=== PATIENT | female | born 1950 | race Caucasian/White ===

== ENCOUNTER 2020-06-15 01:44 | Emergency (ER) | payer MEDICARE, SELFPAY ==
--- NOTE | ~2020-06-15 | CT_ITS ---
EXAMINATION: CT brain wo con DATE: 06/15/2020 02:31 INDICATION: Dizziness TECHNIQUE: Computed tomography (CT) of the head was performed without intravenous contrast. The mA wa s adjusted according to patient size. Iterative reconstruction technique was employed. Exam dose: 60 5.33 mGy-cm total exam DLP. COMPARISON: 05/02/2016 CT brain FINDINGS: There is an old infarct in the posterior inferior aspect of the left cerebellar hemisphere. Bilateral chronic lacunar infarcts of the thalami (series 2 image 26). Bilateral carotid siphon and supraclinoid internal carotid artery calcifications and vertebral artery calcification are noted. There is nonspecific diminished attenuation of the cerebral white matter, l ikely due to chronic small vessel ischemic changes. No intracranial mass lesion or hemorrhage or recent cerebrovascular accident is evident. There is opacification of the posterior left ethmoid air cell. The paranasal sinuses are otherwise un remarkable. Diminished left pleural mastoid effusion since 05/02/2016. 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 Reviewed, dictated and finalized at [facility]. 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
[2020-06-15 01:48] VITALS: BP 165/70; PULSE 61; RESP 22; TEMP 36.1; O2SAT 93
--- NOTE | 2020-06-15 02:00 | ECG_ITS ---
Measurements Intervals [place] Rate: 60 P: [place]: 0 QRS: -74 QRSD: 222 T: 104 QT: 514 QTc: 514 Interpretive Statements ELECTRONIC VENTRICULAR PACEMAKER UNDERLYING PROBABLY ATRIAL FIBRILLATION BASELINE ARTIFACT- I, II, III, AVL NO FURTHER INTERPRETATION IS POSSIBLE ABNORMAL ECG Electronically Signed On 06-15-2020 8:06:07 CDT by Max Rodriguez D.O.
--- NOTE | 2020-06-15 02:02 | ED.NAVMDI ---
HPI - Nausea/Vomiting/Diarrhea General Chief complaint: Nausea/Vomiting/Diarrhea Stated complaint: N/V DIZZINESS Time Seen by Provider: 06/15/20 01:49 Source: patient Mode of arrival: EMS Limitations: no limitations History of Present Illness HPI Narrative: This patient is a 70 year old female who presents for evaluation of dizziness, nausea and vomiting. She states she woke up feeling nauseated tonight. She rolled over in bed and she developed vertigo with diaphoresis. She also reports multiple episodes of vomiting so she called EMS. She states she was given medication in route to hospital, no her dizziness and nausea have improved. She is developing a mild posterior headache. She denies chest pain, sob, fever, chills. She reports report sinus drainage. Related Data Home Medications Medication Instructions Recorded Confirmed aspirin 81 mg tablet,delayed 81 mg PO DAILY 07/30/19 06/15/20 release diazepam 2 mg tablet 2 mg PO BID PRN 07/30/19 02/05/20 digoxin 250 mcg (0.25 mg) tablet 250 mcg PO DAILY 07/30/19 06/15/20 insulin aspart U-100 100 unit/mL 20 unit SUB-Q TID 07/30/19 06/15/20 (3 mL) subcutaneous pen cyclobenzaprine 10 mg tablet 10 mg PO TID PRN 09/12/19 06/15/20 Allergies Allergy/AdvReac Type Severity Reaction Status Date / Time Sulfa (Sulfonamide Allergy Unknown Unknown Verified 06/15/20 02:33 Antibiotics) sulfanilamide Allergy Unknown Unknown Verified 06/15/20 02:33 Review of Systems Review of Systems: All systems reviewed & are unremarkable except as noted in HPI and below Constitutional: Constitutional: Denies chills and Denies fever(s) Eyes: Eyes: Denies change in vision ENT: Reports vertigo, Reports dizziness, Denies otalgia and Reports nasal congestion Cardiovascular: Cardiovascular: Denies chest pain Respiratory: Respiratory: Denies cough and Denies dyspnea Gastrointestinal: Gastrointestinal: Denies abdominal pain Neurologic: Denies focal weakness and Denies numbness [facility] Past Medical History Medical History (Updated 06/15/20 @ 05:26 by Jackeline Ngo MD) Chronic anxiety Chronic kidney disease (CKD) stage G3b/A1, moderately decreased glomerular filtration rate (GFR) between 30-44 mL/min/1.73 square meter and albuminuria creatinine ratio less than 30 mg/g Essential (primary) hypertension Family History Family History (Updated 02/26/19 @ 12:59 by DOCTOR UNKNOWN) Mother Family history of endocrine disorder Family history of diabetes mellitus in first degree relative Family history of coronary artery disease Family history of cardiovascular disease, Onset Age: 81 Sibling Hypertension Family history of diabetes mellitus in first degree relative Father Carcinoma of colon, Onset Age: 75 Patient's father is Family history of malignant neoplasm, Onset Age: 75 Social History Social History Smoking status: Heavy tobacco smoker Second hand tobacco smoke exposure: No Alcohol intake: never Gender identity (if verbalized by the patient): Female Exam Const: General: no acute distress and alert Orientation/consciousness: patient oriented x3 HENMT: Head: normocephalic and atraumatic Face and sinus: face symmetric Mouth: Yes Normal oral and palatal mucosa present, Yes lip normal and Yes oropharynx normal Eyes: Pupils: Equal, round and reactive pupils present EOM: EOMs intact bilaterally Chest: Chest palpation & inspection: normal inspection of the chest Resp: Effort & Inspection: normal respiratory effort, no retractions and no use of accessory muscles Auscultation: clear to auscultation bilaterally and no wheezes Cardio: Rate: regular rate Rhythm: regular rhythm Heart sounds: no murmurs GI: GI Palp: Yes Soft to palpation, No Tenderness to palpation present (GI), No Guarding due to palpation present (GI), No Rigid due to palpation, No Hernia present and No Rebound tenderness present Back/Spine/Pel
[2020-06-15] MEDS: ONDANSETRON INJ 4 MG/2 ML VIAL IV PUSH (02:12)
[2020-06-15 02:23] LABS: Glucose Point of Care 155 (65-105)
--- NOTE | 2020-06-15 02:23 | PC.NURSE ---
pt to CT via stretcher
[2020-06-15 02:25] LABS: Basophils Absolute Auto 0.1 K/mm3 (0.0-0.1); Basophils Percent Auto 0.7 % (0.2-1.2); Eosinophils Absolute Auto 0.2 K/mm3 (0-0.3); Eosinophils Percent Auto 2.3 % (0-4.4); Hematocrit 37.1 % (37.0-47.0); Hemoglobin 12.7 g/dL (12.0-15.0); Immature Granulocyte Absolute 0.07 K/mm3 (0.00-0.031); Immature Granulocyte Percent A 0.7 % (0-0.5); Lymphocytes Percent Auto 8.2 % (18.3-44.2); Mean Corpuscular HGB Conc 34.2 g/dl (32-36); Mean Corpuscular Hemoglobin 33.2 pg (26-34); Mean Corpuscular Volume 97.1 fl (80-100); Mean Platelet Volume 10.2 fl (7.4-10.4); Monocytes Absolute Auto 0.5 K/mm3 (0.1-0.6); Monocytes Percent Auto 4.9 % (2.6-8.5); Neutrophils Absolute Auto 8.2 K/mm3 (1.3-6.7); Neutrophils Percent Auto 83.2 % (45.5-73.1); Platelet Count Result 248 k/mm3 (150-375); Red Blood Count 3.82 M/mm3 (4.2-5.4); Red Cell Distribution Width 12.9 % (11.5-14.5); White Blood Count 9.8 K/mm3 (4.5-10.0)
[2020-06-15 02:43] LABS: Alanine Aminotransferase 15 U/L (4-35); Albumin Level 3.9 g/dL (3.5-5.1); Alkaline Phosphatase 58 U/L (38-126); Anion Gap 8 mmol/L (8-16); Aspartate Amino Transferase 26 U/L (14-36); Bilirubin,Total 0.3 mg/dL (0.2-1.3); Blood Urea Nitrogen 35 mg/dL (7-17); Calcium 9.8 mg/dL (8.4-10.2); Carbon Dioxide 22 mmol/L (22-30); Chloride 102 mmol/L (98-107); Estimated Glomerular Filt Rate 30; Glucose 175 mg/dL (65-105); Potassium 3.9 mmol/L (3.4-5.0); Sodium 132 mmol/L (137-145)
[2020-06-15 02:49] VITALS: BP 150/71; BP 156/68; PULSE 60
[2020-06-15 02:50] VITALS: BP 158/76; PULSE 60
[2020-06-15 03:24] LABS: Add Urine Microscopic? YES; Appearance Urine Cloudy (Clear); Bacteria Urine Trace /hpf; Bilirubin Urine Negative (Negative); Blood Urine 1+ (Negative); Color Urine Yellow (Yellow); Glucose Urine UA 1+ mg/dL (Negative); Ketones Urine Negative (Negative); Leukocyte Esterase Ur Trace LEU/UL (Negative); Mucus Urine Rare /lpf; Nitrate Urine Negative (Negative); Protein Urine 3+ mg/dL (Negative); Squamous Epithelial Cell Urine Occasional /hpf (Few); Urobilinogen Urine Negative mg/dL (<2.0)
[2020-06-15 03:48] VITALS: BP 158/62; PULSE 62; RESP 18; O2SAT 99
--- NOTE | 2020-06-15 04:20 | PC.NURSE ---
pt denies any n/v after po challenge.
[2020-06-15 04:40] VITALS: BP 167/68; PULSE 62; RESP 20; O2SAT 95
--- NOTE | 2020-06-15 04:59 | PC.NURSE ---
pt ambulated at this time w/ alessia rn and tushar rn. pt hed onto wall for a short period of time, but pt states thats her norm. she states she sometimes uses a walker or holds on to mena at home w/ no difficulty. pt denied any n/v/dizziness w/ ambulation. notified.
[2020-06-15 05:49] VITALS: BP 135/92; PULSE 60; RESP 12; O2SAT 99
== END 2020-06-15 05:51 | disposition home or self-care (01) ==
PROVIDERS: Emergency Provider General Practice; PCP Family Medicine
DX: R42 Dizziness and giddiness (principal); R11.2 Nausea with vomiting, unspecified; N39.0 Urinary tract infection, site not specified; I12.9 Hypertensive chronic kidney disease with stage 1 through stage 4 chronic kidney disease, or unspecified chronic kidney disease; N18.3 Chronic kidney disease, stage 3 (moderate); Z95.0 Presence of cardiac pacemaker; R94.31 Abnormal electrocardiogram [ECG] [EKG]; I67.2 Cerebral atherosclerosis; Z79.82 Long term (current) use of aspirin; Z79.4 Long term (current) use of insulin; F41.9 Anxiety disorder, unspecified
CPT/HCPCS: 36415; 70450; 80053; 81001; 82948; 85025; 87086; 87088; 93005; 96365; 96375; 99284; J0131; J2405

== ENCOUNTER 2021-06-26 18:37 | Inpatient (IN) | payer MEDICARE, SELFPAY ==
--- NOTE | ~2021-06-26 | XR_ITS ---
EXAMINATION: XR chest 2V DATE: 06/30/2021 09:56 INDICATION: Shortness of breath. TECHNIQUE: Frontal and lateral views of the chest were obtained. COMPARISON: Chest 2 views 06/26/2021 FINDINGS: There is no pneumonia, pleural effusion, or pneumothorax. Cardiomegaly is noted. There is a left chest wall pacer with leads in the right atrium and right ventricle. IMPRESSION: 1. Cardiomegaly. Reviewed, dictated and finalized at [facility]. IMPRESSION: 1. Cardiomegaly.
--- NOTE | ~2021-06-26 | XR_ITS ---
XR chest 2V DATE: 06/26/2021 19:08 INDICATION: Weakness, cough, shortness of breath, nausea for one week. History of hypertension. Smoke r. TECHNIQUE: PA and lateral views COMPARISON: 06/21/2016 PA and lateral chest FINDINGS: Cardiomegaly. Left-sided pacemaker device with leads overlying right atrium and right ventr icle. There is aortic calcification and tortuosity. There is mild pulmonary vascular congestion and redistribution. Rupa B-lines are noted, suggesting pulmonary interstitial edema. No pleural effusion is evident. No pneumothorax. IMPRESSION: Cardiomegaly, mild pulmonary vascular congestion and redistribution and pulmonary interst itial edema is, consistent with mild congestive heart failure Dual-lead left-sided pacemaker device Aortic calcification and tortuosity Reviewed, dictated and finalized at [facility]. IMPRESSION: Cardiomegaly, mild pulmonary vascular congestion and redistribution and pulmonary interstitial edema is, consistent with mild congestive heart pipe lure Dual-lead left-sided pacemaker device Aortic calcification and tortuosity
[2021-06-26 18:45] VITALS: BP 134/62; PULSE 67; RESP 14; TEMP 36.3; O2SAT 98
--- NOTE | 2021-06-26 18:45 | ECG_ITS ---
Measurements Intervals [place] Rate: 59 P: SD: 0 QRS: -6 QRSD: 108 T: 170 QT: 410 QTc: 408 Interpretive Statements ATRIAL FIBRILLATION WITH SLOW VENTRICULAR RESPONSE LEFT VENTRICULAR HYPERTROPHY WITH ST-T CHANGE BASELINE ARTIFACT- II, III, AVF, V3-V6 ABNORMAL ECG Electronically Signed On 06-27-2021 8:30:35 CDT by Max Rodriguez D.O.
[2021-06-26 19:03] LABS: Basophils Percent Auto 0.4 % (0.2-1.2); Eosinophils Absolute Auto 0.2 K/mm3 (0-0.3); Eosinophils Percent Auto 2.8 % (0-4.4); Immature Granulocyte Absolute 0.05 K/mm3 (0.00-0.031); Immature Granulocyte Percent A 0.7 % (0-0.5); Lymphocytes Absolute Auto 0.75 K/mm3 (0.9-3.2); Mean Corpuscular HGB Conc 31.7 g/dl (32-36); Mean Corpuscular Hemoglobin 33.5 pg (26-34); Mean Corpuscular Volume 105.8 fl (80-100); Mean Platelet Volume 9.8 fl (7.4-10.4); Monocytes Absolute Auto 0.4 K/mm3 (0.1-0.6); Monocytes Percent Auto 5.9 % (2.6-8.5); Neutrophils Percent Auto 80.2 % (45.5-73.1); Platelet Count Result 284 k/mm3 (150-375); Red Blood Count 1.73 M/mm3 (4.2-5.4); Red Cell Distribution Width 16.5 % (11.5-14.5); White Blood Count 7.5 K/mm3 (4.5-10.0)
[2021-06-26 19:07] LABS: Hematocrit 18.3 % (37.0-47.0); Hemoglobin 5.8 g/dL (12.0-15.0)
[2021-06-26 19:15] LABS: Alanine Aminotransferase 35 U/L (4-35); Albumin Level 3.6 g/dL (3.5-5.1); Alkaline Phosphatase 49 U/L (38-126); Anion Gap 6 mmol/L (8-16); Aspartate Amino Transferase 53 U/L (14-36); Bilirubin,Total 0.2 mg/dL (0.2-1.3); Blood Urea Nitrogen 45 mg/dL (7-17); Calcium 10.2 mg/dL (8.4-10.2); Carbon Dioxide 25 mmol/L (22-30); Chloride 104 mmol/L (98-107); Estimated CRCL calculation 28 ml/min; Estimated Glomerular Filt Rate 28; Glucose 111 mg/dL (65-110); Sodium 135 mmol/L (137-145)
[2021-06-26 19:30] VITALS: PULSE 65; RESP 20; O2SAT 99
[2021-06-26 19:35] VITALS: O2SAT 98
[2021-06-26 19:48] LABS: Add Urine Microscopic? YES; Appearance Urine Clear (Clear); Bacteria Urine Trace /hpf; Bilirubin Urine Negative (Negative); Blood Urine Negative (Negative); Color Urine Straw (Yellow); Glucose Urine UA Negative (Negative); Ketones Urine Negative (Negative); Leukocyte Esterase Ur 3+ LEU/UL (Negative); Mucus Urine Rare /lpf; Nitrate Urine Negative (Negative); Protein Urine 2+ mg/dL (Negative); Specific Grav Ur 1.009 (1.001-1.035); Squamous Epithelial Cell Urine Occasional /hpf (Few); Transitional Epi Cells Urine Rare /hpf (None Seen); Urobilinogen Urine Negative mg/dL (<2.0); WBC Urine >75 /hpf
[2021-06-26 20:16] LABS: Reticulocyte Hemoglobin Conten 28.9 pg (28.2-35.7); Reticulocyte Percent 6.88 % (0.7-4.3); Reticulocytes Absolute 0.12 B/L (32.2-175.7)
[2021-06-26 20:17] VITALS: BP 148/67; PULSE 79; RESP 17; O2SAT 100
[2021-06-26 20:53] LABS: Iron 26 ug/dL (37-170)
[2021-06-26 21:03] LABS: Percent Iron Saturation 6 % (20-50)
[2021-06-26 22:05] VITALS: PULSE 74; RESP 14; O2SAT 100
--- NOTE | 2021-06-26 22:25 | ED.WEAKNESS ---
HPI - Weakness General Chief complaint: Weakness Stated complaint: WEAKNESS [id number] Time Seen by Provider: 06/26/21 19:13 Source: patient Mode of arrival: ambulatory Limitations: no limitations History of Present Illness HPI Narrative: 71-year-old female History of diabetes and atrial fibrillation Patient here for complaint of feeling very weak for the last 7 to 10 days No particular inciting event and it is not especially worse today than it has been, just had not improved at all She has had a poor appetite but is eating She has not had a fever, and she does not have a cough vomiting or diarrhea or pain or burning when she urinates She has not vomited there has been no hematemesis no hematochezia and no tarry stools No focal weakness Related Data Home Medications Medication Instructions Recorded Confirmed aspirin 81 mg tablet,delayed 81 mg PO DAILY 07/30/19 03/03/21 release Allergies Allergy/AdvReac Type Severity Reaction Status Date / Time Sulfa (Sulfonamide Allergy Unknown Unknown Verified 06/26/21 19:36 Antibiotics) sulfanilamide Allergy Unknown Unknown Verified 06/26/21 19:36 Review of Systems Review of Systems: All systems reviewed & are unremarkable except as noted in HPI and below Constitutional: Constitutional: Reports no additional constitutional complaints, Denies chills, Reports fatigue, Denies fever(s), Denies headache(s) and Reports weakness Eyes: Eyes: Reports no additional eye complaints and Denies change in vision ENT: Denies headache(s) and Denies sore throat Cardiovascular: Cardiovascular: Denies chest pain and Denies dyspnea Respiratory: Respiratory: Denies cough and Denies dyspnea Gastrointestinal: Gastrointestinal: Denies abdominal pain, Denies bloating, Denies diarrhea and Denies vomiting Genitourinary: Genitourinary: Denies urinary frequency and Denies dysuria Musculoskeletal: Musculoskeletal: Reports myalgias, Denies deformity, Denies arthralgias, Denies joint swelling and Denies numbness Integumentary/Breasts: Skin/Breast: Denies rash and Denies wounds Neurologic: Denies headache(s), Denies focal weakness and Denies numbness Psychiatric: Psychiatric: Reports no additional psychiatric complaints Endocrine: Endocrine: Reports no additional endocrine complaints Hematologic/Lymphatic: Hematologic/Lymphatic: Reports no additional hematologic/lymphatic complaints Allergic/Immunologic: Allergic/Immunologic: Reports no additional allergic/immunologic complaints PMFSH Past Medical History Medical History Breast cancer screening by mammogram Cerebrovascular small vessel disease Chronic anxiety Chronic kidney disease (CKD) stage G3b/A1, moderately decreased glomerular filtration rate (GFR) between 30-44 mL/min/1.73 square meter and albuminuria creatinine ratio less than 30 mg/g Chronic kidney disease (CKD) stage G4/A3, severely decreased glomerular filtration rate (GFR) between 15-29 mL/min/1.73 square meter and albuminuria creatinine ratio greater than 300 mg/g CVA, old, 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 Encounter for hepatitis C screening test for low risk patient Essential (primary) hypertension Insomnia Nail fungal infection (03/03/21) all the nails on the feet CINDI on CPAP Family History Family History (Updated 02/26/19 @ 12:59 by DOCTOR UNKNOWN) Mother Family history of endocrine disorder Family history of diabetes mellitus in first degree relative Family history of coronary artery disease Family history of cardiovascular disease, Onset Age: 81 Sibling Hypertension Family history of diabetes mellitus in first degree relative Father Carcinoma of colon, Onset Age: 75 Patient's father is Family history of malignant neoplasm, Onset Age: 75 Social History Social History (Reviewed
--- NOTE | 2021-06-26 23:30 | PM.IMHP ---
H&P: HPI History of Present Illness Date/Time: 06/26/21 23:30 Chief Complaint: Fatigue Narrative: This is a 71-year-old female with past medical history significant for chronic kidney disease, hypertension, COPD/emphysema, obstructive sleep apnea on CPAP at nighttime, atrial fibrillation, pacemaker, type 2 diabetes mellitus, dyslipidemia, tobacco dependence smokes 1 pack per day. Patient presented to the emergency room due to fatigue ,decreased stamina, shortness of breath, palpitations, dizziness, lightheadedness. Preliminary workup was significant for hemoglobin of 5.6 and hematocrit of 18 patient denies any melena, hematemesis, hematochezia, she has been in her usual state of health until roughly 2 weeks Kirsten is symptoms started. She denied any fevers, rigors ,chills, cough ,sputum production, chest pain or leg swelling. A urinalysis was significant for numerous WBCs present a chest x-ray was significant for cardiomegaly and mild pulmonary vascular congestion. Patient has been placed in observation for further management treatment and evaluation. Review of Systems Review of Systems: Fatigue, shortness of breath palpitations Constitutional: Constitutional: Denies chills, Reports fatigue, Denies fever(s), Reports lethargy, Denies night sweats and Reports weakness Eyes: Eyes: Denies change in vision ENT: Denies dysphagia, Denies nasal congestion, Denies nasal discharge and Denies nasal obstruction Cardiovascular: Cardiovascular: Denies chest pain at rest, Denies chest pain with activity, Denies leg edema, Reports lightheadedness, Denies radiating jaw, neck or arm pain, Denies palpitations, Reports dyspnea, Reports dyspnea on exertion and Denies paroxysmal nocturnal dyspnea Respiratory: Respiratory: Denies change in phlegm color, Denies cough, Denies excessive phlegm production and Denies wheezing Gastrointestinal: Gastrointestinal: Denies melena, Denies hematochezia, Denies dyspepsia, Denies heartburn, Denies nausea and Denies vomiting Genitourinary: Genitourinary: Reports no additional female genitourinary complaints Musculoskeletal: Musculoskeletal: Reports no additional musculoskeletal complaints Integumentary/Breasts: Skin/Breast: Reports system reviewed and no additional complaints, except as docu Neurologic: Reports system reviewed and no additional complaints, except as documented Psychiatric: Psychiatric: Reports no additional psychiatric complaints Endocrine: Endocrine: Reports no additional endocrine complaints Hematologic/Lymphatic: Hematologic/Lymphatic: Reports no additional hematologic/lymphatic complaints Allergic/Immunologic: Allergic/Immunologic: Reports no additional allergic/immunologic complaints [facility] Past Medical History Medical History Breast cancer screening by mammogram Cerebrovascular small vessel disease Chronic anxiety Chronic kidney disease (CKD) stage G3b/A1, moderately decreased glomerular filtration rate (GFR) between 30-44 mL/min/1.73 square meter and albuminuria creatinine ratio less than 30 mg/g Chronic kidney disease (CKD) stage G4/A3, severely decreased glomerular filtration rate (GFR) between 15-29 mL/min/1.73 square meter and albuminuria creatinine ratio greater than 300 mg/g CVA, old, 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
[2021-06-27] VITALS (19 sets, daily range): BP systolic 114–177; BP diastolic 41–89; PULSE 54–89; RESP 14–21; TEMP 35.8–36.8; O2SAT 95–100; BMI 32.8
--- NOTE | 2021-06-27 00:36 | ADMGEN ---
This patient, Jaida Chew, was admitted to 2 Medical Room 258-01 @0030. Patient/family oriented to hospital policies and general routines including ID bracelet, bed and alarms, visiting hours, pain management, procedures, bathroom and other care routines, personal items, smoking policy, room service/diet, and visiting hours. Information on how to activate the Rapid Response Team has been discussed. Patient/Family are encouraged to report perceived risks to care and to ask questions if they do not understand what they are told or what they should do.
[2021-06-27] MEDS: SODIUM CHLORIDE 0.9% IV 250 ML 30 ML IV CONT (01:12)
[2021-06-27] MEDS: ACETAMINOPHEN 325 MG TABLET 650 MG PO (04:11)
[2021-06-27] MEDS: CYCLOBENZAPRINE HCL 10 MG TABLET PO (04:11)
[2021-06-27] MEDS: SODIUM CHLORIDE 0.9% IV 1,000 ML 125 ML IV CONT ×3 (04:14→19:49)
--- NOTE | 2021-06-27 08:16 | PM.IMPN ---
Progress Note: A&P Assessment and Plan (1) Urinary tract infection: Code(s): N39.0 - Urinary tract infection, site not specified Status: Acute Assessment and Plan: Patient has been started on ceftriaxone urine culture is pending strict intake/output denies urinary s/s at this time, denies urinary bleeding (2) Severe anemia: Code(s): D64.9 - Anemia, unspecified Status: Acute Assessment and Plan: Unclear etiology but has a significant drop in hemoglobin however patient with chronic kidney disease Peripheral smear pending Consult to nephrology Consult to GI Will consider Hematology-Oncology consult Retic count of 6.8 Transfused 2 units of packed red blood cells Transfuse as needed Her H/H on 2019 (last year) was 12.7/37.1, then yesterday (06/26/2021) her H/H was 5.8/18.3, then after 2 RBCs H/H was 7.9/25.4 this morning. Ordered occult stool testing, daily Niferex low dose, strict I/Os, and orthostatic vital signs. Instructed nursing staff to have H/H drawn every 6 hours until Hgb >8. (3) Chronic kidney disease (CKD) stage G4/A3, severely decreased glomerular filtration rate (GFR) between 15-29 mL/min/1.73 square meter and albuminuria creatinine ratio greater than 300 mg/g: Code(s): N18.4 - Chronic kidney disease, stage 4 (severe) Status: Acute Assessment and Plan: history of CKD per PCP notes BUN and creatinine at patient's baseline Continue to monitor appreciate [employer] Machine Operator consultation (4) Benign paroxysmal positional vertigo due to bilateral vestibular disorder: Code(s): H81.13 - Benign paroxysmal vertigo, bilateral Status: Acute Assessment and Plan: Supportive care no compaints at this time. (5) Chronic atrial fibrillation: Code(s): I48.20 - Chronic atrial fibrillation, unspecified Status: Acute Assessment and Plan: Rate controlled - HR 73 on VS, BPs range 154/82 to 114/60 On no anticoagulation, takes only daily 81 mg ASA (6) Tobacco use disorder, continuous: Code(s): F17.209 - Nicotine dependence, unspecified, with unspecified nicotine-induced disorders Status: Acute Assessment and Plan: does smoke daily Nicotine patches denied (7) Diabetic peripheral neuropathy associated with type 2 diabetes mellitus: Code(s): E11.42 - Type 2 diabetes mellitus with diabetic polyneuropathy Status: Acute Assessment and Plan: Supportive care, no complaints at this time. 142, 164 glucose levels checked will order PT/OT evaluation once Hgb stable and >8 (8) CINDI on CPAP: Code(s): G47.33 - Obstructive sleep apnea (adult) (pediatric); Z99.89 - Dependence on other enabling machines and devices Status: Acute Assessment and Plan: Continue CPAP at home, has been wearing (9) CVA, old, ataxia: Onset Date: 05/02/16 Code(s): I69.993 - Ataxia following unspecified cerebrovascular disease Status: Acute Assessment and Plan: Unchanged noted history above no new s/s or concerns Subjective Date/time seen: 06/27/21 08:16 Jaida denies any dizziness or light-headedness today. States that her nausea is improving today as well. She is currently on liquid diet, but really wants to have regular food. Will have nurse discuss Dietary orders with JOSEF ibanez GI has a procedure planned for today yet. She denies any recent surgeries or procedures, she states that she has been eating at least 3 meals a day, denies any loss of appetite/N/D/V. She states that she does eat red meat at home, she is not on a restricted diet. She denies any history of receiving blood or taking iron or having significant blood loss or history of cancer. She is postmenopausal, smokes daily, does not drink. PER her last PCP Dr. Walker office visit notes in February 2021: She does see an outpatient title officer regularly. Her PCP noted that she had lost 5 lb since her last visit. She uses her CPAP every night.
[2021-06-27 09:13] LABS: Glucose Point of Care 141 mg/dl (65-105)
[2021-06-27] MEDS: amLODIPine BESYLATE 5 MG TABLET 10 MG PO (09:18)
[2021-06-27] MEDS: allopurinoL 100 MG TABLET 200 MG PO (09:18)
[2021-06-27] MEDS: PANTOPRAZOLE SODIUM IV 40 MG VIAL IV PUSH ×2 (09:18→16:46)
[2021-06-27 10:17] LABS: Basophils Absolute Auto 0.1 K/mm3 (0.0-0.1); Basophils Percent Auto 0.9 % (0.2-1.2); Eosinophils Absolute Auto 0.2 K/mm3 (0-0.3); Eosinophils Percent Auto 3.3 % (0-4.4); Hematocrit 25.4 % (37.0-47.0); Hemoglobin 7.9 g/dL (12.0-15.0); Immature Granulocyte Absolute 0.03 K/mm3 (0.00-0.031); Immature Granulocyte Percent A 0.5 % (0-0.5); Lymphocytes Absolute Auto 1.06 K/mm3 (0.9-3.2); Mean Corpuscular HGB Conc 31.1 g/dl (32-36); Mean Corpuscular Hemoglobin 31.2 pg (26-34); Mean Corpuscular Volume 100.4 fl (80-100); Mean Platelet Volume 9.9 fl (7.4-10.4); Monocytes Absolute Auto 0.5 K/mm3 (0.1-0.6); Monocytes Percent Auto 7.1 % (2.6-8.5); Neutrophils Absolute Auto 4.8 K/mm3 (1.3-6.7); Neutrophils Percent Auto 72.2 % (45.5-73.1); Nucleated Red Blood Cells Perc 0.3 % (0.0-0.2); Platelet Count Result 277 k/mm3 (150-375); Red Blood Count 2.53 M/mm3 (4.2-5.4); Red Cell Distribution Width 20.2 % (11.5-14.5); White Blood Count 6.6 K/mm3 (4.5-10.0)
[2021-06-27 10:43] LABS: Prothrombin Time 13.4 Seconds (11.1-14.7)
[2021-06-27 10:44] LABS: Partial Thromboplastin Time 26.5 SECONDS (22.3-36.8)
--- NOTE | 2021-06-27 10:49 | PM.CNNEP ---
Assessment and Plan Assessment and plan (1) Chronic kidney disease, stage IV (severe): Code(s): N18.4 - Chronic kidney disease, stage 4 (severe) Status: Chronic Assessment and Plan: baseline creatinine runs around 1.5 - 1.8mg/dl in the last couple of years felt to be secondary to diabetes, hypertension, vascular disease, smoking, and age complicated by nephrotic range proteinuria (I have discussed renal biopsy in the past but has not done this) follow repeat labs and H/H (2) Severe anemia: Code(s): D64.9 - Anemia, unspecified Status: Acute Assessment and Plan: quite significant on admission s/p PRBC transfusion will empirically dose Epogen given her known CKD GI consultation follow trend of H/H (3) Essential (primary) hypertension: Code(s): I10 - Essential (primary) hypertension Status: Acute Assessment and Plan: reasonable control at this time (but a bit elevated) follow trend on BP medications (4) Diabetes: Code(s): E11.9 - Type 2 diabetes mellitus without complications Status: Chronic Assessment and Plan: follow accuchecks glycemic control Will continue to follow. History of Present Illness Reason for Consult Consult date: 06/27/21 Reason for consult: chronic renal failure Chief Complaint Chief complaint: Severe Anemia History of Present Illness Narrative: The patient is a 71-year-old [facility] female with past medical history as outlined below with complaints of fatigue in association with shortness of breath. The patient has noticed her symptoms of shortness of breath, fatigue as well as decreased stamina, palpitations, dizziness, and lightheadedness over the past 2 weeks. She denies any other subjective symptoms with regard to fevers, chills, nausea, vomiting, hematochezia, melena, hemoptysis or chest pain. Initially, she thought the symptoms would resolve on their own but as the time passed, it seemed that the symptoms were progressively getting worse. For this reason, she came to the emergency room for further evaluation. Workup and evaluation emergency room demonstrated the patient to be hemodynamically stable but routine blood test demonstrated her hemoglobin to be 5.6 with a hematocrit of 18. As already mentioned, she gave no history with regard to GI loss of blood. Her chest x-ray was significant for cardiomegaly and mild pulmonary vascular congestion as well. Her chemistry was consistent with her known history of chronic kidney disease and did not have any critical electrolyte abnormalities either. Given her symptoms as well as her severe anemia, she was admitted for packed red blood cell transfusion and further evaluation of her anemia. Since her admission, she has been transfused with packed red blood cells and has been seen in consultation by Gastroenterology who is tentatively planning for any EGD and colonoscopy on Tuesday to assess for GI loss. Given her chronic kidney disease, there is concern that she may have some anemia related to this as well. Renal consultation was requested due to her chronic kidney disease. The patient is quite familiar to me as I take care of her outpatient management of her chronic kidney disease. Her baseline creatinine has fluctuated to extremes in the last couple of years but when I last saw her in January of 2021, her creatinine was exactly what it was on admission here to the hospital at 1.8 mg/dL. More concerning has been her nephrotic range proteinuria that dates back as far as 2017 if not longer. Each time I have seen her in the office I brought up the issue of doing a renal biopsy for definitive diagnosis of her chronic kidney disease and she always states that she will think about it and never really pursue that much further than that. My suspicion has always been that her nephrotic range proteinuria as well as her chronic kidney disease is due to her diabetes and hypertension and ass
[2021-06-27 11:51] LABS: Glucose Point of Care 97 mg/dl (65-105)
--- NOTE | 2021-06-27 12:01 | WPDGICN ---
Assessment and Plan Assessment and plan (1) Acute blood loss anemia: Code(s): D62 - Acute posthemorrhagic anemia Status: Acute Assessment and Plan: last year hb in record reviewed and was normal. She is here with symptomatic anemia at least for 1 week but denies overt gib, last colonoscopy 5 years ago. She says that also using xarelto for afib anemia could also be related to advanced CKD with proteinuria but will do EGD and colonoscopy Tuesday to check if any GI source to explain anemia she has macrocytosis with normal b12, folate pending. Will get ldh to check for other causes (bili was normal), may need hematology consult (2) Chronic kidney disease, stage IV (severe): Code(s): N18.4 - Chronic kidney disease, stage 4 (severe) Status: Chronic Assessment and Plan: advanced ckd with proteinuria nephrology on board (3) Urinary tract infection: Code(s): N39.0 - Urinary tract infection, site not specified Status: Acute Assessment and Plan: started on abx (4) Diabetes: Code(s): E11.9 - Type 2 diabetes mellitus without complications Status: Chronic Assessment and Plan: medical treatment (5) Chronic atrial fibrillation: Code(s): I48.20 - Chronic atrial fibrillation, unspecified Status: Acute Assessment and Plan: xarelto on hold (6) Osteoarthritis involving multiple joints on both sides of body: Code(s): M15.9 - Polyosteoarthritis, unspecified Status: Acute (7) Proteinuria: Code(s): R80.9 - Proteinuria, unspecified Status: Acute GI Consult Note Consult date/time: 06/27/21 12:01 Reason for consult: severe anemia HPI: Jaida Chew is a 71 year old female with history of chronic kidney disease stage IV and proteinuria in nephrotic range (she is seeing nephrology as outpatient), hypertension, COPD/emphysema, obstructive sleep apnea on CPAP at nighttime, atrial fibrillation on xarelto, pacemaker, type 2 diabetes mellitus, dyslipidemia, tobacco dependence smokes 1 pack per day. She says that around Labor day weekend fell and hurt her back for which she saw chiropractor but last week with generalized fatigue, weakness and shortness of breath on exertion with palpitations. ER evaluation showed severe anemia with hemoglobin of 5.6, mcv 105, creat 1.8. WBC, inr and platelets normal. She denies overt gib with no melena, hematemesis or hematochezia. Denies using nsaid's (only on norco and cyclobenzaprine for her back pain), still on xarelto for afib but taking for quite some time. She had her last colonoscopy about 5 years ago with polyp, does not remember having egd. Seldom uses pepcid. A urinalysis was significant for numerous WBCs and also protein, started on antibiotics and chest x-ray reviewed, significant for cardiomegaly and mild pulmonary vascular congestion. Admitted and received blood transfusion. Denies abdominal pain but nausea with liquid diet. Review of Systems Constitutional: Constitutional: Reports fatigue and Reports weakness Eyes: Eyes: Reports no additional eye complaints ENT: Reports Normal hearing present Cardiovascular: Cardiovascular: Reports lightheadedness and Reports palpitations Respiratory: Respiratory: Reports dyspnea on exertion Gastrointestinal: Gastrointestinal: Denies abdominal pain, Denies melena and Denies hematochezia Genitourinary: Genitourinary: Denies hematuria Musculoskeletal: Musculoskeletal: Reports back pain Integumentary/Breasts: Skin/Breast: Denies dry skin Neurologic: Denies numbness Psychiatric: Psychiatric: Reports no additional psychiatric complaints [facility] Past Medical History Medical History (Updated 06/27/21 @ 12:09 by Ponce Garcia MD) Acute blood loss anemia Breast cancer screening by mammogram Cerebrovascular small vessel disease Chronic anxiety Chronic kidney disease (CKD) stage G3b/A1, moderately decreased glomerular filtration rate (GFR) be
[2021-06-27 16:42] LABS: Glucose Point of Care 93 mg/dl (65-105)
[2021-06-27] MEDS: ONDANSETRON INJ 4 MG/2 ML VIAL IV PUSH (19:53)
[2021-06-27] MEDS: traZODone HCL 50 MG TABLET PO (20:08)
[2021-06-27 20:26] LABS: Glucose Point of Care 189 mg/dl (65-105)
[2021-06-27 22:58] LABS: Hematocrit 25.1 % (37.0-47.0); Hemoglobin 7.9 g/dL (12.0-15.0)
[2021-06-28] VITALS (9 sets, daily range): BP systolic 133–171; BP diastolic 56–79; PULSE 67–99; RESP 16–21; TEMP 36.3–37.2; O2SAT 98–100
[2021-06-28] MEDS: CYCLOBENZAPRINE HCL 10 MG TABLET PO (01:09)
[2021-06-28 05:13] LABS: Basophils Absolute Auto 0.1 K/mm3 (0.0-0.1); Basophils Percent Auto 0.6 % (0.2-1.2); Eosinophils Absolute Auto 0.2 K/mm3 (0-0.3); Eosinophils Percent Auto 2.4 % (0-4.4); Hematocrit 28.2 % (37.0-47.0); Hemoglobin 8.4 g/dL (12.0-15.0); Immature Granulocyte Absolute 0.03 K/mm3 (0.00-0.031); Immature Granulocyte Percent A 0.4 % (0-0.5); Lymphocytes Percent Auto 12.8 % (18.3-44.2); Mean Corpuscular HGB Conc 29.8 g/dl (32-36); Mean Corpuscular Hemoglobin 31.6 pg (26-34); Mean Platelet Volume 10.1 fl (7.4-10.4); Monocytes Absolute Auto 0.6 K/mm3 (0.1-0.6); Monocytes Percent Auto 7.4 % (2.6-8.5); Neutrophils Percent Auto 76.4 % (45.5-73.1); Platelet Count Result 304 k/mm3 (150-375); Red Blood Count 2.66 M/mm3 (4.2-5.4); Red Cell Distribution Width 20.9 % (11.5-14.5); White Blood Count 7.8 K/mm3 (4.5-10.0)
[2021-06-28] MEDS: SODIUM CHLORIDE 0.9% IV 1,000 ML 125 ML IV CONT (05:26)
[2021-06-28 05:41] LABS: Alanine Aminotransferase 38 U/L (4-35); Albumin Level 3.8 g/dL (3.5-5.1); Alkaline Phosphatase 43 U/L (38-126); Anion Gap 11 mmol/L (8-16); Aspartate Amino Transferase 61 U/L (14-36); Bilirubin,Total 0.6 mg/dL (0.2-1.3); Blood Urea Nitrogen 35 mg/dL (7-17); Calcium 9.8 mg/dL (8.4-10.2); Carbon Dioxide 17 mmol/L (22-30); Chloride 110 mmol/L (98-107); Estimated CRCL calculation 33 ml/min; Estimated Glomerular Filt Rate 34; Glucose 98 mg/dL (65-110); Lactate Dehydrogenase 621 U/L (313-618); Potassium 4.3 mmol/L (3.4-5.0); Sodium 138 mmol/L (137-145)
[2021-06-28 08:26] LABS: Glucose Point of Care 121 mg/dl (65-105)
--- NOTE | 2021-06-28 08:35 | PM.IMPN ---
Progress Note: A&P Assessment and Plan (1) Urinary tract infection: Code(s): N39.0 - Urinary tract infection, site not specified Status: Acute Assessment and Plan: Patient Was started on Rocephin admission urine culture showed no growth and Rocephin was discontinued strict intake/output denies urinary s/s at this time, denies urinary bleeding (2) Severe anemia: Code(s): D64.9 - Anemia, unspecified Status: Acute Assessment and Plan: Unclear etiology but has a significant drop in hemoglobin however patient with chronic kidney disease Peripheral smear pending Consult to nephrology Consult to GI - has ordered an EGD and colonoscopy for tomorrow Consult to Hematology-Oncology ordered and will likely happen tomorrow Retic count of 6.8 Transfused 2 units of packed red blood cells Transfuse as needed Her H/H on 2019 (last year) was 12.7/37.1, then yesterday (06/26/2021) her H/H was 5.8/18.3, then after 2 RBCs H/H was 7.9/25.4 yesterday. Ordered occult stool testing, daily Niferex low dose, strict I/Os, and orthostatic vital signs. (3) Chronic kidney disease (CKD) stage G4/A3, severely decreased glomerular filtration rate (GFR) between 15-29 mL/min/1.73 square meter and albuminuria creatinine ratio greater than 300 mg/g: Code(s): N18.4 - Chronic kidney disease, stage 4 (severe) Status: Acute Assessment and Plan: history of CKD per PCP notes BUN and creatinine at patient's baseline Continue to monitor appreciate [employer] consultation (4) Benign paroxysmal positional vertigo due to bilateral vestibular disorder: Code(s): H81.13 - Benign paroxysmal vertigo, bilateral Status: Acute Assessment and Plan: Supportive care no compaints at this time. (5) Chronic atrial fibrillation: Code(s): I48.20 - Chronic atrial fibrillation, unspecified Status: Acute Assessment and Plan: Rate controlled - HR 56- 88 on VS, BPs range 148/56- 154/79 On no anticoagulation, takes only daily 81 mg ASA xarelto on hold (6) Tobacco use disorder, continuous: Code(s): F17.209 - Nicotine dependence, unspecified, with unspecified nicotine-induced disorders Status: Acute Assessment and Plan: does smoke daily Nicotine patches denied (7) Diabetic peripheral neuropathy associated with type 2 diabetes mellitus: Code(s): E11.42 - Type 2 diabetes mellitus with diabetic polyneuropathy Status: Acute Assessment and Plan: Supportive care, no complaints at this time. 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 She is here with symptomatic anemia at least for 1 week but denies overt gib, last colonoscopy 5 years ago. She says that also using xarelto for afib anemia could also be related to advanced CKD with proteinuria but will do EGD and colonoscopy Tuesday to check if any GI source to explain anemia she has macrocytosis with normal b12, folate pending. Will get ldh to check for other causes (bili was normal), may need hematology consult (11) Chronic kidney disease, stage IV (severe): Code(s): N18.4 - Chronic kidney disease, stage 4 (severe) Status: Chronic Assessment and Plan: advanced CKD with proteinuria nephrology consulted (12) Diabetes:
[2021-06-28] MEDS: amLODIPine BESYLATE 5 MG TABLET 10 MG PO (08:51)
[2021-06-28] MEDS: POLYSACCHARIDE IRON COMPLEX 150 MG CAPSULE PO (08:51)
[2021-06-28] MEDS: PANTOPRAZOLE SODIUM IV 40 MG VIAL IV PUSH ×2 (08:51→17:20)
--- NOTE | 2021-06-28 09:03 | PC.NURSE ---
unable to give 0800 allopurinol on time, waiting for pharmacy to send it. pharmacy notified
--- NOTE | 2021-06-28 09:45 | WPDGIPROGNO ---
Progress Note: A&P Assessment and Plan (1) Acute blood loss anemia: Code(s): D62 - Acute posthemorrhagic anemia Status: Acute Assessment and Plan: will assess with egd and colonoscopy tomorrow to check if any gi loss noted macrotysosi, mildly elevated LDH. If scopes unremarkable then may need hematology consult also she has underlying CKD with proteinuria (2) Acute on chronic kidney failure: Code(s): N17.9 - Acute kidney failure, unspecified; N18.9 - Chronic kidney disease, unspecified Status: Acute Assessment and Plan: by primary team h/o proteinuria and DM (3) Diabetes: Code(s): E11.9 - Type 2 diabetes mellitus without complications Status: Chronic (4) Proteinuria: Code(s): R80.9 - Proteinuria, unspecified Status: Acute (5) Urinary tract infection: Code(s): N39.0 - Urinary tract infection, site not specified Status: Acute Assessment and Plan: on abx (6) Chronic atrial fibrillation: Code(s): I48.20 - Chronic atrial fibrillation, unspecified Status: Acute Subjective Date/time seen: 06/28/21 09:45 Interval history: no new events other than restless night Review of Systems Review of Systems: All systems reviewed & are unremarkable except as noted in HPI and below Exam Const: General: comfortable and no acute distress HENMT: General nose exam: Normal nares present Eyes: General: appearance normal, both eyes and all related structures Neck: Neck: no JVD Resp: Auscultation: clear to auscultation bilaterally Cardio: Rate: regular rate Rhythm: regular rhythm GI: Inspection: non-distended GI Palp: Yes Soft to palpation Skin: General skin exam: normal color Neuro: General: gait normal Speech: normal speech Extrem: General: normal to inspection Psych: Mental Status: mental status grossly normal Objective Data Vital Signs Vital Signs: Vital Signs - 24 hr 06/27/21 14:00 06/27/21 16:55 06/27/21 20:00 Temperature 97.7 F Pulse Rate 65 72 69 Respiratory Rate 16 Blood Pressure 164/60 H Pulse Oximetry 100 06/27/21 20:48 06/27/21 22:30 06/28/21 00:00 Temperature 98.2 F Pulse Rate 66 56 L 73 Respiratory Rate 14 21 H Blood Pressure 154/79 H Pulse Oximetry 100 98 06/28/21 04:00 06/28/21 06:00 06/28/21 08:00 Temperature 98.9 F Pulse Rate 88 80 74 Respiratory Rate 16 Blood Pressure 148/56 H Pulse Oximetry 98 Intake/Output Intake/Output: Intake & Output 06/25/21 06/26/21 06/27/21 06/28/21 23:59 23:59 23:59 23:59 Intake Total 50 5480 1700 Output Total 3600 1500 Balance 50 1880 200 Meds/Results Medications: Active Medications Generic Name Dose Route Start Last Admin Trade Name Freq PRN Reason Stop Dose Admin Acetaminophen 650 mg 06/26/21 22:38 06/27/21 04:11 Acetaminophen 325 Mg Tablet PO 650 mg Q4H PRN Administration Mild Pain (1-3) or Fever Allopurinol 200 mg 06/27/21 08:00 06/27/21 09:18 Allopurinol 100 Mg Tablet PO 200 mg DAILY@0800 [facility] Administration Amlodipine Besylate 10 mg 06/27/21 09:00 06/28/21 08:51 Amlodipine Besylate 5 Mg Tablet PO 10 mg DAILY [facility] Administration Bisacodyl 20 mg 06/28/21 17:00 Bisacodyl 5 Mg Tablet Ec PO 06/28/21 17:01 ONCE ONE Cyclobenzaprine HCl 10 mg 06/27/21 03:03 06/28/21 01:09 Cyclobenzaprine Hcl 10 Mg Tablet PO 10 mg TID PRN Administration muscle spasm Diazepam 2 mg 06/27/21 03:03 Diazepam (*Crx) 2 Mg Tablet PO BID PRN Anxiety Ceftriaxone Sodium/Dextrose 1 gm in 50 mls @ 100 mls/hr 06/27/21 20:00 06/27/21 20:38 Rocephin 1 Gm/D5w 50 Ml IVPB Infused DAILY@2000 [facility] Infusion Insulin Aspart 20 units 06/27/21 08:00 06/27/21 08:30 Insulin Aspart (*Bkc) 100 Units/Ml SUB-Q 07/27/21 07:59 Not Given TIDWM [facility] Insulin Detemir 30 units 06/27/21 09:00 06/27/21 08:30 Insulin Detemir 100 Units/Ml SUB-Q 07/27/21
[2021-06-28] MEDS: allopurinoL 100 MG TABLET 200 MG PO (10:08)
[2021-06-28 10:18] LABS: Lactate Dehydrogenase 484 U/L (313-618)
[2021-06-28 10:41] LABS: Iron 31 ug/dL (37-170)
[2021-06-28 10:56] LABS: Percent Iron Saturation 8 % (20-50)
[2021-06-28 11:36] LABS: Glucose Point of Care 138 mg/dl (65-105)
--- NOTE | 2021-06-28 11:54 | PM.PNNEP ---
Progress Note: A&P Assessment and Plan (1) Chronic kidney disease, stage IV (severe): Code(s): N18.4 - Chronic kidney disease, stage 4 (severe) Status: Chronic Assessment and Plan: baseline creatinine runs around 1.5 - 1.8mg/dl in the last couple of years felt to be secondary to diabetes, hypertension, vascular disease, smoking, and age complicated by nephrotic range proteinuria (I have discussed renal biopsy in the past but has not done this) may need to add sodium bicarbonate -- follow CO2 levels follow repeat labs and UOP (2) Severe anemia: Code(s): D64.9 - Anemia, unspecified Status: Acute Assessment and Plan: quite significant on admission s/p PRBC transfusion will empirically dose Epogen given her known CKD on IV iron as well GI following - EGD + colonoscopy tomorrow follow trend of H/H (3) Essential (primary) hypertension: Code(s): I10 - Essential (primary) hypertension Status: Acute Assessment and Plan: reasonable control at this time follow trend on BP medications (4) Diabetes: Code(s): E11.9 - Type 2 diabetes mellitus without complications Status: Chronic Assessment and Plan: follow accuchecks glycemic control Will continue to follow. Subjective Date/time seen: 06/28/21 11:54 Appears to be doing better today; H/H doing better since admission PRBC transfusion; feels like she has more energy in comparison to prior to hospitalization; noted plans for EGD + colonoscopy to assess for possible GI blood loss; no apparent distress at the time of my visit. Exam Narrative: General: WD/WN male/female in NAD Heart: normal S1 and S2; no rub Lungs: clear to auscultation Abdomen: soft, nontender, nondistended, positive bowel sounds Extremities: no cyanosis or clubbing; no edema Skin: warm and dry Objective Data Vital Signs Vital Signs: Vital Signs Temp Pulse Resp BP Pulse Ox 06/28/21 08:00 74 06/28/21 06:00 37.2 C 80 16 148/56 H 98 06/28/21 04:00 88 06/28/21 00:00 73 06/27/21 22:30 56 L 21 H 98 06/27/21 20:48 36.8 C 66 14 154/79 H 100 06/27/21 20:00 69 Intake/Output Intake/Output: Intake & Output 06/25/21 06/26/21 06/27/21 06/28/21 23:59 23:59 23:59 23:59 Intake Total 50 5480 2780 Output Total 3600 1500 Balance 50 1880 1280 Meds/Results Medications: Active Medications Generic Name Dose Route Start Last Admin Trade Name Freq PRN Reason Stop Dose Admin Acetaminophen 650 mg 06/26/21 22:38 06/27/21 04:11 Acetaminophen 325 Mg Tablet PO 650 mg Q4H PRN Administration Mild Pain (1-3) or Fever Hydrocodone Bitart/Acetaminophen 1 tab 06/28/21 13:27 Hydrocodone/Acetaminophen (*Crx) 7.5-325 Mg Tablet PO Q6H PRN Pain Rated 7-10 Hydrocodone Bitart/Acetaminophen 1 tab 06/28/21 13:30 Hydrocodone/Acetaminophen (*Crx) 5-325 Mg Tablet PO Q6H PRN Pain Rated 4-6 Allopurinol 200 mg 06/27/21 08:00 06/28/21 10:08 Allopurinol 100 Mg Tablet PO 200 mg DAILY@0800 [facility] Administration Amlodipine Besylate 10 mg 06/27/21 09:00 06/28/21 08:51 Amlodipine Besylate 5 Mg Tablet PO 10 mg DAILY [facility] Administration Bisacodyl 20 mg 06/28/21 17:00 Bisacodyl 5 Mg Tablet Ec PO 06/28/21 17:01 ONCE ONE Cyclobenzaprine HCl 10 mg 06/27/21 03:03 06/28/21 01:09 Cyclobenzaprine Hcl 10 Mg Tablet PO 10 mg TID PRN Administration muscle spasm Diazepam 2 mg 06/27/21 03:03 Diazepam (*Crx) 2 Mg Tablet PO BID PRN Anxiety Iron Sucrose 200 mg/ Sodium 60 mls @ 120 mls/hr 06/28/21 16:50 Chloride IVPB QAM [facility] Insulin Aspart 20 units 06/27/21 08:00 06/27/21 08:30 Insulin Aspart (*Bkc) 100 Units/Ml SUB-Q 07/27/21 07:59 Not Given TIDWM [facility] Insulin Detemir 30 units 06/27/21 09:00 06/27/21 08:30 Insulin Detemir 100 Units/Ml SUB-Q 07/27/21 08:59 Not Given
[2021-06-28] MEDS: IRON SUCROSE COMPLEX 200 MG in SODIUM CHLORIDE 0.9% IV 50 ML 120 MG IVPB (17:20)
[2021-06-28] MEDS: BISACODYL 5 MG TABLET EC 20 MG PO (17:20)
[2021-06-28 17:21] LABS: Glucose Point of Care 158 mg/dl (65-105)
[2021-06-28] MEDS: EPOETIN ALFA-EPBX 20,000 UNITS/ML VIAL 20000 UNITS SUB-Q (17:54)
[2021-06-28] MEDS: polyethylene glycoL 3350 238 GM BOTTLE PO (17:55)
[2021-06-28] MEDS: traZODone HCL 50 MG TABLET PO (20:04)
[2021-06-28 20:41] LABS: Glucose Point of Care 137 mg/dl (65-105)
[2021-06-29] VITALS (12 sets, daily range): BP systolic 135–181; BP diastolic 46–93; PULSE 61–89; RESP 16–21; TEMP 36.4; O2SAT 95–100
[2021-06-29] MEDS: MAGNESIUM CITRATE 300 ML BTL PO (04:04)
[2021-06-29] MEDS: LIDOCAINE 5% PATCH 3 PATCH TRANSDERM (04:04)
[2021-06-29 06:41] LABS: Basophils Absolute Auto 0.1 K/mm3 (0.0-0.1); Basophils Percent Auto 0.7 % (0.2-1.2); Eosinophils Absolute Auto 0.2 K/mm3 (0-0.3); Hematocrit 28.8 % (37.0-47.0); Hemoglobin 9.2 g/dL (12.0-15.0); Immature Granulocyte Absolute 0.05 K/mm3 (0.00-0.031); Immature Granulocyte Percent A 0.7 % (0-0.5); Lymphocytes Absolute Auto 0.83 K/mm3 (0.9-3.2); Lymphocytes Percent Auto 11.2 % (18.3-44.2); Mean Corpuscular HGB Conc 31.9 g/dl (32-36); Mean Corpuscular Hemoglobin 31.5 pg (26-34); Mean Corpuscular Volume 98.6 fl (80-100); Mean Platelet Volume 10.3 fl (7.4-10.4); Monocytes Absolute Auto 0.6 K/mm3 (0.1-0.6); Monocytes Percent Auto 7.7 % (2.6-8.5); Neutrophils Absolute Auto 5.8 K/mm3 (1.3-6.7); Neutrophils Percent Auto 77.7 % (45.5-73.1); Platelet Count Result 313 k/mm3 (150-375); Red Blood Count 2.92 M/mm3 (4.2-5.4); Red Cell Distribution Width 19.5 % (11.5-14.5); White Blood Count 7.4 K/mm3 (4.5-10.0)
--- NOTE | 2021-06-29 06:41 | PM.PNNEP ---
Progress Note: A&P Assessment and Plan (1) Chronic kidney disease, stage IV (severe): Code(s): N18.4 - Chronic kidney disease, stage 4 (severe) Status: Chronic Assessment and Plan: baseline creatinine runs around 1.5 - 1.8mg/dl in the last couple of years felt to be secondary to diabetes, hypertension, vascular disease, smoking, and age complicated by nephrotic range proteinuria (I have discussed renal biopsy in the past but patient has been reluctant to comply) may need to add sodium bicarbonate -- follow CO2 levels. Labs are pending follow repeat labs and UOP (2) Severe anemia: Code(s): D64.9 - Anemia, unspecified Status: Acute Assessment and Plan: quite significant on admission s/p PRBC transfusion on Epogen and IV iron as well GI following - EGD + colonoscopy tomorrow follow trend of H/H (3) Essential (primary) hypertension: Code(s): I10 - Essential (primary) hypertension Status: Acute Assessment and Plan: reasonable control at this time follow trend on BP medications (4) Diabetes: Code(s): E11.9 - Type 2 diabetes mellitus without complications Status: Chronic Assessment and Plan: on Accu-Cheks and sliding-scale insulin Subjective Date/time seen: 06/29/21 06:41 Interval history: the patient is feeling better today. She is not as shortness breath as she was on admission she is undergoing colonoscopy prep. Exam Narrative: General: WD/WN male/female in NAD Heart: normal S1 and S2; no rub or gallop Lungs: clear to auscultation Abdomen: soft, nontender, nondistended, positive bowel sounds Extremities: no edema Skin: no rash Objective Data Vital Signs Vital Signs: Vital Signs - 24 hr 06/28/21 08:00 06/28/21 12:00 06/28/21 14:00 Temperature 36.4 C L Pulse Rate 74 70 67 Respiratory Rate 18 Blood Pressure 133/79 Pulse Oximetry 100 06/28/21 16:00 06/28/21 20:00 06/28/21 22:00 Temperature 36.3 C L Pulse Rate 71 99 86 Respiratory Rate 21 H Blood Pressure 171/60 H Pulse Oximetry 100 06/29/21 00:00 06/29/21 04:00 Temperature Pulse Rate 82 66 Respiratory Rate Blood Pressure Pulse Oximetry Intake/Output Intake/Output: Intake & Output 06/26/21 06/27/21 06/28/21 06/29/21 23:59 23:59 23:59 23:59 Intake Total 50 5480 4140 Output Total 3600 3100 600 Balance 50 1880 1040 -600 Meds/Results Medications: Active Medications Generic Name Dose Route Start Last Admin Trade Name Freq PRN Reason Stop Dose Admin Acetaminophen 650 mg 06/26/21 22:38 06/27/21 04:11 Acetaminophen 325 Mg Tablet PO 650 mg Q4H PRN Administration Mild Pain (1-3) or Fever Hydrocodone Bitart/Acetaminophen 1 tab 06/28/21 13:27 Hydrocodone/Acetaminophen (*Crx) 7.5-325 Mg Tablet PO Q6H PRN Pain Rated 7-10 Hydrocodone Bitart/Acetaminophen 1 tab 06/28/21 13:30 Hydrocodone/Acetaminophen (*Crx) 5-325 Mg Tablet PO Q6H PRN Pain Rated 4-6 Allopurinol 200 mg 06/27/21 08:00 06/28/21 10:08 Allopurinol 100 Mg Tablet PO 200 mg DAILY@0800 [facility] Administration Amlodipine Besylate 10 mg 06/27/21 09:00 06/28/21 08:51 Amlodipine Besylate 5 Mg Tablet PO 10 mg DAILY [facility] Administration Cyclobenzaprine HCl 10 mg 06/27/21 03:03 06/28/21 01:09 Cyclobenzaprine Hcl 10 Mg Tablet PO 10 mg TID PRN Administration muscle spasm Diazepam 2 mg 06/27/21 03:03 Diazepam (*Crx) 2 Mg Tablet PO BID PRN Anxiety Epoetin Charles-epbx 10,000 units 06/29/21 16:00 Epoetin Charles-Epbx 10,000 Units/Ml Vial SUB-Q [id number] [facility] Iron Sucrose 200 mg/ Sodium 60 mls @ 120 mls/hr 06/28/21 16:50 06/28/21 18:00 Chloride IVPB Infused QAM [facility] Infusion Insulin Aspart 20 units 06/27/21 08:00 06/27/21 08:30 Insulin Aspart (*Bkc) 100 Units/Ml SUB-Q 07/27/21 07:59 Not Given TIDWM [facility] Insulin Detemir 30 unit
[2021-06-29 07:09] LABS: Alanine Aminotransferase 44 U/L (4-35); Albumin Level 4.4 g/dL (3.5-5.1); Alkaline Phosphatase 59 U/L (38-126); Anion Gap 12 mmol/L (8-16); Aspartate Amino Transferase 62 U/L (14-36); Bilirubin,Total 0.5 mg/dL (0.2-1.3); Blood Urea Nitrogen 28 mg/dL (7-17); Calcium 10.4 mg/dL (8.4-10.2); Carbon Dioxide 19 mmol/L (22-30); Chloride 108 mmol/L (98-107); Estimated CRCL calculation 33 ml/min; Estimated Glomerular Filt Rate 34; Glucose 99 mg/dL (65-110); Sodium 139 mmol/L (137-145)
[2021-06-29 09:10] LABS: Glucose Point of Care 96 mg/dl (65-105)
[2021-06-29] MEDS: amLODIPine BESYLATE 5 MG TABLET 10 MG PO (09:24)
[2021-06-29] MEDS: IRON SUCROSE COMPLEX 200 MG in SODIUM CHLORIDE 0.9% IV 50 ML 120 MG IVPB (09:24)
[2021-06-29] MEDS: allopurinoL 100 MG TABLET 200 MG PO (09:24)
[2021-06-29] MEDS: PANTOPRAZOLE SODIUM IV 40 MG VIAL IV PUSH (09:25)
[2021-06-29] MEDS: HYDROcodone/acetaminophen (*CRX) 7.5-325 MG TABLET 1 TAB PO (09:25)
--- NOTE | 2021-06-29 11:28 | P.PNIM_ITS ---
Progress Note: A&P Assessment and Plan (1) Severe anemia: Onset Date: ~06/26/21 Code(s): D64.9 - Anemia, unspecified Status: Acute Assessment and Plan: Hemoglobin 1 year ago was within normal limits. Presented with hemoglobin 5.8. Etiology unclear, may be multifactorial to include iron deficiency and chronic kidney disease. She is on chronic anticoagulation, however no evidence of bleeding prior to or since admission. * Has received 2 units pRBC on 06/27/2021. H&H stabilized following transfusion. * May be related to chronic kidney disease. Appreciate Nephrology recommendations. Continue Epogen * Gastroenterology following; planning for EGD and colonoscopy today. * Continue Protonix. Holding aspirin and xarelto. Avoid NSAIDs. * Continue with IV iron infusions. Iron panel reviewed * Hematology also consulted, input is appreciated * Continue should trend hemoglobin and hematocrit. Improved with hemoglobin 9.2 today * Peripheral smear reviewed; appreciate hematology input . (2) Chronic kidney disease (CKD) stage G4/A3, severely decreased glomerular filtration rate (GFR) between 15-29 mL/min/1.73 square meter and albuminuria creatinine ratio greater than 300 mg/g: Code(s): N18.4 - Chronic kidney disease, stage 4 (severe) Status: Acute Assessment and Plan: Baseline creatinine noted to be 1.5-1.8 * Appreciate nephrology recommendation * Renal function appears to be at her baseline at this time * Proteinuria noted; nephrology aware and monitoring * Monitor intake and output * Renally dose medications and avoid nephrotoxins * Continue to monitor renal function daily (3) Chronic atrial fibrillation: Code(s): I48.20 - Chronic atrial fibrillation, unspecified Status: Acute Assessment and Plan: Rate has been well controlled * Home xarelto on hold * Continue carvedilol (4) Tobacco use disorder, continuous: Code(s): F17.209 - Nicotine dependence, unspecified, with unspecified nicotine-induced disorders Status: Acute Assessment and Plan: History of smoking 1 pack per day for 50 years * She has declined need for nicotine patch during this admission * Continue to reinforce smoking cessation (5) Diabetes: Code(s): E11.9 - Type 2 diabetes mellitus without complications Status: Chronic Assessment and Plan: Last A1c January 2020 was 6.7 * Continue Accu-Cheks, sliding scale insulin, hypoglycemic protocol * Check updated A1c (6) CINDI on CPAP: Code(s): G47.33 - Obstructive sleep apnea (adult) (pediatric); Z99.89 - Dependence on other enabling machines and devices Status: Acute Assessment and Plan: Continue home CPAP (7) Urinary tract infection: Code(s): N39.0 - Urinary tract infection, site not specified Status: Acute Assessment and Plan: Ruled out. * Started on IV Rocephin that has since been discontinued * Denies urinary symptoms * Urine culture negative Subjective Date/time seen: 06/29/21 11:28 Interval history: Date of service: 06/29/2021 Jaida Chew is a 71-year-old female with a history of CKD, CVA, hypertension, CINDI, diabetes mellitus, chronic anemia who is seen in follow-up for anemia of unknown origin. She reports that she is feeling pretty well today. She complains of some pain in her legs in her hips which she attributes to sitting on the commode. She states that she was on the toilet for most of the night due to colonoscopy prep. S
--- NOTE | 2021-06-29 11:28 | PM.IMPN ---
Progress Note: A&P Assessment and Plan (1) Severe anemia: Onset Date: ~06/26/21 Code(s): D64.9 - Anemia, unspecified Status: Acute Assessment and Plan: Hemoglobin 1 year ago was within normal limits. Presented with hemoglobin 5.8. Etiology unclear, may be multifactorial to include iron deficiency and chronic kidney disease. She is on chronic anticoagulation, however no evidence of bleeding prior to or since admission. Has received 2 units pRBC on 06/27/2021. H&H stabilized following transfusion. May be related to chronic kidney disease. Appreciate Nephrology recommendations. Continue Epogen Gastroenterology following; planning for EGD and colonoscopy today. Continue Protonix. Holding aspirin and xarelto. Avoid NSAIDs. Continue with IV iron infusions. Iron panel reviewed Hematology also consulted, input is appreciated Continue should trend hemoglobin and hematocrit. Improved with hemoglobin 9.2 today Peripheral smear reviewed; appreciate hematology input . (2) Chronic kidney disease (CKD) stage G4/A3, severely decreased glomerular filtration rate (GFR) between 15-29 mL/min/1.73 square meter and albuminuria creatinine ratio greater than 300 mg/g: Code(s): N18.4 - Chronic kidney disease, stage 4 (severe) Status: Acute Assessment and Plan: Baseline creatinine noted to be 1.5-1.8 Appreciate nephrology recommendation Renal function appears to be at her baseline at this time Proteinuria noted; nephrology aware and monitoring Monitor intake and output Renally dose medications and avoid nephrotoxins Continue to monitor renal function daily (3) Chronic atrial fibrillation: Code(s): I48.20 - Chronic atrial fibrillation, unspecified Status: Acute Assessment and Plan: Rate has been well controlled Home xarelto on hold Continue carvedilol (4) Tobacco use disorder, continuous: Code(s): F17.209 - Nicotine dependence, unspecified, with unspecified nicotine-induced disorders Status: Acute Assessment and Plan: History of smoking 1 pack per day for 50 years She has declined need for nicotine patch during this admission Continue to reinforce smoking cessation (5) Diabetes: Code(s): E11.9 - Type 2 diabetes mellitus without complications Status: Chronic Assessment and Plan: Last A1c January 2020 was 6.7 Continue Accu-Cheks, sliding scale insulin, hypoglycemic protocol Check updated A1c (6) CINDI on CPAP: Code(s): G47.33 - Obstructive sleep apnea (adult) (pediatric); Z99.89 - Dependence on other enabling machines and devices Status: Acute Assessment and Plan: Continue home CPAP (7) Urinary tract infection: Code(s): N39.0 - Urinary tract infection, site not specified Status: Acute Assessment and Plan: Ruled out. Started on IV Rocephin that has since been discontinued Denies urinary symptoms Urine culture negative Subjective Date/time seen: 06/29/21 11:28 Interval history: Date of service: 06/29/2021 Jaida Chew is a 71-year-old female with a history of CKD, CVA, hypertension, CINDI, diabetes mellitus, chronic anemia who is seen in follow-up for anemia of unknown origin. She reports that she is feeling pretty well today. She complains of some pain in her legs in her hips which she attributes to sitting on the commode. She states that she was on the toilet for most of the night due to colonoscopy prep. She denies any abdominal pain. Denies nausea or vomiting. She has been having frequent stools with her colonoscopy prep. Denies melena or hematochezia. She denies fevers or chills. Denies shortness of breath, cough, chest pain, or palpitations. She does feel some sinus congestion which she relates to the weather. She reported ?tickle in my throat? this morning but this got better. She has not had anything to eat. She denies dysuria, hematuria,
[2021-06-29 11:54] LABS: Glucose Point of Care 97 mg/dl (65-105)
[2021-06-29 14:18] LABS: Glucose Point of Care 94 mg/dl (65-105)
--- NOTE | 2021-06-29 14:24 | WPDANESEPPF ---
Anes - Initial Pre Proc Eval Procedure: Operation Date: 06/29/21 14:30 Proposed Procedures p Esophagogastroduodenoscopy & Colonoscopy - Ponce Garcia MD Date/Time: 06/29/21 14:24 Surgeon: Una Box PA-C Pre Op Diagnosis: Severe Anemia Patient Data Age: 71 Gender: F Height: 1.6 m Weight: 84.1 kg Last Vital Signs Temp 36.4 C 06/29/21 06:00 Pulse 66 06/29/21 12:00 Resp 20 06/29/21 06:00 BP 181/67 H 06/29/21 06:00 Pulse Ox 98 06/29/21 06:00 Allergies Allergy/AdvReac Type Severity Reaction Status Date / Time Sulfa (Sulfonamide Allergy Unknown Unknown Verified 06/29/21 14:19 Antibiotics) sulfanilamide Allergy Unknown Unknown Verified 06/29/21 14:19 Home Medications Medication Instructions Recorded Confirmed Type aspirin 81 mg tablet,delayed 81 mg PO DAILY 07/30/19 06/27/21 History release ondansetron HCl 4 mg PO Q8H PRN #10 tablet 06/15/20 06/27/21 Rx lisinopril 30 mg tablet 30 mg PO DAILY #90 tablet 01/20/21 06/27/21 Rx pravastatin 40 mg tablet 40 mg PO DAILY #90 tablet 02/02/21 06/27/21 Rx fenofibrate 150 mg capsule 150 mg PO DAILY #90 cap 02/17/21 06/27/21 Rx allopurinol 100 mg tablet 200 mg PO DAILY #60 tablet 03/02/21 06/27/21 Rx cyclobenzaprine 10 mg tablet 10 mg PO TID PRN #90 tablet 03/03/21 06/27/21 Rx trazodone 50 mg tablet 50 mg PO QHS #30 tablet 03/03/21 06/27/21 Rx meclizine 12.5 mg tablet 12.5 mg PO TID PRN #90 tablet 03/19/21 06/27/21 Rx hydrochlorothiazide 25 mg tablet 25 mg PO DAILY #30 tablet 03/20/21 06/27/21 Rx carvedilol 25 mg tablet 25 mg PO Q12H #180 tablet 03/27/21 06/27/21 Rx hydrocodone 10 mg-acetaminophen 1 tablet PO Q6H PRN #120 tablet 06/02/21 06/27/21 Rx 325 mg tablet amlodipine 10 mg tablet 10 mg PO DAILY #90 tablet 06/08/21 06/27/21 Rx diazepam 2 mg PO BID PRN 06/27/21 06/27/21 History insulin aspart U-100 [Novolog 20 unit SUBCUT TID 06/27/21 06/27/21 History Flexpen U-100 Insulin] insulin detemir U-100 [Levemir 30 unit SUB-Q DAILY 06/27/21 06/27/21 History FlexTouch U-100 Insuln] rivaroxaban [Xarelto] 20 mg PO DAILY 06/29/21 06/29/21 History Laboratory Tests 06/28/21 06/28/21 06/29/21 17:19 20:02 06:08 WBC 7.4 K/mm3 K/mm3 (4.5-10.0) RBC 2.92 M/mm3 L M/mm3 (4.2-5.4) Hgb 9.2 g/dL L g/dL (12.0-15.0) Hct 28.8 % L % (37.0-47.0) MCV 98.6 fl D fl (80-100) MCH 31.5 pg pg (26-34) MCHC 31.9 g/dl L g/dl (32-36) RDW 19.5 % H % (11.5-14.5) Plt Count 313 k/mm3 k/mm3 (150-375) MPV 10.3 fl fl (7.4-10.4) Immature Gran % (Auto) 0.7 % H % (0-0.5) Neut % (Auto) 77.7 % H % (45.5-73.1) Lymph % (Auto) 11.2 % L % (18.3-44.2) [place] % (Auto) 7.7 % % (2.6-8.5) Eos % (Auto) 2.0 % % (0-4.4) Baso % (Auto) 0.7 % % (0.2-1.2) Lymph # (Auto) 0.83 K/mm3 L K/mm3 (0.9-3.2) [place] # (Auto) 0.6 K/mm3 K/mm3 (0.1-0.6) Eos # (Auto) 0.2 K/mm3 K/mm3 (0-0.3) Baso # (Auto) 0.1 K/mm3 K/mm3 (0.0-0.1) Abs Immat Gran (auto) 0.05 K/mm3 H K/mm3 (0.00-0.031) Absolute Neuts (auto) 5.8 K/mm3 K/mm3 (1.3-6.7) Absolute Nucleated RBC 0.0 K/mm3 K/mm3 (0.0-0.012) Nucleated RBC % 0.0 % % (0.0-0.2) Sodium Potassium Chloride Carbon Dioxide Anion Gap BUN Creatinine Estim Creat Clear Calc Estimated GFR Glucose POC Capillary Glucose 158 mg/dl H mg/dl 137 mg/dl H mg/dl (65-105) (65-105) Calcium Total Bilirubin AST ALT Alkaline Phosphatase Total Protein Albumin 06/29/21 06/29/21 06/29/21 06:08 09:05 11:52 WBC RBC Hgb Hct MCV
[2021-06-29] MEDS: LACTATED RINGERS 1,000 ML 150 ML IV CONT (14:28)
--- NOTE | 2021-06-29 16:13 | SUR.OPER ---
EGD ENDED 1605 AND COLON STARTED 1611
[2021-06-29 17:10] LABS: Glucose Point of Care 92 mg/dl (65-105)
--- NOTE | 2021-06-29 17:27 | SUR.PHASEII ---
Pts eyeglasses and denture plate were returned to her prior to returning her to her room.
[2021-06-29] MEDS: EPOETIN ALFA-EPBX 10,000 UNITS/ML VIAL 10000 UNITS SUB-Q (17:40)
--- NOTE | 2021-06-29 18:04 | PDONCCN ---
HPI - Date of Consult Date/Time: 06/29/21 18:04 Requesting Physician: Una Box PA-C Primary Care Provider: Rolando Walker MD - Consult Narrative Reason for consult: Anemia Narrative: Jaida Chew is a 71 year old female with history of chronic kidney disease, hypertension, COPD, sleep apnea, atrial fibrillation and type 2 diabetes came into the hospital with total exhaustion and fatigue. She denies any chest pain but does have some shortness of breath. She was having some lightheadedness and dizziness and found to have hemoglobin of 5.6 on arrival to the hospital. She denies any melena and hematochezia. She denies any fever chills. She denies any weight loss. She lives by herself and does not eat much. She denies being a vegetarian. Patient had EGD done today that showed single bleeding lesion in the stomach there was cauterized. Patient also received 2 units of packed red blood cell. He is feeling better. Review of Systems - Review of Systems All systems reviewed & are unremarkable except as noted in HPI and bel - Neurologic Reports system reviewed and no additional complaints, except as documented, Reports hearing normal, Reports weakness, Denies headache(s), Denies focal weakness, Denies numbness PMFSH Medical History: Medical History (Last Updated 06/28/21 @ 09:47 by Ponce Garcia MD) Acute blood loss anemia Acute on chronic kidney failure Breast cancer screening by mammogram Cerebrovascular small vessel disease Chronic anxiety Chronic kidney disease (CKD) stage G3b/A1, moderately decreased glomerular filtration rate (GFR) between 30-44 mL/min/1.73 square meter and albuminuria creatinine ratio less than 30 mg/g Chronic kidney disease (CKD) stage G4/A3, severely decreased glomerular filtration rate (GFR) between 15-29 mL/min/1.73 square meter and albuminuria creatinine ratio greater than 300 mg/g CVA, old, ataxia Onset Date: 05/02/16 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 left cerebellar Diabetic peripheral neuropathy associated with type 2 diabetes mellitus Encounter for hepatitis C screening test for low risk patient Essential (primary) hypertension Insomnia Nail fungal infection Onset Date: 03/03/21 all the nails on the feet CINDI on CPAP Proteinuria Family History: Family History (Last Reviewed 06/27/21 @ 00:41 by Leatha Tate RN) Mother Family history of endocrine disorder Family history of diabetes mellitus in first degree relative Family history of coronary artery disease Family history of cardiovascular disease, Onset Age: 81 Sibling Hypertension Family history of diabetes mellitus in first degree relative Father Carcinoma of colon, Onset Age: 75 Patient's father is Family history of malignant neoplasm, Onset Age: 75 - Social History Social History: Social History (Last Reviewed 03/03/21 @ 14:45 by Yadira Del Castillo MA) Gender Identity: Gender identity (if verbalized by the patient): Female Alcohol Use: Alcohol intake: never Substance Use: Substance use: never Substance use type: does not use Others: Spiritual care concerns: No Smoking Status: Smoking status: Current every day smoker Tobacco type: cigarettes Second hand tobacco smoke exposure: No Smoking Pack-years: Smoking packs per day: 1 Smoking cigarettes per day: 20.0 Years smoked: 50 Smoking pack-years: 50.00 Meds Home Medications Medication Instructions Recorded Confirmed Type aspirin 81 mg tablet,delayed 81 mg PO DAILY 07/30/19 06/27/21 History release ondansetron HCl 4 mg PO Q8H PRN #10 tablet 06/15/20 06/27/21 Rx lisinopril 30 mg tablet 30 mg PO DAILY #90 tablet 01/20/21 06/27/21 Rx pravastatin 40 mg tablet 40 mg PO DAILY #90 tablet 02/02/21 06/27/21 Rx fenofibrate 150 mg capsule 150 mg PO DAILY #90 cap 02/17/21 06/27/21 Rx allopurinol 100 mg tablet 200 mg PO DAILY #60 tablet
[2021-06-29] MEDS: PANTOPRAZOLE 40 MG TABLET PO (21:04)
[2021-06-29] MEDS: traZODone HCL 50 MG TABLET PO (21:04)
[2021-06-29 22:39] LABS: Glucose Point of Care 155 mg/dl (65-105)
[2021-06-29] MEDS: CYCLOBENZAPRINE HCL 10 MG TABLET PO (23:49)
[2021-06-30] VITALS (7 sets, daily range): BP systolic 150; BP diastolic 63–64; PULSE 55–73; RESP 14–17; TEMP 36.8; O2SAT 98–100
[2021-06-30 06:23] LABS: Basophils Percent Auto 0.6 % (0.2-1.2); Eosinophils Absolute Auto 0.2 K/mm3 (0-0.3); Eosinophils Percent Auto 2.3 % (0-4.4); Hematocrit 25.7 % (37.0-47.0); Hemoglobin 7.9 g/dL (12.0-15.0); Immature Granulocyte Absolute 0.04 K/mm3 (0.00-0.031); Immature Granulocyte Percent A 0.6 % (0-0.5); Lymphocytes Absolute Auto 0.74 K/mm3 (0.9-3.2); Lymphocytes Percent Auto 10.2 % (18.3-44.2); Mean Corpuscular HGB Conc 30.7 g/dl (32-36); Mean Corpuscular Hemoglobin 31.9 pg (26-34); Mean Corpuscular Volume 103.6 fl (80-100); Monocytes Absolute Auto 0.5 K/mm3 (0.1-0.6); Monocytes Percent Auto 7.5 % (2.6-8.5); Neutrophils Absolute Auto 5.7 K/mm3 (1.3-6.7); Neutrophils Percent Auto 78.8 % (45.5-73.1); Platelet Count Result 246 k/mm3 (150-375); Red Blood Count 2.48 M/mm3 (4.2-5.4); Red Cell Distribution Width 19.1 % (11.5-14.5); White Blood Count 7.2 K/mm3 (4.5-10.0)
[2021-06-30 06:29] LABS: Hemoglobin A1C 4.9 % (<5.7)
[2021-06-30 06:38] LABS: Alanine Aminotransferase 33 U/L (4-35); Albumin Level 3.4 g/dL (3.5-5.1); Alkaline Phosphatase 55 U/L (38-126); Anion Gap 6 mmol/L (8-16); Aspartate Amino Transferase 46 U/L (14-36); Bilirubin,Total 0.3 mg/dL (0.2-1.3); Blood Urea Nitrogen 24 mg/dL (7-17); Calcium 9.8 mg/dL (8.4-10.2); Carbon Dioxide 22 mmol/L (22-30); Chloride 108 mmol/L (98-107); Estimated CRCL calculation 33 ml/min; Estimated Glomerular Filt Rate 34; Glucose 85 mg/dL (65-110); Potassium 3.7 mmol/L (3.4-5.0); Sodium 136 mmol/L (137-145)
[2021-06-30 06:49] LABS: Glucose Point of Care 85 mg/dl (65-105)
[2021-06-30] MEDS: PANTOPRAZOLE 40 MG TABLET PO (08:27)
[2021-06-30] MEDS: amLODIPine BESYLATE 5 MG TABLET 10 MG PO (08:27)
[2021-06-30] MEDS: allopurinoL 100 MG TABLET 200 MG PO (08:27)
[2021-06-30] MEDS: LIDOCAINE 5% PATCH 3 PATCH TRANSDERM (08:28)
[2021-06-30] MEDS: IRON SUCROSE COMPLEX 200 MG in SODIUM CHLORIDE 0.9% IV 50 ML 120 MG IVPB (08:28)
--- NOTE | 2021-06-30 09:03 | PM.PNNEP ---
Progress Note: A&P Assessment and Plan (1) Chronic kidney disease, stage IV (severe): Code(s): N18.4 - Chronic kidney disease, stage 4 (severe) Status: Chronic Assessment and Plan: baseline creatinine runs around 1.5 - 1.8mg/dl in the last couple of years felt to be secondary to diabetes, hypertension, vascular disease, smoking, and age complicated by nephrotic range proteinuria (I have discussed renal biopsy in the past but patient has been reluctant to comply) Creatinine is stable at 1.5. (2) Severe anemia: Onset Date: ~06/26/21 Code(s): D64.9 - Anemia, unspecified Status: Acute Assessment and Plan: quite significant on admission s/p PRBC transfusion on Epogen and IV iron as well Colonoscopy showed internal hemorrhoids and colon polyps. A Dieulafoy's lesion was found with some oozing of blood. follow trend of H/H (3) Essential (primary) hypertension: Code(s): I10 - Essential (primary) hypertension Status: Acute Assessment and Plan: reasonable control at this time follow trend on BP medications (4) Diabetes: Code(s): E11.9 - Type 2 diabetes mellitus without complications Status: Chronic Assessment and Plan: on Accu-Cheks and sliding-scale insulin (5) Shortness of breath: Code(s): R06.02 - Shortness of breath Status: Acute Assessment and Plan: The patient is much less short of breath now. Admission chest x-ray showed mild pulmonary vascular congestion. Will repeat this today. She says she was on Lasix once a day at home. Consider restarting this. Subjective Date/time seen: 06/30/21 09:03 Interval history: the patient is feeling better today. She is not as shortness breath as she was on admission Resting comfortably in bed. Exam Narrative: General: WD/WN male/female in NAD Heart: normal S1 and S2; no rub or gallop Lungs: Rare crackles at the bases that clear with a cough. Abdomen: soft, nontender, nondistended, positive bowel sounds Extremities: no edema Skin: no rash Objective Data Vital Signs Vital Signs: Vital Signs - 24 hr 06/29/21 12:00 06/29/21 14:23 06/29/21 16:37 Temperature 36.4 C L Pulse Rate 66 70 66 Respiratory Rate 18 20 Blood Pressure 162/53 H 135/46 L Pulse Oximetry 96 95 06/29/21 16:47 06/29/21 16:57 06/29/21 17:30 Temperature 36.4 C L Pulse Rate 78 61 89 Respiratory Rate 21 H 17 16 Blood Pressure 149/93 H 143/54 H 172/67 H Pulse Oximetry 95 98 100 06/29/21 20:00 06/29/21 22:00 06/30/21 00:00 Temperature 36.4 C Pulse Rate 71 71 64 Respiratory Rate 16 16 Blood Pressure 149/53 H Pulse Oximetry 98 98 06/30/21 04:00 06/30/21 06:00 Temperature 36.8 C Pulse Rate 67 55 L Respiratory Rate 14 Blood Pressure 150/63 H Pulse Oximetry 98 Intake/Output Intake/Output: Intake & Output 06/27/21 06/28/21 06/29/21 06/30/21 23:59 23:59 23:59 23:59 Intake Total 5480 4140 780 760 Output Total 3600 3100 600 3 Balance 1880 1040 180 757 Meds/Results Medications: Active Medications Generic Name Dose Route Start Last Admin Trade Name Freq PRN Reason Stop Dose Admin Acetaminophen 650 mg 06/26/21 22:38 06/27/21 04:11 Acetaminophen 325 Mg Tablet PO 650 mg Q4H PRN Administration Mild Pain (1-3) or Fever Hydrocodone Bitart/Acetaminophen 1 tab 06/28/21 13:27 06/29/21 09:25 Hydrocodone/Acetaminophen (*Crx) 7.5-325 Mg Tablet PO 1 tab Q6H PRN Administration Pain Rated 7-10 Hydrocodone Bitart/Acetaminophen 1 tab 06/28/21 13:30 Hydrocodone/Acetaminophen (*Crx) 5-325 Mg Tablet PO Q6H PRN Pain Rated 4-6 Allopurinol 200 mg 06/27/21 08:00 06/30/21 08:27 Allopurinol 100 Mg Tablet PO 200 mg DAILY@0800 KARIME Administration Amlodipine Besylate 10 mg 06/27/21 09:00 06/30/21 08:27 Amlodipine Besylate 5 Mg Tablet PO 10 mg DAILY KARIME Administration Cyclobenz
--- NOTE | 2021-06-30 10:23 | WPDANESPN ---
Anes - Prog Note Post-Op Date/Time: 06/30/21 10:23 Cardiovascular status: normal Respiratory status: normal Airway patency: baseline Mental status: baseline Post-Op hydration status: normal Vital Signs: Last Vital Signs Temp 36.8 C 06/30/21 06:00 Pulse 55 L 06/30/21 06:00 Resp 14 06/30/21 06:00 BP 150/63 H 06/30/21 06:00 Pulse Ox 98 06/30/21 06:00 Pain Score (VAS): 2 I/O: Intake & Output 06/29/21 06/30/21 06/30/21 23:59 07:59 15:59 Intake Total 680 400 420 Output Total 3 Balance 680 397 420 Laboratory Tests 06/30/21 05:57 06/30/21 05:57 06/29/21 06/29/21 06/29/21 11:52 14:16 17:08 WBC RBC Hgb Hct MCV MCH MCHC RDW Plt Count MPV Immature Gran % (Auto) Neut % (Auto) Lymph % (Auto) [place] % (Auto) Eos % (Auto) Baso % (Auto) Lymph # (Auto) [place] # (Auto) Eos # (Auto) Baso # (Auto) Abs Immat Gran (auto) Absolute Neuts (auto) Absolute Nucleated RBC Nucleated RBC % Sodium Potassium Chloride Carbon Dioxide Anion Gap BUN Creatinine Estim Creat Clear Calc Estimated GFR Glucose POC Capillary Glucose 97 94 92 Hemoglobin A1c Calcium Total Bilirubin AST ALT Alkaline Phosphatase Total Protein Albumin 06/29/21 06/30/21 06/30/21 20:59 05:57 05:57 WBC 7.2 RBC 2.48 L Hgb 7.9 L Hct 25.7 L MCV 103.6 H D MCH 31.9 MCHC 30.7 L RDW 19.1 H Plt Count 246 MPV 10.0 Immature Gran % (Auto) 0.6 H Neut % (Auto) 78.8 H Lymph % (Auto) 10.2 L [place] % (Auto) 7.5 Eos % (Auto) 2.3 Baso % (Auto) 0.6 Lymph # (Auto) 0.74 L [place] # (Auto) 0.5 Eos # (Auto) 0.2 Baso # (Auto) 0.0 Abs Immat Gran (auto) 0.04 H Absolute Neuts (auto) 5.7 Absolute Nucleated RBC 0.0 Nucleated RBC % 0.0 Sodium 136 L Potassium 3.7 Chloride 108 H Carbon Dioxide 22 Anion Gap 6 L BUN 24 H Creatinine 1.50 H Estim Creat Clear Calc 33 Estimated GFR 34 L Glucose 85 POC Capillary Glucose 155 H Hemoglobin A1c Calcium 9.8 Total Bilirubin 0.3 AST 46 H ALT 33 Alkaline Phosphatase 55 Total Protein 6.0 L Albumin 3.4 L 06/30/21 06/30/21 05:57 06:28 WBC RBC Hgb Hct MCV MCH MCHC RDW Plt Count MPV Immature Gran % (Auto) Neut % (Auto) Lymph % (Auto) [place] % (Auto) Eos % (Auto) Baso % (Auto) Lymph # (Auto) [place] # (Auto) Eos # (Auto) Baso # (Auto) Abs Immat Gran (auto) Absolute Neuts (auto) Absolute Nucleated RBC Nucleated RBC % Sodium Potassium Chloride Carbon Dioxide Anion Gap BUN Creatinine Estim Creat Clear Calc Estimated GFR Glucose POC Capillary Glucose 85 Hemoglobin A1c 4.9 Calcium Total Bilirubin AST ALT Alkaline Phosphatase Total Protein Albumin Post-procedural complaints: none Patient Feedback: Patient satisfied with anesthetic care.
--- NOTE | 2021-06-30 11:54 | PC.NURSE ---
On 06/30/21, the student, Ailyn Mak, provided care and completed [facility] documentation on this patient. I have reviewed the student's documentation and agree with the findings.
[2021-06-30 11:59] LABS: Glucose Point of Care 156 mg/dl (65-105)
[2021-06-30 12:34] LABS: Hematocrit 26.1 % (37.0-47.0); Hemoglobin 8.4 g/dL (12.0-15.0)
--- NOTE | 2021-06-30 13:00 | WPDGIPROGNO ---
Progress Note: A&P Assessment and Plan (1) Dieulafoy lesion of stomach: Code(s): K31.82 - Dieulafoy lesion (hemorrhagic) of stomach and duodenum Status: Acute Assessment and Plan: treated yesterday endoscopically, probably explain the acute drop in hemoglobin no more signs of bleeding continue with ppi daily (2) Acute blood loss anemia: Code(s): D62 - Acute posthemorrhagic anemia Status: Acute Assessment and Plan: hb low but stable since transfusion hematology on board (3) Chronic kidney disease, stage IV (severe): Code(s): N18.4 - Chronic kidney disease, stage 4 (severe) Status: Chronic Assessment and Plan: by nephrology (4) Proteinuria: Code(s): R80.9 - Proteinuria, unspecified Status: Acute (5) Type 2 diabetes mellitus without complication, with long-term current use of insulin: Code(s): E11.9 - Type 2 diabetes mellitus without complications; Z79.4 - terminal manager (current) use of insulin Status: Acute (6) Adenomatous colon polyp: Code(s): D12.6 - Benign neoplasm of colon, unspecified Status: Acute Assessment and Plan: colonoscopy with small polyps removed, no signs of lower gib next screening colonoscopy in 5 years Subjective Date/time seen: 06/30/21 13:00 Interval history: doing well, tolerating diet, no melena. Review of Systems Review of Systems: All systems reviewed & are unremarkable except as noted in HPI and below Exam Const: General: comfortable and no acute distress HENMT: General nose exam: Normal nares present Eyes: General: appearance normal, both eyes and all related structures Neck: Neck: no JVD Resp: Auscultation: clear to auscultation bilaterally Cardio: Rate: regular rate Rhythm: regular rhythm GI: Inspection: non-distended GI Palp: Yes Soft to palpation Skin: General skin exam: normal color Neuro: General: gait normal Speech: normal speech Extrem: General: normal to inspection Psych: Mental Status: mental status grossly normal Objective Data Vital Signs Vital Signs: Vital Signs - 24 hr 06/29/21 14:23 06/29/21 16:37 06/29/21 16:47 Temperature 97.5 F L Pulse Rate 70 66 78 Respiratory Rate 18 20 21 H Blood Pressure 162/53 H 135/46 L 149/93 H Pulse Oximetry 96 95 95 06/29/21 16:57 06/29/21 17:30 06/29/21 20:00 Temperature 97.5 F L Pulse Rate 61 89 71 Respiratory Rate 17 16 16 Blood Pressure 143/54 H 172/67 H Pulse Oximetry 98 100 98 06/29/21 22:00 06/30/21 00:00 06/30/21 04:00 Temperature 97.6 F Pulse Rate 71 64 67 Respiratory Rate 16 Blood Pressure 149/53 H Pulse Oximetry 98 06/30/21 06:00 06/30/21 08:00 Temperature 98.3 F Pulse Rate 55 L 72 Respiratory Rate 14 Blood Pressure 150/63 H Pulse Oximetry 98 Intake/Output Intake/Output: Intake & Output 06/27/21 06/28/21 06/29/21 06/30/21 23:59 23:59 23:59 23:59 Intake Total 5480 4140 780 1180 Output Total 3600 3100 600 3 Balance 1880 7422 004 7409 Meds/Results Medications: Active Medications Generic Name Dose Route Start Last Admin Trade Name Freq PRN Reason Stop Dose Admin Acetaminophen 650 mg 06/26/21 22:38 06/27/21 04:11 Acetaminophen 325 Mg Tablet PO 650 mg Q4H PRN Administration Mild Pain (1-3) or Fever Hydrocodone Bitart/Acetaminophen 1 tab 06/28/21 13:27 06/29/21 09:25 Hydrocodone/Acetaminophen (*Crx) 7.5-325 Mg Tablet PO 1 tab Q6H PRN Administration Pain Rated 7-10 Hydrocodone Bitart/Acetaminophen 1 tab 06/28/21 13:30 Hydrocodone/Acetaminophen (*Crx) 5-325 Mg Tablet PO Q6H PRN Pain Rated 4-6 Allopurinol 200 mg 06/27/21 08:00 06/30/21 08:27 Allopurinol 100 Mg Tablet PO 200 mg DAILY@0800 KARIME Administration Amlodipine Besylate 10 mg 06/27/21 09:00 06/30/21 08:27 Amlodipine Besylate 5 Mg Tablet PO 10 mg DAILY KARIME Administration Cyclobenzaprine HCl 10 mg 06/27/21 03:03 06/29/21 23:
--- NOTE | 2021-06-30 15:16 | P.DS_ITS ---
DS: Admitting Diagnosis Discharge Date 06/30/2021 Admitting Diagnosis Anemia DS: Discharge Diagnosis Discharge Diagnosis (1) Severe anemia: Onset Date: ~06/26/21 Code(s): D64.9 - Anemia, unspecified Status: Acute Assessment and Plan: Presented with ongoing weakness and found to have hemoglobin 5.8. Hemoglobin 1 year ago was within normal limits. * She received 2 units pRBC on 06/27/2021. H&H stabilized following transfusion. * [place] to be multifactorial related to iron deficiency and chronic kidney disease. * She is on chronic anticoagulation but did not have any evidence of bleeding prior to or during admission * She was seen in consultation by Gastroenterology. Underwent EGD which showed Dieulafoy lesion of stomach which was felt to be the source for acute drop in hemoglobin. This was treated endoscopically. Continue Protonix BID * Also seen in consultation by Nephrology. Started on Epogen * Seen in consultation by Hematology. She will continue to follow for regular Epogen injections * Iron panel showed iron deficiency. She received IV iron infusions and will continue with p.o. ferrous sulfate 325 b.i.d. * Home Xarelto and aspirin held during admission. Continue to hold for 1 week per GI recommendations. Resume on 07/07/2021. * Repeat H&H 1 week to ensure remaining stable . (2) Chronic kidney disease (CKD) stage G4/A3, severely decreased glomerular filtration rate (GFR) between 15-29 mL/min/1.73 square meter and albuminuria creatinine ratio greater than 300 mg/g: Code(s): N18.4 - Chronic kidney disease, stage 4 (severe) Status: Acute Assessment and Plan: Baseline creatinine noted to be 1.5-1.8 * Seen in consultation by nephrology * Renal function remained consistent with baseline * Proteinuria noted; nephrology aware and monitoring * Continue with outpatient Nephrology follow-up (3) Chronic atrial fibrillation: Code(s): I48.20 - Chronic atrial fibrillation, unspecified Status: Acute Assessment and Plan: Rate was well controlled * Home xarelto on hold for 1 week as above * Continue carvedilol (4) Tobacco use disorder, continuous: Code(s): F17.209 - Nicotine dependence, unspecified, with unspecified nicotine-induced disorders Status: Acute Assessment and Plan: History of smoking 1 pack per day for 50 years * She declined need for nicotine patch during this admission * She was educated on smoking cessation and verbalized understanding (5) Diabetes: Code(s): E11.9 - Type 2 diabetes mellitus without complications Status: Chronic Assessment and Plan: A1c was 4.9. May be falsely decreased due to blood loss anemia, however previous A1c one year ago was 6.7. Blood sugars were well controlled during her hospital stay. She reports episodes of low blood sugars at home in which she is symptomatic with shakiness. * Monitored with Accu-Cheks, sliding scale insulin, hypoglycemic protocol during hospital admission * Mealtime insulin (NovoLog 20 units t.i.d.) was discontinued * Levemir decreased to 10 units daily. Instructed to take in the a.m. to avoid nighttime hypoglycemia * Encouraged to monitor blood sugars ACHS on home and follow-up with PCP for further monitoring and medication adjustment (6) CINDI on CPAP: Code(s): G47.33 - Obstructive sleep apnea (adult) (pediatric); Z99.89 - Dependence on other enabling machines and devices Status: Acute Assessment and Plan: Continue home CPAP
--- NOTE | 2021-06-30 15:16 | PM.DS ---
DS: Admitting Diagnosis Discharge Date 06/30/2021 Admitting Diagnosis Anemia DS: Discharge Diagnosis Discharge Diagnosis (1) Severe anemia: Onset Date: ~06/26/21 Code(s): D64.9 - Anemia, unspecified Status: Acute Assessment and Plan: Presented with ongoing weakness and found to have hemoglobin 5.8. Hemoglobin 1 year ago was within normal limits. She received 2 units pRBC on 06/27/2021. H&H stabilized following transfusion. [place] to be multifactorial related to iron deficiency and chronic kidney disease. She is on chronic anticoagulation but did not have any evidence of bleeding prior to or during admission She was seen in consultation by Gastroenterology. Underwent EGD which showed Dieulafoy lesion of stomach which was felt to be the source for acute drop in hemoglobin. This was treated endoscopically. Continue Protonix BID Also seen in consultation by Nephrology. Started on Epogen Seen in consultation by Hematology. She will continue to follow for regular Epogen injections Iron panel showed iron deficiency. She received IV iron infusions and will continue with p.o. ferrous sulfate 325 b.i.d. Home Xarelto and aspirin held during admission. Continue to hold for 1 week per GI recommendations. Resume on 07/07/2021. Repeat H&H 1 week to ensure remaining stable . (2) Chronic kidney disease (CKD) stage G4/A3, severely decreased glomerular filtration rate (GFR) between 15-29 mL/min/1.73 square meter and albuminuria creatinine ratio greater than 300 mg/g: Code(s): N18.4 - Chronic kidney disease, stage 4 (severe) Status: Acute Assessment and Plan: Baseline creatinine noted to be 1.5-1.8 Seen in consultation by nephrology Renal function remained consistent with baseline Proteinuria noted; nephrology aware and monitoring Continue with outpatient Nephrology follow-up (3) Chronic atrial fibrillation: Code(s): I48.20 - Chronic atrial fibrillation, unspecified Status: Acute Assessment and Plan: Rate was well controlled Home xarelto on hold for 1 week as above Continue carvedilol (4) Tobacco use disorder, continuous: Code(s): F17.209 - Nicotine dependence, unspecified, with unspecified nicotine-induced disorders Status: Acute Assessment and Plan: History of smoking 1 pack per day for 50 years She declined need for nicotine patch during this admission She was educated on smoking cessation and verbalized understanding (5) Diabetes: Code(s): E11.9 - Type 2 diabetes mellitus without complications Status: Chronic Assessment and Plan: A1c was 4.9. May be falsely decreased due to blood loss anemia, however previous A1c one year ago was 6.7. Blood sugars were well controlled during her hospital stay. She reports episodes of low blood sugars at home in which she is symptomatic with shakiness. Monitored with Accu-Cheks, sliding scale insulin, hypoglycemic protocol during hospital admission Mealtime insulin (NovoLog 20 units t.i.d.) was discontinued Levemir decreased to 10 units daily. Instructed to take in the a.m. to avoid nighttime hypoglycemia Encouraged to monitor blood sugars ACHS on home and follow-up with PCP for further monitoring and medication adjustment (6) CINDI on CPAP: Code(s): G47.33 - Obstructive sleep apnea (adult) (pediatric); Z99.89 - Dependence on other enabling machines and devices Status: Acute Assessment and Plan: Continue home CPAP (7) Urinary tract infection: Code(s): N39.0 - Urinary tract infection, site not specified Status: Acute Assessment and Plan: Ruled out. Started on IV Rocephin that was discontinued Denied urinary symptoms Urine culture negative (8) Dieulafoy lesion of stomach: Code(s): K31.82 - Dieulafoy lesion (hemorrhagic) of stomach and duodenum Status: Acute Assessment and Plan: Evident on
[2021-06-30 16:23] LABS: Glucose Point of Care 108 mg/dl (65-105)
[2021-07-02 15:21] LABS: Red Blood Cell Folate >1000 ng/mL RBC (>280)
== END 2021-06-30 17:30 | disposition home or self-care (01) | DRG 689 ==
LOC: ANHED 23:22 → ANH2MED 06-27 00:44
PROVIDERS: Internal Medicine Gastroenterology; Internal Medicine Hematology & Oncology; Nurse Practitioner; Admitting Provider Internal Medicine; Emergency Provider Emergency Medicine; PCP Family Medicine; Visit Provider Physician Assistant
PROC: 0DJ08ZZ Inspection of Upper Intestinal Tract, Via Natural or Artificial Opening Endoscopic (ICD-10-PCS; CPT 43235; principal; 2021-06-29 14:30)
DX: N39.0 Urinary tract infection, site not specified (principal); K31.82 Dieulafoy lesion (hemorrhagic) of stomach and duodenum; N18.4 Chronic kidney disease, stage 4 (severe); I48.20 Chronic atrial fibrillation, unspecified; I48.91 Unspecified atrial fibrillation; F41.9 Anxiety disorder, unspecified; I69.393 Ataxia following cerebral infarction; E11.42 Type 2 diabetes mellitus with diabetic polyneuropathy; E11.22 Type 2 diabetes mellitus with diabetic chronic kidney disease; I12.9 Hypertensive chronic kidney disease with stage 1 through stage 4 chronic kidney disease, or unspecified chronic kidney disease; G47.00 Insomnia, unspecified; G47.33 Obstructive sleep apnea (adult) (pediatric); F17.210 Nicotine dependence, cigarettes, uncomplicated; Z79.82 Long term (current) use of aspirin; Z79.4 Long term (current) use of insulin; J43.9 Emphysema, unspecified; Z95.0 Presence of cardiac pacemaker; E78.5 Hyperlipidemia, unspecified; H81.13 Benign paroxysmal vertigo, bilateral; M15.9 Polyosteoarthritis, unspecified; R29.6 Repeated falls; G89.29 Other chronic pain; M54.50 Low back pain, unspecified; M25.559 Pain in unspecified hip; D50.9 Iron deficiency anemia, unspecified; D63.1 Anemia in chronic kidney disease; K63.5 Polyp of colon; K64.8 Other hemorrhoids
CPT/HCPCS: 36415; 36430; 71046; 80053; 81001; 82607; 82728; 82747; 82948; 83036; 83540; 83550; 83615; 85014; 85018; 85025; 85046; 85610; 85730; 86850; 86900; 86901; 86920; 87086; 88305; 93005; 96365; 97161; 97165; 99285; A9270; C9113; J0696; J1756; J2405; J7030; J7050; J7120; P9016; Q5105

== ENCOUNTER 2021-08-11 11:27 | Observation (INO) | payer MEDICARE, SELFPAY ==
[2021-08-11] VITALS (8 sets, daily range): BP systolic 108–141; BP diastolic 47–70; PULSE 60–68; RESP 14–20; TEMP 36.1–36.7; O2SAT 93–100; BMI 29.0
--- NOTE | 2021-08-11 15:52 | ED.RECABL ---
HPI - Recheck/Abnormal Lab/Rx General Chief Complaint: Recheck/Abnormal Lab/Rx Stated Complaint: ABN LABS, [facility] Time Seen by Provider: 08/11/21 15:50 Source: patient Mode of arrival: ambulatory Limitations: no limitations History of Present Illness HPI narrative: 71-year-old female Here because of anemia Related Data Home Medications Medication Instructions Recorded Confirmed aspirin 81 mg tablet,delayed 81 mg PO DAILY 07/30/19 08/11/21 release Xarelto 20 mg PO DAILY 06/29/21 08/11/21 Allergies Allergy/AdvReac Type Severity Reaction Status Date / Time Sulfa (Sulfonamide Allergy Unknown Unknown Verified 08/11/21 15:50 Antibiotics) sulfanilamide Allergy Unknown Unknown Verified 08/11/21 15:50 [facility] Past Medical History Medical History (Updated 08/03/21 @ 07:53 by Rolando Walker MD) Acute blood loss anemia Acute on chronic kidney failure Adenomatous colon polyp Colonoscopy on 06/29/2021 with 2 polyps of the transverse colon with no bleeding and recheck in 5 years. 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 Diabetes Diabetic peripheral neuropathy associated with type 2 diabetes mellitus Dieulafoy lesion of stomach (06/29/21) EGD on 06/29/2021 reveals oozing lesion cauterized Encounter for hepatitis C screening test for low risk patient (07/31/21) hepatitis C screening was negative on 07/31/2021 Essential (primary) hypertension Insomnia Nail fungal infection (03/03/21) all the nails on the feet CINDI on CPAP Proteinuria Shortness of breath Urinary tract infection Family History Family History Mother Family history of endocrine disorder Family history of diabetes mellitus in first degree relative Family history of coronary artery disease Family history of cardiovascular disease, Onset Age: 81 Sibling Hypertension Family history of diabetes mellitus in first degree relative Father Carcinoma of colon, Onset Age: 75 Patient's father is Family history of malignant neoplasm, Onset Age: 75 Social History Social History Smoking packs per day: 1 Smoking cigarettes per day: 20.0 Years smoked: 50 Smoking pack-years: 50.00 Smoking status: Current every day smoker Tobacco type: cigarettes Second hand tobacco smoke exposure: No Alcohol intake: never Substance use: never Substance use type: does not use Gender identity (if verbalized by the patient): Female Spiritual care concerns: No Course Vital Signs Vital signs: Vital Signs Temperature 36.1 C L 08/11/21 11:34 Pulse Rate 61 08/11/21 11:34 Respiratory Rate 20 08/11/21 11:34 Blood Pressure 138/54 L 08/11/21 11:34 Pulse Oximetry 100 08/11/21 11:34 Temperature 36.4 C L 08/11/21 13:42 Pulse Rate 68 08/11/21 15:46 Respiratory Rate 14 08/11/21 15:46 Blood Pressure 108/47 L 08/11/21 15:46 Pulse Oximetry 100 08/11/21 15:46 Discharge Plan Discharge Prescriptions: No Action trazodone 50 mg tablet 50 mg PO QHS Qty: 30 RF: 11 Hold Instructions: fatigue cyclobenzaprine 10 mg tablet 10 mg PO TID PRN (Reason: muscle spasm) Qty: 90 RF: 11 Hold Instructions: expensive ondansetron HCl 4 mg tablet 4 mg PO Q8H PRN (Reason: nausea and vomiting) Qty: 10 RF: 0 Xarelto 20 mg tablet 20 mg PO DAILY
--- NOTE | 2021-08-11 16:23 | ED.RECABL ---
HPI - Recheck/Abnormal Lab/Rx General Chief Complaint: Recheck/Abnormal Lab/Rx Stated Complaint: ABN LABS, [facility] Time Seen by Provider: 08/11/21 15:50 Source: patient Mode of arrival: ambulatory Limitations: no limitations History of Present Illness HPI narrative: 71-year-old female Here because of fatigue, and low hemoglobin Patient states she has a history of anemia and that she was a patient here a month or 2 ago with a hemoglobin of 5 at that time She believes that it was due to a problem with a vessel of some sort Indeed on review of her chart it looks like she got scoped and had a dieulafoy lesion in her stomach She has been followed up by hematology in infusion clinic and today was there and had a hemoglobin of 6 She does note that she is very fatigued and tired and has no energy She is taking Xarelto again She has had dark stools intermittently for a couple of months at least Related Data Home Medications Medication Instructions Recorded Confirmed aspirin 81 mg tablet,delayed 81 mg PO DAILY 07/30/19 08/11/21 release Xarelto 20 mg PO DAILY 06/29/21 08/11/21 Allergies Allergy/AdvReac Type Severity Reaction Status Date / Time Sulfa (Sulfonamide Allergy Unknown Unknown Verified 08/11/21 15:50 Antibiotics) sulfanilamide Allergy Unknown Unknown Verified 08/11/21 15:50 Review of Systems Review of Systems: All systems reviewed & are unremarkable except as noted in HPI and below Constitutional: Constitutional: Reports fatigue and Reports weakness Eyes: Eyes: Reports no additional eye complaints and Denies change in vision ENT: Denies headache(s) and Denies sore throat Cardiovascular: Cardiovascular: Denies chest pain and Denies dyspnea Respiratory: Respiratory: Denies cough and Denies dyspnea Gastrointestinal: Gastrointestinal: Denies abdominal pain, Denies diarrhea and Denies vomiting Genitourinary: Genitourinary: Denies urinary frequency and Denies dysuria Musculoskeletal: Musculoskeletal: Denies deformity, Denies arthralgias, Denies joint swelling and Denies numbness Integumentary/Breasts: Skin/Breast: Denies rash and Denies wounds Neurologic: Denies headache(s), Denies focal weakness and Denies numbness Psychiatric: Psychiatric: Reports no additional psychiatric complaints Endocrine: Endocrine: Reports no additional endocrine complaints Hematologic/Lymphatic: Hematologic/Lymphatic: Reports no additional hematologic/lymphatic complaints Allergic/Immunologic: Allergic/Immunologic: Reports no additional allergic/immunologic complaints PMFSH Past Medical History Medical History Acute blood loss anemia Acute on chronic kidney failure Adenomatous colon polyp Colonoscopy on 06/29/2021 with 2 polyps of the transverse colon with no bleeding and recheck in 5 years. 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
[2021-08-11 16:41] LABS: Immature Reticulocyte Fraction 33.7 % (3.0-15.9); Reticulocyte Hemoglobin Conten 27.8 pg (28.2-35.7); Reticulocyte Percent 5.41 % (0.7-4.3)
[2021-08-11 16:54] LABS: Alanine Aminotransferase 20 U/L (4-35); Albumin Level 3.5 g/dL (3.5-5.1); Alkaline Phosphatase 46 U/L (38-126); Anion Gap 7 mmol/L (8-16); Aspartate Amino Transferase 36 U/L (14-36); Bilirubin,Total 0.3 mg/dL (0.2-1.3); Blood Urea Nitrogen 58 mg/dL (7-17); Calcium 9.6 mg/dL (8.4-10.2); Carbon Dioxide 21 mmol/L (22-30); Chloride 104 mmol/L (98-107); Estimated CRCL calculation 24 ml/min; Estimated Glomerular Filt Rate 23; Glucose 135 mg/dL (65-110); Potassium 3.8 mmol/L (3.4-5.0); Sodium 132 mmol/L (137-145)
[2021-08-11 17:00] LABS: Iron 22 ug/dL (37-170)
[2021-08-11 17:10] LABS: Percent Iron Saturation 5 % (20-50)
[2021-08-11 17:46] LABS: Vitamin B12 > 1000.0 pg/mL (239-931)
--- NOTE | 2021-08-11 19:07 | PC.NURSE ---
report to NICOLE mcadams she assumed care of pt. at this time
[2021-08-11] MEDS: LACTATED RINGERS 1,000 ML 80 ML IV CONT (20:24)
--- NOTE | 2021-08-11 20:37 | PM.IMHP ---
H&P: HPI History of Present Illness Date/Time: 08/11/21 20:37 Chief Complaint: Anemia Narrative: 71-year-old female with a past medical history of paroxysmal atrial fibrillation on chronic anticoagulation, CHF, chronic tobacco abuse and recent upper GI bleed who presented to the ER with recurrent anemia. The patient was hospitalized 06/26/2021 through 06/30/2021 due to GI bleed. She had any EGD and colonoscopy which demonstrated Dieulafoy lesion and 2 benign colon polyps. She had Deandre is a hutson of her gastric lesion. One week after discharge she was instructed to restart her Xarelto. Few days after starting her Xarelto she had several days of dark/black stools. However, over the last week she has not had any further black stools. Her hemoglobin 11 10/2020 was 8.9 and dropped today to 6.1. Ever since her last hospitalization she has had dyspnea on exertion that has worsened over the last 2 weeks. She has also had progressive fatigue. she denies any increased lower extremity swelling, orthopnea or paroxysmal nocturnal dyspnea. She has not had any chest pain. She is compliant with her home CPAP. She has not had any cough, congestion, fevers or chills. She has not had any hematuria or changes in urinary frequency. She denies any nausea or vomiting reports a good appetite. Review of Systems Review of Systems: 12 systems were reviewed with pertinent positives and negatives per HPI. Except as documented in the HPI, all other systems were reviewed and are negative. [facility] Past Medical History Medical History (Updated 08/11/21 @ 20:57 by Felicita Sanchez, ) Adenomatous colon polyp Colonoscopy on 06/29/2021 with 2 polyps of the transverse colon with no bleeding and recheck in 5 years. 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 Diabetes Diabetic peripheral neuropathy associated with type 2 diabetes mellitus Diastolic dysfunction Echocardiogram 05/03/2016: EF 65-70%, moderate left atrial enlargement, mild right atrial enlargement, elevated right atrial pressures Dieulafoy lesion of stomach (06/29/21) EGD on 06/29/2021 reveals oozing lesion cauterized Encounter for hepatitis C screening test for low risk patient (07/31/21) hepatitis C screening was negative on 07/31/2021 Essential (primary) hypertension Gout Hyperlipidemia Insomnia Nail fungal infection (03/03/21) all the nails on the feet CINDI on CPAP Polysomnogram 02/2009: Severe obstructive sleep apnea with CPAP 9 Peripheral vascular disease Proteinuria Pulmonary hypertension Mild pulmonary hypertension with RVSP of 43 on echocardiogram 05/03/2016 Shortness of breath Sick sinus syndrome Tobacco use disorder, continuous Urinary tract infection Vitamin B12 deficiency anemia, unspecified Vitamin D deficiency, unspecified Surgical History Surgical History (Updated 08/11/21 @ 23:38 by Felicita Sanchez DO) H/O hysterectomy for benign disease (~1999) History of colonoscopy with polypectomy Two 2017, June 2021 History of esophagogastroduodenoscopy (EGD) (06/29/21) History of lumbar surgery (~1981) History of permanent cardiac pacemaker placement (09/2012) Dr. Prajapati Status post cataract extraction of both eyes with insertion of intraocular lens Status post right foot surgery (~1981) Family History Family History Mother Family history of endocrine disorder Family history of diabetes mellitus in first degree relative Family history of coronary artery disease Family history of cardiovascular disease, Onset Age: 81 Sibling Hypertension Family history of diabetes mellitus in first degree relative Father Carcinoma of colon, Onset Age: 75 Patient's father is Family his
[2021-08-11] MEDS: PANTOPRAZOLE SODIUM IV 40 MG VIAL IV PUSH (22:02)
[2021-08-12] VITALS (14 sets, daily range): BP systolic 123–148; BP diastolic 46–65; PULSE 57–74; RESP 18–22; TEMP 36.2–36.7; O2SAT 92–100
[2021-08-12 01:05] LABS: Glucose Point of Care 153 mg/dl (65-105)
[2021-08-12] MEDS: carvediloL 25 MG TABLET PO ×3 (01:59→21:06)
[2021-08-12] MEDS: traZODone HCL 50 MG TABLET PO ×2 (02:00→21:06)
[2021-08-12] MEDS: SODIUM CHLORIDE 0.9% IV 250 ML 30 ML IV CONT (02:00)
[2021-08-12] MEDS: HYDROcodone/acetaminophen (*CRX) 10-325 MG TABLET 1 TAB PO ×2 (04:21→14:01)
--- NOTE | 2021-08-12 04:40 | ADMGEN ---
This patient, Jaida Chew, was admitted to [facility] Surg Room 323-02. Patient/family oriented to hospital policies and general routines including ID bracelet, bed and alarms, visiting hours, pain management, procedures, bathroom and other care routines, personal items, smoking policy, room service/diet, and visiting hours. Information on how to activate the Rapid Response Team has been discussed. Patient/Family are encouraged to report perceived risks to care and to ask questions if they do not understand what they are told or what they should do.
[2021-08-12 08:09] LABS: Basophils Percent Auto 0.6 % (0.2-1.2); Eosinophils Absolute Auto 0.1 K/mm3 (0-0.3); Eosinophils Percent Auto 2.7 % (0-4.4); Hematocrit 23.3 % (37.0-47.0); Hemoglobin 7.4 g/dL (12.0-15.0); Immature Granulocyte Absolute 0.03 K/mm3 (0.00-0.031); Immature Granulocyte Percent A 0.6 % (0-0.5); Lymphocytes Absolute Auto 0.61 K/mm3 (0.9-3.2); Lymphocytes Percent Auto 11.9 % (18.3-44.2); Mean Corpuscular HGB Conc 31.8 g/dl (32-36); Mean Corpuscular Hemoglobin 30.1 pg (26-34); Mean Corpuscular Volume 94.7 fl (80-100); Mean Platelet Volume 10.4 fl (7.4-10.4); Monocytes Absolute Auto 0.4 K/mm3 (0.1-0.6); Monocytes Percent Auto 8.2 % (2.6-8.5); Neutrophils Absolute Auto 3.9 K/mm3 (1.3-6.7); Platelet Count Result 205 k/mm3 (150-375); Red Blood Count 2.46 M/mm3 (4.2-5.4); Red Cell Distribution Width 19.3 % (11.5-14.5); White Blood Count 5.1 K/mm3 (4.5-10.0)
[2021-08-12 08:14] LABS: Glucose Point of Care 111 mg/dl (65-105)
[2021-08-12 08:21] LABS: Anion Gap 7 mmol/L (8-16); Blood Urea Nitrogen 47 mg/dL (7-17); Calcium 9.6 mg/dL (8.4-10.2); Carbon Dioxide 20 mmol/L (22-30); Chloride 110 mmol/L (98-107); Estimated CRCL calculation 25 ml/min; Estimated Glomerular Filt Rate 26; Glucose 100 mg/dL (65-110); Potassium 3.8 mmol/L (3.4-5.0); Sodium 137 mmol/L (137-145)
[2021-08-12] MEDS: PANTOPRAZOLE SODIUM IV 40 MG VIAL IV PUSH ×2 (08:31→21:07)
[2021-08-12] MEDS: allopurinoL 100 MG TABLET 200 MG PO (08:31)
[2021-08-12] MEDS: PRAVASTATIN SODIUM 20 MG TABLET 40 MG PO (08:32)
[2021-08-12] MEDS: ASPIRIN 81 MG ENTERIC TABLET PO (08:32)
[2021-08-12] MEDS: amLODIPine BESYLATE 5 MG TABLET 10 MG PO (08:33)
[2021-08-12] MEDS: hydroCHLOROthiazide 25 MG TABLET PO (08:34)
[2021-08-12] MEDS: FENOFIBRATE NANOCRYSTALLIZED 145 MG TABLET PO (08:35)
[2021-08-12] MEDS: ACETAMINOPHEN 325 MG TABLET 650 MG PO (08:37)
[2021-08-12 11:20] LABS: Glucose Point of Care 102 mg/dl (65-105)
--- NOTE | 2021-08-12 11:53 | PM.IMPN ---
Progress Note: A&P Assessment and Plan (1) Severe anemia: Code(s): D64.9 - Anemia, unspecified Status: Acute Assessment and Plan: Admission hemoglobin of 6.1 discharge hemoglobin recently was 8.9 Transfuse 2 unit of PRBC hemoglobin up to 7.4 today Recurrent symptomatic anemia likely due to upper GI losses. Recent EGD with Dieulafoy lesions which were cauterized GI has been consulted awaiting GI evaluation. (2) Type 2 diabetes mellitus without complication, with long-term current use of insulin: Code(s): E11.9 - Type 2 diabetes mellitus without complications; Z79.4 - half-way (current) use of insulin Status: Acute Assessment and Plan: Will resume home Levemir after EGD if able to take p.o.. Moderate sliding scale insulin with Accu-Cheks q.6 hours while NPO. Hypoglycemia protocol has been ordered. (3) Tobacco use disorder, continuous: Code(s): F17.209 - Nicotine dependence, unspecified, with unspecified nicotine-induced disorders Status: Acute Assessment and Plan: The patient has cut her tobacco use down to 1/2 pack per day. I encouraged her to continue our efforts to cut down and eventually stopping smoking. (4) Chronic kidney disease (CKD) stage G4/A3, severely decreased glomerular filtration rate (GFR) between 15-29 mL/min/1.73 square meter and albuminuria creatinine ratio greater than 300 mg/g: Code(s): N18.4 - Chronic kidney disease, stage 4 (severe) Status: Acute Assessment and Plan: Creatinine of 2.1 on admission baseline around 1.5 Subjective Date/time seen: 08/12/21 11:53 Interval history: HPI:71-year-old female with a past medical history of paroxysmal atrial fibrillation on chronic anticoagulation, CHF, chronic tobacco abuse and recent upper GI bleed who presented to the ER with recurrent anemia. The patient was hospitalized 06/26/2021 through 06/30/2021 due to GI bleed. She had any EGD and colonoscopy which demonstrated Dieulafoy lesion and 2 benign colon polyps. She had cauterization of her gastric lesion. One week after discharge she was instructed to restart her Xarelto. Few days after starting her Xarelto she had several days of dark/black stools. However, over the last week she has not had any further black stools. Her hemoglobin 11 10/2020 was 8.9 and dropped today to 6.1. Ever since her last hospitalization she has had dyspnea on exertion that has worsened over the last 2 weeks. She has also had progressive fatigue. she denies any increased lower extremity swelling, orthopnea or paroxysmal nocturnal dyspnea. She has not had any chest pain. She is compliant with her home CPAP. She has not had any cough, congestion, fevers or chills. She has not had any hematuria or changes in urinary frequency. She denies any nausea or vomiting reports a good appetite. 08/12/2021 states she feels hungry. Has not had any bowel movement since admission. Denies any abdominal pain or nausea vomiting. Feels weak Review of Systems Review of Systems: All systems reviewed & are unremarkable except as noted in HPI and below (HPI) Exam Narrative: General: No acute distress, well-developed well-nourished HEENT: Marked conjunctival pallor, no scleral icterus, pupils equal and reactive Respiratory: Clear to auscultation bilaterally, no increased work of breathing Cardiovascular: S1-S2, 2+ bilateral radial pedal pulses Gastrointestinal: Soft, nontender, nondistended, positive bowel sounds Skin: Generalized pallor, non jaundice, varicose veins of lower extremities Musculoskeletal: No clubbing, cyanosis or edema Neurological: Alert and oriented, speech is clear, no facial asymmetry, no localizing neurologic deficits noted on limited exam Psychiatric: Appropriate mood and affect, pleasant and cooperative : Deferred Hematologic/lymphatic: No petechiae, no bruising, no anterior cervical or submandibular lymphadenopathy Objective Data Vital Signs
--- NOTE | 2021-08-12 14:33 | PC.NURSE ---
On 08/12/21, the student, Ade Cox, provided care and completed [facility] documentation on this patient. I have reviewed the student's documentation and agree with the findings.
--- NOTE | 2021-08-12 14:44 | WPDGICN ---
Assessment and Plan Assessment and plan (1) Melena: Code(s): K92.1 - Melena Status: Acute Assessment and Plan: few days ago noted dark stools, not longer using ppi most likely recurrent bleeding from Dieulafoy lesion, she also has been using her xarelto egd tomorrow (2) Acute on chronic blood loss anemia: Code(s): D62 - Acute posthemorrhagic anemia Status: Acute Assessment and Plan: received blood transfusion and feeling better now egd in am hold xarelto (3) Dieulafoy lesion of stomach: Onset Date: 06/29/21 Code(s): K31.82 - Dieulafoy lesion (hemorrhagic) of stomach and duodenum Status: Acute Assessment and Plan: will reassess with egd tomorrow (4) Tobacco use disorder, continuous: Code(s): F17.209 - Nicotine dependence, unspecified, with unspecified nicotine-induced disorders Status: Acute (5) CINDI on CPAP: Code(s): G47.33 - Obstructive sleep apnea (adult) (pediatric); Z99.89 - Dependence on other enabling machines and devices Status: Acute Assessment and Plan: stable (6) Proteinuria: Code(s): R80.9 - Proteinuria, unspecified Status: Acute (7) Chronic atrial fibrillation: Code(s): I48.20 - Chronic atrial fibrillation, unspecified Status: Acute (8) Hx of long-term use of blood thinners: Code(s): Z92.29 - Personal history of other drug therapy Status: Acute Assessment and Plan: on hold now (9) Chronic kidney disease (CKD) stage G4/A3, severely decreased glomerular filtration rate (GFR) between 15-29 mL/min/1.73 square meter and albuminuria creatinine ratio greater than 300 mg/g: Code(s): N18.4 - Chronic kidney disease, stage 4 (severe) Status: Acute Assessment and Plan: stable, seeing nephrology GI Consult Note Consult date/time: 08/12/21 14:44 Reason for consult: melena, acute on chronic anemia HPI: Jaida Chew is a 71 year old female who I met during recent hospitalization last month when she was admitted with symptomatic anemia, colonoscopy with TA polyps removed and EGD with active bleeding from Dieulafoy lesion that was treated endoscopically. She has history of chronic kidney disease stage IV and proteinuria in nephrotic range (she is seeing nephrology as outpatient), hypertension, COPD/emphysema, obstructive sleep apnea on CPAP at nighttime, atrial fibrillation still taking xarelto, pacemaker, type 2 diabetes mellitus, dyslipidemia, tobacco dependence smokes 1 pack per day. She came here with progressive dyspnea on exertion that has worsened over the last 2 weeks, also noted dark stools last week and has been feeling more tired. She says that ran out of PPI and she is using xarelto. Her hemoglobin 11 10/2020 was 8.9 and dropped to 6.1, admitted and given 2 units prbc. She is hemodynamically stable. Review of Systems Constitutional: Constitutional: Reports fatigue Eyes: Eyes: Denies blurry vision ENT: Reports Normal hearing present Cardiovascular: Cardiovascular: Denies chest pain Respiratory: Respiratory: Reports dyspnea on exertion Gastrointestinal: Gastrointestinal: Denies abdominal pain and Reports melena Genitourinary: Genitourinary: Denies hematuria Musculoskeletal: Musculoskeletal: Denies neck pain Integumentary/Breasts: Skin/Breast: Denies dry skin Neurologic: Reports system reviewed and no additional complaints, except as documented Psychiatric: Psychiatric: Reports no additional psychiatric complaints [facility] Past Medical History Medical History (Updated 08/12/21 @ 14:51 by Ponce Garcia MD) Acute on chronic blood loss anemia Adenomatous colon polyp Colonoscopy on 06/29/2021 with 2 polyps of the transverse colon with no bleeding and recheck in 5 years. Benign positional vertigo Cerebrovascular small vessel disease Chronic anxiety Chronic atrial fibrillation Chronic bilateral low back pain Chronic kidney disease,
[2021-08-12 22:36] LABS: Glucose Point of Care 146 mg/dl (65-105)
[2021-08-13] VITALS (8 sets, daily range): BP systolic 119–146; BP diastolic 49–89; PULSE 55–82; RESP 18–24; TEMP 36.1–36.8; O2SAT 92–100
[2021-08-13 00:41] LABS: Glucose Point of Care 121 mg/dl (65-105)
[2021-08-13] MEDS: CYCLOBENZAPRINE HCL 10 MG TABLET PO ×2 (04:33→11:30)
[2021-08-13] MEDS: HYDROcodone/acetaminophen (*CRX) 10-325 MG TABLET 1 TAB PO (05:42)
[2021-08-13 06:11] LABS: Glucose Point of Care 117 mg/dl (65-105)
[2021-08-13 06:46] LABS: Basophils Percent Auto 0.5 % (0.2-1.2); Eosinophils Absolute Auto 0.1 K/mm3 (0-0.3); Eosinophils Percent Auto 1.2 % (0-4.4); Hematocrit 25.3 % (37.0-47.0); Hemoglobin 7.9 g/dL (12.0-15.0); Immature Granulocyte Absolute 0.04 K/mm3 (0.00-0.031); Immature Granulocyte Percent A 0.5 % (0-0.5); Lymphocytes Absolute Auto 0.51 K/mm3 (0.9-3.2); Mean Corpuscular HGB Conc 31.2 g/dl (32-36); Mean Platelet Volume 10.5 fl (7.4-10.4); Monocytes Absolute Auto 0.5 K/mm3 (0.1-0.6); Monocytes Percent Auto 5.4 % (2.6-8.5); Neutrophils Absolute Auto 7.4 K/mm3 (1.3-6.7); Neutrophils Percent Auto 86.4 % (45.5-73.1); Platelet Count Result 249 k/mm3 (150-375); Red Blood Count 2.72 M/mm3 (4.2-5.4); Red Cell Distribution Width 19.2 % (11.5-14.5); White Blood Count 8.6 K/mm3 (4.5-10.0)
[2021-08-13 07:08] LABS: Anion Gap 8 mmol/L (8-16); Blood Urea Nitrogen 43 mg/dL (7-17); Calcium 10.3 mg/dL (8.4-10.2); Carbon Dioxide 22 mmol/L (22-30); Chloride 108 mmol/L (98-107); Estimated CRCL calculation 20 ml/min; Estimated Glomerular Filt Rate 21; Glucose 117 mg/dL (65-110); Potassium 4.1 mmol/L (3.4-5.0); Sodium 138 mmol/L (137-145)
[2021-08-13] MEDS: lisinopriL 10 MG TABLET 30 MG PO (09:05)
[2021-08-13] MEDS: carvediloL 25 MG TABLET PO ×2 (09:06→21:38)
[2021-08-13] MEDS: amLODIPine BESYLATE 5 MG TABLET 10 MG PO (09:06)
[2021-08-13] MEDS: PANTOPRAZOLE SODIUM IV 40 MG VIAL IV PUSH (09:06)
--- NOTE | 2021-08-13 11:52 | PC.NURSE ---
patient to GI lab per stretcher
[2021-08-13] MEDS: LACTATED RINGERS 1,000 ML 150 ML IV CONT (12:05)
[2021-08-13 12:15] LABS: Glucose Point of Care 98 mg/dl (65-105)
--- NOTE | 2021-08-13 12:20 | WPDANESEPPF ---
Anes - Initial Pre Proc Eval Procedure: Operation Date: 08/13/21 12:00 Proposed Procedures p Esophagogastroduodenoscopy - Ponce Garcia MD Date/Time: 08/13/21 12:20 Surgeon: Kye Cortes MD Pre Op Diagnosis: Severe Anemia Patient Data Age: 71 Gender: F Height: 1.6 m Weight: 74.3 kg Last Vital Signs Temp 36.8 C 08/13/21 11:56 Pulse 55 L 08/13/21 11:56 Resp 18 08/13/21 11:56 BP 136/73 08/13/21 11:56 Pulse Ox 98 08/13/21 11:56 Allergies Allergy/AdvReac Type Severity Reaction Status Date / Time Sulfa (Sulfonamide Allergy Unknown Unknown Verified 08/11/21 15:50 Antibiotics) sulfanilamide Allergy Unknown Unknown Verified 08/11/21 15:50 Home Medications Medication Instructions Recorded Confirmed Type aspirin 81 mg tablet,delayed 81 mg PO DAILY 07/30/19 08/11/21 History release ondansetron HCl 4 mg PO Q8H PRN #10 tablet 06/15/20 08/11/21 Rx lisinopril 30 mg tablet 30 mg PO DAILY #90 tablet 01/20/21 08/11/21 Rx pravastatin 40 mg tablet 40 mg PO DAILY #90 tablet 02/02/21 08/11/21 Rx fenofibrate 150 mg capsule 150 mg PO DAILY #90 cap 02/17/21 08/11/21 Rx allopurinol 100 mg tablet 200 mg PO DAILY #60 tablet 03/02/21 08/11/21 Rx cyclobenzaprine 10 mg tablet 10 mg PO TID PRN #90 tablet 03/03/21 08/11/21 Rx trazodone 50 mg tablet 50 mg PO QHS #30 tablet 03/03/21 08/11/21 Rx meclizine 12.5 mg tablet 12.5 mg PO TID PRN #90 tablet 03/19/21 08/11/21 Rx hydrochlorothiazide 25 mg tablet 25 mg PO DAILY #30 tablet 03/20/21 08/11/21 Rx carvedilol 25 mg tablet 25 mg PO Q12H #180 tablet 03/27/21 08/11/21 Rx hydrocodone 10 mg-acetaminophen 1 tablet PO Q6H PRN #120 tablet 06/02/21 08/11/21 Rx 325 mg tablet amlodipine 10 mg tablet 10 mg PO DAILY #90 tablet 06/08/21 08/11/21 Rx Xarelto 20 mg PO DAILY 06/29/21 08/11/21 History insulin detemir U-100 [Levemir 35 unit SUB-Q DAILY 08/11/21 08/11/21 History FlexTouch U-100 Insuln] Laboratory Tests 08/12/21 08/13/21 08/13/21 21:05 00:23 05:40 WBC RBC Hgb Hct MCV MCH MCHC RDW Plt Count MPV Immature Gran % (Auto) Neut % (Auto) Lymph % (Auto) [place] % (Auto) Eos % (Auto) Baso % (Auto) Lymph # (Auto) [place] # (Auto) Eos # (Auto) Baso # (Auto) Abs Immat Gran (auto) Absolute Neuts (auto) Absolute Nucleated RBC Nucleated RBC % Sodium Potassium Chloride Carbon Dioxide Anion Gap BUN Creatinine Estim Creat Clear Calc Estimated GFR Glucose POC Capillary Glucose 146 mg/dl H mg/dl 121 mg/dl H mg/dl 117 mg/dl H mg/dl (65-105) (65-105) (65-105) Calcium 08/13/21 08/13/21 08/13/21 06:18 06:18 12:12 WBC 8.6 K/mm3 K/mm3 (4.5-10.0) RBC 2.72 M/mm3 L M/mm3 (4.2-5.4) Hgb 7.9 g/dL L g/dL (12.0-15.0) Hct 25.3 % L % (37.0-47.0) MCV 93.0 fl fl (80-100) MCH 29.0 pg pg (26-34) MCHC 31.2 g/dl L g/dl (32-36) RDW 19.2 % H % (11.5-14.5) Plt Count 249 k/mm3 k/mm3 (150-375) MPV 10.5 fl H fl (7.4-10.4) Immature Gran % (Auto) 0.5 % % (0-0.5) Neut % (Auto) 86.4 % H % (45.5-73.1) Lymph % (Auto) 6.0 % L % (18.3-44.2) [place] % (Auto) 5.4 % % (2.6-8.5) Eos % (Auto) 1.2 % % (0-4.4) Baso % (Auto) 0.5 % % (0.2-1.2) Lymph # (Auto) 0.51 K/mm3 L K/mm3 (0.9-3.2) [place] # (Auto) 0.5 K/mm3 K/mm3 (0.1-0.6) Eos # (Auto) 0.1 K/mm3 K/mm3 (0-0.3) Baso # (Auto) 0.0 K/mm3 K/mm3 (0.0-0.1) Abs Immat Gran (auto) 0.04 K
--- NOTE | 2021-08-13 13:13 | PC.NURSE ---
patient returning to floor from GI lab
[2021-08-13] MEDS: allopurinoL 100 MG TABLET 200 MG PO (13:21)
[2021-08-13] MEDS: PRAVASTATIN SODIUM 20 MG TABLET 40 MG PO (13:22)
[2021-08-13] MEDS: FENOFIBRATE NANOCRYSTALLIZED 145 MG TABLET PO (13:22)
[2021-08-13] MEDS: hydroCHLOROthiazide 25 MG TABLET PO (13:22)
[2021-08-13] MEDS: ASPIRIN 81 MG ENTERIC TABLET PO (13:22)
--- NOTE | 2021-08-13 13:39 | PM.IMPN ---
Progress Note: A&P Assessment and Plan (1) Severe anemia: Code(s): D64.9 - Anemia, unspecified Status: Acute Assessment and Plan: Admission hemoglobin of 6.1 discharge hemoglobin recently was 8.9 Transfused 2 unit of PRBC hemoglobin with rise of hemoglobin to 7.4 Recurrent symptomatic anemia likely due to upper GI losses. Recent EGD with Dieulafoy lesions which were cauterized GI has been consulted awaiting GI evaluation. 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 Moderate sliding scale insulin with Accu-Cheks q.6 hours while NPO. Hypoglycemia protocol has been ordered. (3) Tobacco use disorder, continuous: Code(s): F17.209 - Nicotine dependence, unspecified, with unspecified nicotine-induced disorders Status: Acute Assessment and Plan: The patient has cut her tobacco use down to 1/2 pack per day. I encouraged her to continue our efforts to cut down and eventually stopping smoking. (4) Chronic kidney disease (CKD) stage G4/A3, severely decreased glomerular filtration rate (GFR) between 15-29 mL/min/1.73 square meter and albuminuria creatinine ratio greater than 300 mg/g: Code(s): N18.4 - Chronic kidney disease, stage 4 (severe) Status: Acute Assessment and Plan: Creatinine of 2.1 on admission baseline around 1.5 Subjective Date/time seen: 08/13/21 13:39 Interval history: HPI:71-year-old female with a past medical history of paroxysmal atrial fibrillation on chronic anticoagulation, CHF, chronic tobacco abuse and recent upper GI bleed who presented to the ER with recurrent anemia. The patient was hospitalized 06/26/2021 through 06/30/2021 due to GI bleed. She had any EGD and colonoscopy which demonstrated Dieulafoy lesion and 2 benign colon polyps. She had cauterization of her gastric lesion. One week after discharge she was instructed to restart her Xarelto. Few days after starting her Xarelto she had several days of dark/black stools. However, over the last week she has not had any further black stools. Her hemoglobin 11 10/2020 was 8.9 and dropped today to 6.1. Ever since her last hospitalization she has had dyspnea on exertion that has worsened over the last 2 weeks. She has also had progressive fatigue. she denies any increased lower extremity swelling, orthopnea or paroxysmal nocturnal dyspnea. She has not had any chest pain. She is compliant with her home CPAP. She has not had any cough, congestion, fevers or chills. She has not had any hematuria or changes in urinary frequency. She denies any nausea or vomiting reports a good appetite. 08/12/2021 states she feels hungry. Has not had any bowel movement since admission. Denies any abdominal pain or nausea vomiting. Feels weak 08/13/2021 she is awaiting for EGD this morning. She has not had any bowel yesterday abdominal pain and nausea Review of Systems Review of Systems: All systems reviewed & are unremarkable except as noted in HPI and below (HPI) Exam Narrative: General: No acute distress, well-developed well-nourished HEENT: Marked conjunctival pallor, no scleral icterus, pupils equal and reactive Respiratory: Clear to auscultation bilaterally, no increased work of breathing Cardiovascular: S1-S2, 2+ bilateral radial pedal pulses Gastrointestinal: Soft, nontender, nondistended, positive bowel sounds Skin: Generalized pallor, non jaundice, varicose veins of lower extremities Musculoskeletal: No clubbing, cyanosis or edema
[2021-08-13 15:49] LABS: Glucose Point of Care 98 mg/dl (65-105)
[2021-08-13] MEDS: PANTOPRAZOLE 40 MG TABLET PO (16:03)
[2021-08-13] MEDS: traZODone HCL 50 MG TABLET PO (21:39)
[2021-08-13 22:14] LABS: Glucose Point of Care 139 mg/dl (65-105)
[2021-08-14 06:00] VITALS: BP 148/59; PULSE 61; RESP 18; TEMP 36.5; O2SAT 100
[2021-08-14 06:12] LABS: Basophils Percent Auto 0.6 % (0.2-1.2); Eosinophils Absolute Auto 0.1 K/mm3 (0-0.3); Hematocrit 24.6 % (37.0-47.0); Hemoglobin 7.8 g/dL (12.0-15.0); Immature Granulocyte Absolute 0.03 K/mm3 (0.00-0.031); Immature Granulocyte Percent A 0.6 % (0-0.5); Lymphocytes Absolute Auto 0.61 K/mm3 (0.9-3.2); Lymphocytes Percent Auto 12.5 % (18.3-44.2); Mean Corpuscular HGB Conc 31.7 g/dl (32-36); Mean Corpuscular Hemoglobin 29.7 pg (26-34); Mean Corpuscular Volume 93.5 fl (80-100); Monocytes Absolute Auto 0.4 K/mm3 (0.1-0.6); Monocytes Percent Auto 8.6 % (2.6-8.5); Neutrophils Absolute Auto 3.7 K/mm3 (1.3-6.7); Neutrophils Percent Auto 75.7 % (45.5-73.1); Platelet Count Result 242 k/mm3 (150-375); Red Blood Count 2.63 M/mm3 (4.2-5.4); Red Cell Distribution Width 18.6 % (11.5-14.5); White Blood Count 4.9 K/mm3 (4.5-10.0)
[2021-08-14 06:25] LABS: Anion Gap 5 mmol/L (8-16); Blood Urea Nitrogen 35 mg/dL (7-17); Calcium 10.2 mg/dL (8.4-10.2); Carbon Dioxide 24 mmol/L (22-30); Chloride 107 mmol/L (98-107); Estimated CRCL calculation 23 ml/min; Estimated Glomerular Filt Rate 25; Glucose 109 mg/dL (65-110); Potassium 3.8 mmol/L (3.4-5.0); Sodium 136 mmol/L (137-145)
[2021-08-14 08:14] LABS: Glucose Point of Care 95 mg/dl (65-105)
[2021-08-14] MEDS: FENOFIBRATE NANOCRYSTALLIZED 145 MG TABLET PO (08:54)
[2021-08-14] MEDS: PRAVASTATIN SODIUM 20 MG TABLET 40 MG PO (08:54)
[2021-08-14] MEDS: allopurinoL 100 MG TABLET 200 MG PO (08:54)
[2021-08-14] MEDS: amLODIPine BESYLATE 5 MG TABLET 10 MG PO (08:54)
[2021-08-14 08:55] VITALS: PULSE 61
[2021-08-14] MEDS: ASPIRIN 81 MG ENTERIC TABLET PO (08:55)
[2021-08-14] MEDS: hydroCHLOROthiazide 25 MG TABLET PO (08:55)
[2021-08-14] MEDS: carvediloL 25 MG TABLET PO (08:55)
[2021-08-14] MEDS: lisinopriL 10 MG TABLET 30 MG PO (08:55)
--- NOTE | 2021-08-14 08:59 | WPDANESPN ---
Anes - Prog Note Post-Op Date/Time: 08/14/21 08:59 Cardiovascular status: normal Respiratory status: normal Airway patency: baseline Mental status: baseline Post-Op hydration status: normal Vital Signs: Last Vital Signs Temp 36.5 C 08/14/21 06:00 Pulse 61 08/14/21 08:55 Resp 18 08/14/21 06:00 BP 148/59 H 08/14/21 06:00 Pulse Ox 100 08/14/21 06:00 Pain Score (VAS): 0 I/O: Intake & Output 08/13/21 08/14/21 08/14/21 23:59 07:59 15:59 Intake Total 390 550 Balance 390 550 Laboratory Tests 08/14/21 05:55 08/14/21 05:55 08/13/21 08/13/21 08/13/21 12:12 13:23 21:37 WBC RBC Hgb Hct MCV MCH MCHC RDW Plt Count MPV Immature Gran % (Auto) Neut % (Auto) Lymph % (Auto) [place] % (Auto) Eos % (Auto) Baso % (Auto) Lymph # (Auto) [place] # (Auto) Eos # (Auto) Baso # (Auto) Abs Immat Gran (auto) Absolute Neuts (auto) Absolute Nucleated RBC Nucleated RBC % Sodium Potassium Chloride Carbon Dioxide Anion Gap BUN Creatinine Estim Creat Clear Calc Estimated GFR Glucose POC Capillary Glucose 98 98 139 H Calcium 08/14/21 08/14/21 08/14/21 05:55 05:55 07:34 WBC 4.9 RBC 2.63 L Hgb 7.8 L Hct 24.6 L MCV 93.5 MCH 29.7 MCHC 31.7 L RDW 18.6 H Plt Count 242 MPV 10.0 Immature Gran % (Auto) 0.6 H Neut % (Auto) 75.7 H Lymph % (Auto) 12.5 L [place] % (Auto) 8.6 H Eos % (Auto) 2.0 Baso % (Auto) 0.6 Lymph # (Auto) 0.61 L [place] # (Auto) 0.4 Eos # (Auto) 0.1 Baso # (Auto) 0.0 Abs Immat Gran (auto) 0.03 Absolute Neuts (auto) 3.7 Absolute Nucleated RBC 0.0 Nucleated RBC % 0.0 Sodium 136 L Potassium 3.8 Chloride 107 Carbon Dioxide 24 Anion Gap 5 L BUN 35 H Creatinine 2.00 H Estim Creat Clear Calc 23 Estimated GFR 25 L Glucose 109 POC Capillary Glucose 95 Calcium 10.2 Post-procedural complaints: none Patient Feedback: Patient satisfied with anesthetic care.
[2021-08-14 12:31] LABS: Glucose Point of Care 132 mg/dl (65-105)
--- NOTE | 2021-08-14 13:17 | PM.DS ---
DS: Admitting Diagnosis Discharge Date 08/14/2021 Admitting Diagnosis Anemia DS: Discharge Diagnosis Discharge Diagnosis (1) Severe anemia: Code(s): D64.9 - Anemia, unspecified Status: Acute Assessment and Plan: Admission hemoglobin of 6.1 discharge hemoglobin recently was 8.9 Transfused 2 unit of PRBC hemoglobin with rise of hemoglobin to 7.4 Recurrent symptomatic anemia likely due to upper GI losses. Recent EGD with Dieulafoy lesions which were cauterized GI has been consulted Status post repeat EGD on 08/13/2021 which was normal Xarelto dose 20 mg might be a little bit higher for her renal function which could be the culprit Will resume Xarelto will be using 15 mg daily dosing at discharge. Labs in a week Discussed this with patient (2) Type 2 diabetes mellitus without complication, with long-term current use of insulin: Code(s): E11.9 - Type 2 diabetes mellitus without complications; Z79.4 - prison (current) use of insulin Status: Acute Assessment and Plan: Will resume home Levemir after EGD if able to take p.o.. Moderate sliding scale insulin with Accu-Cheks q.6 hours while NPO. Hypoglycemia protocol has been ordered. (3) Tobacco use disorder, continuous: Code(s): F17.209 - Nicotine dependence, unspecified, with unspecified nicotine-induced disorders Status: Acute Assessment and Plan: The patient has cut her tobacco use down to 1/2 pack per day. I encouraged her to continue our efforts to cut down and eventually stopping smoking. (4) Chronic kidney disease (CKD) stage G4/A3, severely decreased glomerular filtration rate (GFR) between 15-29 mL/min/1.73 square meter and albuminuria creatinine ratio greater than 300 mg/g: Code(s): N18.4 - Chronic kidney disease, stage 4 (severe) Status: Acute Assessment and Plan: Creatinine of 2.1 on admission baseline around 1.5 renal function the worsened has remained stable DS: Summary Hospital Course Hospital Course: See above Time Spent with Patient Time attestation: Total time spent providing and/or coordinating discharge services: 45 minutes Exam Narrative: General: No acute distress, well-developed well-nourished HEENT: Marked conjunctival pallor, no scleral icterus, pupils equal and reactive Respiratory: Clear to auscultation bilaterally, no increased work of breathing Cardiovascular: S1-S2, 2+ bilateral radial pedal pulses Gastrointestinal: Soft, nontender, nondistended, positive bowel sounds Skin: Generalized pallor, non jaundice, varicose veins of lower extremities Musculoskeletal: No clubbing, cyanosis or edema Neurological: Alert and oriented, speech is clear, no facial asymmetry, no localizing neurologic deficits noted on limited exam Psychiatric: Appropriate mood and affect, pleasant and cooperative : Deferred Hematologic/lymphatic: No petechiae, no bruising, no anterior cervical or submandibular lymphadenopathy DS: Data Data Completed and Pending Labs on day of discharge: Labs from last 24 hours 08/14/21 08/14/21 08/14/21 12:20 07:34 05:55 WBC RBC Hgb Hct MCV MCH MCHC RDW Plt Count MPV Immature Gran % (Auto) Neut % (Auto) Lymph % (Auto) [place] % (Auto) Eos % (Auto) Baso % (Auto) Lymph # (Auto) [place] # (Auto) Eos # (Auto) Baso # (Auto) Abs Immat Gran (auto) Absolute Neuts (auto) Absolute Nucleated RBC Nucleated RBC % Sodium 136 L Potassium 3.8 Chloride 107 Carbon Dioxide 24 Anion Gap 5 L BUN 35 H Creatinine 2.00 H Estim Creat Clear Calc 23 Estimated GFR 25 L Glucose 109 POC Capillary Glucose 132 H 95 Calcium 10.2 08/14/21 08/13/21 08/13/21 05:55 21:37 13:23 WBC 4.9 RBC 2.63 L Hgb 7.8 L Hct 24.6 L MCV 93.5 MCH 29.7 MCHC 31.7 L RDW 18.6 H Plt Count 242 MPV 10.0 Immature Gran % (Auto) 0.6 H Ne
[2021-08-14 14:20] VITALS: BP 137/62; PULSE 61; RESP 14; TEMP 36.7; O2SAT 100
--- NOTE | 2021-08-14 16:25 | WPDGIPROGNO ---
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[employer], repeat cbc and decide when she can go back on AC call if questions (2) Chronic atrial fibrillation: Code(s): I48.20 - Chronic atrial fibrillation, unspecified Status: Acute (3) Melena: Code(s): K92.1 - Melena Status: Acute Assessment and Plan: resolved, reported dark stools few days ago (4) Anemia in CKD (chronic kidney disease): Code(s): N18.9 - Chronic kidney disease, unspecified; D63.1 - Anemia in chronic kidney disease Status: Acute (5) Hx of watermaster use of blood 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: Code(s): Z92.29 - Personal history of other drug therapy Status: Acute (6) Diabetic peripheral neuropathy associated with type 2 diabetes mellitus: Code(s): E11.42 - Type 2 diabetes mellitus with diabetic polyneuropathy Status: Acute Subjective Date/time seen: 08/14/21 16:25 Interval history: egd without signs of bleeding, no new events and going home today Review of Systems Review of Systems: All systems reviewed & are unremarkable except as noted in HPI and below Exam Const: General: comfortable and no acute distress HENMT: General nose exam: Normal nares present Eyes: General: appearance normal, both eyes and all related structures Neck: Neck: no JVD Resp: Auscultation: clear to auscultation bilaterally Cardio: Rate: regular rate Rhythm: regular rhythm GI: Inspection: non-distended GI Palp: Yes Soft to palpation, No Tenderness to palpation present (GI) and No Guarding due to palpation present (GI) Auscultation: normal bowel sounds Skin: General skin exam: normal color Neuro: Speech: normal speech Motor exam (neuro): Normal motor muscle tone present throughout Extrem: General: normal to inspection Psych: Mental Status: mental status grossly normal Objective Data Vital Signs Vital Signs: Vital Signs - 24 hr 08/13/21 21:38 08/13/21 21:47 08/14/21 06:00 Temperature 98.3 F 97.7 F Pulse Rate 82 60 61 Respiratory Rate 18 18 Blood Pressure 146/57 H 148/59 H Pulse Oximetry 97 100 08/14/21 08:55 08/14/21 14:20 Temperature 98.1 F Pulse Rate 61 61 Respiratory Rate 14 Blood Pressure 137/62 Pulse Oximetry 100 Intake/Output Intake/Output: Intake & Output 08/11/21 08/12/21 08/13/21 08/14/21 23:59 23:59 23:59 23:59 Intake Total 1329 747 9744 Output Total 2200 Balance -449 977 6833 Meds/Results Medications: Active Medications Generic Name Dose Route Start Last Admin Trade Name Freq PRN Reason Stop Dose Admin Acetaminophen 650 mg 08/11/21 17:31 08/12/21 08:37 Acetaminophen 325 Mg Tablet PO 650 mg Q4H PRN Administration Mild Pain (1-3) or Fever Hydrocodone Bitart/Acetaminophen 1 tab 08/11/21 23:32 08/13/21 05:42 Hydrocodone/Acetaminophen (*Crx) 10-325 Mg Tablet PO 1 tab Q6H PRN Administration pain 7-10 Allopurinol 200 mg 08/12/21 08:00 08/14/21 08:54 Allopurinol 100 Mg Tablet PO 200 mg DAILY@0800 [facility] Administration Amlodipine Besylate 10 mg 08/12/21 09:00 08/14/21 08:54 Amlodipine Besylate 5 Mg Tablet PO 10 mg DAILY KARIME Administration Aspirin 81 mg 08/12/21 09:00 08/14/21 08:55 Aspirin 81 Mg Enteric Tablet PO 81 mg DAILY KARIME Administration Carvedilol 25 mg 08/11/21 23:35 08/14/21 08:55 Carvedilol 25 Mg Tablet PO 25 mg Q12HR KARIME Administration Cyclobenzaprine HCl 10 mg 08/11/21 23:32 08/13/21 11:30 Cyclobenzaprine Hcl 10 Mg Tablet PO 10 mg TID PRN Administration muscle spasm Dextrose 12.5 gm 08/11/21 20:55 Dextrose 50% 25 Gm/50 Ml Syringe IV PUSH PRN
[2021-08-14 16:51] LABS: Glucose Point of Care 123 mg/dl (65-105)
[2021-08-15 15:27] LABS: Red Blood Cell Folate >1000 ng/mL RBC (>280)
== END 2021-08-14 17:18 | disposition home or self-care (01) ==
LOC: ANHED 16:39 → ANH3MEDSUR 19:28
PROVIDERS: Internal Medicine; Internal Medicine Gastroenterology; Admitting Provider Internal Medicine; Emergency Provider Emergency Medicine; PCP Family Medicine; Visit Provider Internal Medicine
PROC: 0DJ08ZZ Inspection of Upper Intestinal Tract, Via Natural or Artificial Opening Endoscopic (ICD-10-PCS; CPT 43235; principal; 2021-08-13 12:00)
DX: D62 Acute posthemorrhagic anemia (principal); D63.1 Anemia in chronic kidney disease; K31.82 Dieulafoy lesion (hemorrhagic) of stomach and duodenum; I13.0 Hypertensive heart and chronic kidney disease with heart failure and stage 1 through stage 4 chronic kidney disease, or unspecified chronic kidney disease; I50.9 Heart failure, unspecified; N18.4 Chronic kidney disease, stage 4 (severe); I48.91 Unspecified atrial fibrillation; F17.210 Nicotine dependence, cigarettes, uncomplicated; E11.42 Type 2 diabetes mellitus with diabetic polyneuropathy; E11.22 Type 2 diabetes mellitus with diabetic chronic kidney disease; R53.83 Other fatigue; K92.1 Melena; R06.09 Other forms of dyspnea; Z79.4 Long term (current) use of insulin; Z79.01 Long term (current) use of anticoagulants
CPT/HCPCS: 43235; 36415; 36430; 80048; 80053; 82607; 82728; 82747; 82948; 83540; 83550; 85025; 85027; 85046; 86850; 86900; 86901; 86920; 96372; 96374; 96376; 97110; 97116; 97161; 97165; 99285; A9270; C9113; G0378; J2001; J2704; J7050; J7120; P9016; Q5106

== ENCOUNTER 2022-05-05 19:49 | Emergency (ER) | payer MEDICARE, SELFPAY ==
[2022-05-05] VITALS (11 sets, daily range): BP systolic 159–206; BP diastolic 69–96; PULSE 58–84; RESP 13–24; TEMP 37; O2SAT 94–98
--- NOTE | ~2022-05-05 | XR_ITS ---
EXAMINATION: XR chest 2V Exam Date/Time: 05/05/2022 20:45 CDT HISTORY: LT SIDED cp TODAY, LT ARM PAIN TODDAY, PREV PACEMAKER Comparison: 06/30/2021. RESULT: Lines, tubes, and devices: Left chest pacer, with intact leads. Lungs and pleura: Bilateral reticular opacities and cuffing. No focal consolidation or pneumothorax. Cardiomediastinal silhouette: Stable. Other: No acute osseous or upper abdominal finding. IMPRESSION: Cardiomegaly with mild interstitial edema. Reviewed, dictated and finalized at location K.
--- NOTE | 2022-05-05 19:55 | ECG_ITS ---
Measurements Intervals [place] Rate: 59 P: CT: 0 QRS: -75 QRSD: 220 T: 101 QT: 535 QTc: 531 Interpretive Statements ELECTRONIC VENTRICULAR PACEMAKER UNDERLYING RHYTHM IS ATRIAL FIBRILLATION COMPARED TO ECG 06/26/2021 19:37:44 NO SIGNIFICANT CHANGES Electronically Signed On 05-06-2022 18:11:56 CDT by Yokasta Campbell M.D.
--- NOTE | 2022-05-05 20:16 | ED.CHESTPAIN ---
HPI - Chest Pain General Chief Complaint: Chest Pain Stated Complaint: CHEST PAIN Time Seen by Provider: 05/05/22 19:51 History of Present Illness HPI narrative: 72-year-old female with history of hypertension diabetes presenting the emergency department for evaluation of intermittent left-sided chest pain. Patient states over the last 2 weeks she has had short lasting left-sided chest pain that does radiate to her left arm. Patient states even at rest or laying down she will have approximately 30 seconds of left-sided chest pain. Patient states she is pain-free at this time. Patient states reason she presented to the emergency department was that the pain seemed to be more frequent today. Patient denies any recent falls or injuries. Patient denies any coughs colds or rash. Patient does have shortness of breath at baseline that is unchanged. Patient states he does have some unstable gait which has been persistent for the last 6 months. Patient does use a walker and states this helps. Patient had history of back surgery in 2016. Patient received 324 of aspirin and nitro by EMS prior to arrival. Patient suspects her last stress test was approximately 5 years ago and patient denies any prior history of GA. Related Data Home Medications Medication Instructions Recorded Confirmed aspirin 81 mg tablet,delayed 81 mg PO DAILY 07/30/19 01/05/22 release (Adult Low Dose Aspirin) Allergies Allergy/AdvReac Type Severity Reaction Status Date / Time Sulfa (Sulfonamide Allergy Unknown Unknown Verified 08/25/21 09:05 Antibiotics) sulfanilamide Allergy Unknown Unknown Verified 08/25/21 09:05 Review of Systems Review of Systems: CONSTITUTIONAL: Denies fever, chills, or sweats. EYES: Denies visual changes, redness, or discharge. ENT: Denies rhinorrhea, congestion, sore throat, or otalgia. CARDIOVASCULAR: See HPI RESPIRATORY: Denies cough or dyspnea. GASTROINTESTINAL: Denies abdominal pain, nausea, vomiting, or diarrhea. GENITOURINARY: Denies dysuria or hematuria. SKIN: Denies rash or itching. MUSCULOSKELETAL: Denies back pain, joint pain, or myalgia. Left-sided chest wall pain. NEUROLOGIC: Denies headache, numbness, or weakness. PSYCHIATRIC: Denies anxiety or depression. [facility] Past Medical History Medical History (Updated 05/06/22 @ 03:32 by Jackson Lopez MD) Acute on chronic blood loss anemia Adenomatous colon polyp Colonoscopy on 06/29/2021 with 2 polyps of the transverse colon with no bleeding and recheck in 5 years. 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 Diabetes Diabetic peripheral neuropathy associated with type 2 diabetes mellitus Diastolic dysfunction Echocardiogram 05/03/2016: EF 65-70%, moderate left atrial enlargement, mild right atrial enlargement, elevated right atrial pressures Dieulafoy lesion of stomach (06/29/21) EGD on 06/29/2021 reveals oozing lesion cauterized Encounter for hepatitis C screening test for low risk patient (07/31/21) hepatitis C screening was negative on 07/31/2021 Essential (primary) hypertension Gout Hx of care home use of blood thinners Hyperlipidemia Insomnia Melena Nail fungal infection (03/03/21) all the nails on the feet Obesity (BMI 30-39.9) CINDI on CPAP Polysomnogram 02/2009: Severe obstructive sleep apnea with CPAP 9 Peripheral vascular disease Proteinuria Pulmonary hypertension Mild pulmonary hypertension with RVSP of 43 on echocardiogram 05/03/2016 Shortness of breath Sick sinus syndrome Tobacco use disorder, continuous Urinary tract infection UTI (urinary tract infection) Vitamin B12 deficiency anemia, unspecified Vitamin D deficiency, unspecified Surgical History Surgical History (Updated 08/11/21 @ 23:38 by Felicita Sanchez, DO)
--- NOTE | 2022-05-05 22:39 | PC.NURSE ---
PT HAS BEEN STUCK MULTIPLE TIMES FOR LAB DRAW, UNABLE TO GET. 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
[2022-05-05 22:52] LABS: Basophils Absolute Auto 0.1 K/mm3 (0.0-0.1); Basophils Percent Auto 0.8 % (0.2-1.2); Eosinophils Absolute Auto 0.3 K/mm3 (0-0.3); Eosinophils Percent Auto 3.4 % (0-4.4); Hemoglobin 10.9 g/dL (12.0-15.0); Immature Granulocyte Absolute 0.07 K/mm3 (0.00-0.031); Immature Granulocyte Percent A 0.9 % (0-0.5); Lymphocytes Absolute Auto 0.81 K/mm3 (0.9-3.2); Lymphocytes Percent Auto 10.3 % (18.3-44.2); Mean Corpuscular HGB Conc 32.1 g/dl (32-36); Mean Corpuscular Hemoglobin 32.5 pg (26-34); Mean Corpuscular Volume 101.5 fl (80-100); Mean Platelet Volume 10.7 fl (7.4-10.4); Monocytes Absolute Auto 0.5 K/mm3 (0.1-0.6); Neutrophils Absolute Auto 6.2 K/mm3 (1.3-6.7); Neutrophils Percent Auto 78.6 % (45.5-73.1); Platelet Count Result 214 k/mm3 (150-375); Red Blood Count 3.35 M/mm3 (4.2-5.4); White Blood Count 7.9 K/mm3 (4.5-10.0)
[2022-05-05 23:03] LABS: Alanine Aminotransferase 12 U/L (6-35); Albumin Level 3.8 g/dL (3.5-5.1); Alkaline Phosphatase 78 U/L (38-126); Anion Gap 9 mmol/L (8-16); Aspartate Amino Transferase 22 U/L (14-36); Bilirubin,Total 0.4 mg/dL (0.2-1.3); Blood Urea Nitrogen 32 mg/dL (7-17); Calcium 9.5 mg/dL (8.4-10.2); Carbon Dioxide 24 mmol/L (22-30); Chloride 99 mmol/L (98-107); Estimated CRCL calculation 30 ml/min; Estimated Glomerular Filt Rate 28; Glucose 148 mg/dL (65-110); Lipase 165 U/L (23-300); Potassium 3.7 mmol/L (3.4-5.0); Sodium 132 mmol/L (137-145)
[2022-05-05 23:05] LABS: INR 2.3; Prothrombin Time 24.4 Seconds (11.1-14.7)
[2022-05-05 23:07] LABS: Partial Thromboplastin Time 45.4 SECONDS (22.3-36.8)
[2022-05-06 00:34] VITALS: BP 201/70; PULSE 62; RESP 13; O2SAT 96
[2022-05-06 01:05] VITALS: BP 195/66; PULSE 61; RESP 17; O2SAT 96
[2022-05-06] MEDS: hydrALAZINE HCL 20 MG/ML VIAL 10 MG IV PUSH (01:05)
[2022-05-06 01:13] LABS: SARS-CoV-2 RNA PCR Negative
[2022-05-06 02:36] VITALS: BP 161/78; PULSE 65; RESP 16; O2SAT 98
[2022-05-06] MEDS: CYCLOBENZAPRINE HCL 10 MG TABLET PO (03:06)
[2022-05-06] MEDS: HYDROcodone/acetaminophen (*CRX) 10-325 MG TABLET 1 TAB PO (03:06)
[2022-05-06 03:09] LABS: Troponin I 0.038 ng/mL (0.000-0.034)
[2022-05-06 04:25] VITALS: BP 174/77; PULSE 71; RESP 18; O2SAT 94
== END 2022-05-06 04:30 | disposition home or self-care (01) ==
PROVIDERS: Emergency Provider Emergency Medicine; PCP Family Medicine
DX: R07.89 Other chest pain (principal); Z20.822 Contact with and (suspected) exposure to COVID-19; F17.210 Nicotine dependence, cigarettes, uncomplicated; I12.9 Hypertensive chronic kidney disease with stage 1 through stage 4 chronic kidney disease, or unspecified chronic kidney disease; E11.22 Type 2 diabetes mellitus with diabetic chronic kidney disease; N18.4 Chronic kidney disease, stage 4 (severe); I48.91 Unspecified atrial fibrillation; Z79.82 Long term (current) use of aspirin; Z86.73 Personal history of transient ischemic attack (TIA), and cerebral infarction without residual deficits; Z87.440 Personal history of urinary (tract) infections
CPT/HCPCS: 36415; 71046; 80053; 83690; 84484; 85025; 85610; 85730; 93005; 96374; 99284; 99285; A9270; C9803; J0360; U0003; U0005

== ENCOUNTER 2022-06-28 06:17 | Emergency (ER) | payer MEDICARE, SELFPAY ==
[2022-06-28] VITALS (19 sets, daily range): BP systolic 146–195; BP diastolic 73–108; PULSE 59–62; RESP 16–18; TEMP 36.4; O2SAT 91–99
--- NOTE | ~2022-06-28 | CT_ITS ---
EXAMINATION: CT abdomen pelvis wo con DATE: 06/28/2022 08:02 INDICATION: Right lower quadrant abdominal pain. TECHNIQUE: Computed tomography (CT) of the abdomen and pelvis was performed without intravenous contr ast. Automated exposure control and iterative reconstruction technique were employed. The dose-length product was 1094.62 mGy-cm. COMPARISON: Lumbar spine MRI 04/14/2009 FINDINGS: The visualized portions of the lung bases demonstrate mild atelectasis. There is smooth sep radha thickening, consistent with mild pulmonary edema. There is a 6 mm nodule in right lower lobe. No pleural effusion. Cardiomegaly is noted. No pericardial effusion. There is a pacer wire in right vent ricle. The liver, gallbladder, spleen, pancreas, and left adrenal gland are normal. There is a 5.5 x 2.9 cm mass in right adrenal gland measuring soft tissue attenuation, stable from 04/14/2009, likely a n adenoma. There are cysts in the kidneys measuring up to 17 mm on the right. Small calcifications at the david of the kidneys are likely vascular. There is no urolithiasis. There are no dilated loops of bowel. The appendix is normal. There are no pathologically enlarged lymph nodes. There is no free in traperitoneal fluid. There is subcutaneous fat stranding in supraumbilical anterior abdominal wall, c onsistent with inflammation. There is severe thoracic and lumbar spondylosis. There are changes of po sterior fusion procedure from L4 S1. IMPRESSION: 1. Mild pulmonary edema. 2. 6 mm pulmonary nodule, probably benign. Consider noncontrast chest CT in 6-12 months. 3. Subcutaneous fat stranding in supraumbilical anterior abdominal wall, consistent with inflammation . Reviewed, dictated and finalized at location B. IMPRESSION: 1. Mild pulmonary edema. 2. 6 mm pulmonary nodule, probably benign. Consider noncontrast chest CT in 6-1 2 months. 3. Subcutaneous fat stranding in supraumbilical anterior abdominal wall, consis tent with inflammation.
--- NOTE | 2022-06-28 07:08 | PC.NURSE ---
Report given to NICOLE Burris.
[2022-06-28] MEDS: SODIUM CHLORIDE 0.9% IV 1,000 ML 999 ML IV CONT (07:28)
[2022-06-28] MEDS: MORPHINE SULFATE (*CRX) 4 MG/ML INJ IV PUSH (07:28)
[2022-06-28 07:30] LABS: Basophils Percent Auto 0.5 % (0.2-1.2); Eosinophils Absolute Auto 0.2 K/mm3 (0-0.3); Eosinophils Percent Auto 2.5 % (0-4.4); Hematocrit 24.7 % (37.0-47.0); Hemoglobin 7.8 g/dL (12.0-15.0); Immature Granulocyte Absolute 0.07 K/mm3 (0.00-0.031); Immature Granulocyte Percent A 0.9 % (0-0.5); Lymphocytes Percent Auto 9.1 % (18.3-44.2); Mean Corpuscular HGB Conc 31.6 g/dl (32-36); Mean Corpuscular Hemoglobin 34.4 pg (26-34); Mean Corpuscular Volume 108.8 fl (80-100); Mean Platelet Volume 10.2 fl (7.4-10.4); Monocytes Absolute Auto 0.6 K/mm3 (0.1-0.6); Monocytes Percent Auto 7.3 % (2.6-8.5); Neutrophils Absolute Auto 6.1 K/mm3 (1.3-6.7); Neutrophils Percent Auto 79.7 % (45.5-73.1); Platelet Count Result 232 k/mm3 (150-375); Red Blood Count 2.27 M/mm3 (4.2-5.4); Red Cell Distribution Width 16.8 % (11.5-14.5); White Blood Count 7.7 K/mm3 (4.5-10.0)
--- NOTE | 2022-06-28 07:30 | ED.GENADULT ---
HPI - General Adult General Chief complaint: Back Pain/Injury Stated complaint: low back pain for 2 days Time Seen by Provider: 06/28/22 07:01 History of Present Illness HPI narrative: Patient is a 72-year-old female who presents ER with back pain. Ongoing for 2 days. Radiates into the abdomen and right lower quadrant. Unable to get comfortable with taking pain medication at home. No fevers chills or sweats. No urinary frequency urgency or dysuria. Denies history of kidney stones. Does not feel like she has urinary tract infection. She has history of chronic back pain but this is different. Denies any trauma but has been to the chiropractor for this. Related Data Home Medications Medication Instructions Recorded Confirmed aspirin 81 mg tablet,delayed 81 mg PO DAILY 07/30/19 06/23/22 release (Adult Low Dose Aspirin) Allergies Allergy/AdvReac Type Severity Reaction Status Date / Time Sulfa (Sulfonamide Allergy Unknown Unknown Verified 06/28/22 06:20 Antibiotics) sulfanilamide Allergy Unknown Unknown Verified 06/28/22 06:20 Review of Systems Review of Systems: All systems reviewed & are unremarkable except as noted in HPI and below Constitutional: Constitutional: Denies chills, Denies fatigue and Denies fever(s) ENT: Denies nasal congestion and Denies sore throat Cardiovascular: Cardiovascular: Denies chest pain, Denies rapid heart rate and Denies radiating jaw, neck or arm pain Respiratory: Respiratory: Denies cough, Denies dyspnea and Denies wheezing Gastrointestinal: Gastrointestinal: Reports abdominal pain, Denies diarrhea, Denies nausea and Denies vomiting Genitourinary: Genitourinary: Denies nocturia, Denies dysuria and Reports flank pain Musculoskeletal: Musculoskeletal: Reports back pain, Denies arthralgias and Denies joint swelling Neurologic: Denies headache(s), Denies focal weakness and Denies numbness [facility] Past Medical History Medical History (Updated 06/28/22 @ 11:12 by Valentino Guerrero MD) Acute on chronic blood loss anemia Adenomatous colon polyp Colonoscopy on 06/29/2021 with 2 polyps of the transverse colon with no bleeding and recheck in 5 years. 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) 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 left cerebellar Diabetes Diabetic peripheral neuropathy associated with type 2 diabetes mellitus Diastolic dysfunction Echocardiogram 05/03/2016: EF 65-70%, moderate left atrial enlargement, mild right atrial enlargement, elevated right atrial pressures Dieulafoy lesion of stomach (06/29/21) EGD on 06/29/2021 reveals oozing lesion cauterized Encounter for hepatitis C screening test for low risk patient (07/31/21) hepatitis C screening was negative on 07/31/2021 Essential (primary) hypertension Gout 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 Hyperlipidemia Insomnia Melena Nail fungal infection (03/03/21) all the nails on the feet Obesity (BMI 30-39.9) CINDI on CPAP Polysomnogram 02/2009: Severe obstructive sleep apnea with CPAP 9 Peripheral vascular disease Proteinuria Pulmonary hypertension Mild pulmonary hypertension with RVSP of 43 on echocardiogram 05/03/2016 Shortness of breath Sick sinus syndrome Tobacco use disorder, continuous Urinary tract infection UTI (urinary tract infection) Vitamin B12 deficiency anemia, unspecified Vitamin D deficiency, unspecified Surgical History Surgical History (Updated 08/11/21 @ 23:38 by Felicita Sanchez DO) H/O hysterectomy for benign disease (~1999) History of colonoscopy with polypectomy Two thousand fifteen, 2017, June 2021 History of esophagogastroduodenoscopy (EGD) (06/29/21) History of lumbar surgery (~1981) History of permanent cardiac pacemaker placement (09/2012) Dr. Prajapati Status post cataract extraction o
[2022-06-28 07:41] LABS: Appearance Urine Clear (Clear); Bilirubin Urine Negative (Negative); Blood Urine Trace-intact (Negative); Color Urine Yellow (Yellow); Glucose Urine UA Negative (Negative); Ketones Urine Negative (Negative); Leukocyte Esterase Ur 1+ LEU/UL (Negative); Nitrate Urine Negative (Negative); Protein Urine 2+ mg/dL (Negative); Specific Grav Ur 1.015 (1.001-1.035); Urobilinogen Urine 0.2 mg/dL (<2.0)
[2022-06-28 07:43] LABS: Alanine Aminotransferase 15 U/L (6-35); Albumin Level 3.8 g/dL (3.5-5.1); Alkaline Phosphatase 49 U/L (38-126); Anion Gap 9 mmol/L (8-16); Aspartate Amino Transferase 32 U/L (14-36); Bilirubin,Total 0.5 mg/dL (0.2-1.3); Blood Urea Nitrogen 45 mg/dL (7-17); Calcium 9.5 mg/dL (8.4-10.2); Carbon Dioxide 22 mmol/L (22-30); Chloride 103 mmol/L (98-107); Estimated CRCL calculation 28 ml/min; Estimated Glomerular Filt Rate 25; Glucose 138 mg/dL (65-110); Lipase 69 U/L (23-300); Potassium 4.6 mmol/L (3.4-5.0); Sodium 134 mmol/L (137-145)
[2022-06-28 07:48] LABS: Add Urine Microscopic? YES; Bacteria Urine 1+ /hpf; Mucus Urine Rare /lpf; RBC Urine 0-2 /hpf (0-2); Squamous Epithelial Cell Urine Rare /hpf (Few); WBC Clumps Urine Present /HPF; WBC Urine 21-30 /hpf
[2022-06-28 08:16] LABS: Platelet Estimate Adequate (Adequate)
[2022-06-28 08:17] LABS: Anisocytosis 1+ (NORMAL); Microcytosis 1+ (NORMAL); Schistocytes None Seen (NORMAL); Stomatocytes 1+ (NORMAL)
[2022-06-28 08:18] LABS: Poikilocytosis 1+ (NORMAL)
[2022-06-28] MEDS: HYDROcodone/acetaminophen (*CRX) 5-325 MG TABLET 1 TAB PO (09:55)
== END 2022-06-28 11:23 | disposition home or self-care (01) ==
PROVIDERS: Emergency Provider Emergency Medicine; PCP Family Medicine
DX: N12 Tubulo-interstitial nephritis, not specified as acute or chronic (principal); I48.20 Chronic atrial fibrillation, unspecified; I69.993 Ataxia following unspecified cerebrovascular disease; E11.22 Type 2 diabetes mellitus with diabetic chronic kidney disease; I12.9 Hypertensive chronic kidney disease with stage 1 through stage 4 chronic kidney disease, or unspecified chronic kidney disease; N18.4 Chronic kidney disease, stage 4 (severe); E11.42 Type 2 diabetes mellitus with diabetic polyneuropathy; E11.51 Type 2 diabetes mellitus with diabetic peripheral angiopathy without gangrene; I73.9 Peripheral vascular disease, unspecified; E78.5 Hyperlipidemia, unspecified; I27.20 Pulmonary hypertension, unspecified; M10.9 Gout, unspecified; G47.33 Obstructive sleep apnea (adult) (pediatric); E53.8 Deficiency of other specified B group vitamins; E55.9 Vitamin D deficiency, unspecified; D50.0 Iron deficiency anemia secondary to blood loss (chronic); Z87.440 Personal history of urinary (tract) infections; Z86.010 Personal history of colon polyps; Z79.01 Long term (current) use of anticoagulants; Z79.4 Long term (current) use of insulin; J81.1 Chronic pulmonary edema; R91.1 Solitary pulmonary nodule
CPT/HCPCS: 36415; 51701; 74176; 80053; 81001; 83690; 85025; 87086; 96361; 96365; 96375; 99284; A9270; J0696; J2270; J7030

== ENCOUNTER 2022-07-13 06:36 | Outpatient (RCR) | payer MEDICARE, SELFPAY ==
[2022-07-13] VITALS (11 sets, daily range): BP systolic 131–156; BP diastolic 61–82; PULSE 55–61; RESP 18–22; TEMP 36.3–36.9; O2SAT 9–96
[2022-07-13] MEDS: ACETAMINOPHEN 325 MG TABLET 650 MG PO (09:01)
[2022-07-13] MEDS: diphenhydrAMINE HCl CAP 25 MG CAPSULE PO (09:02)
[2022-07-13] MEDS: SODIUM CHLORIDE 0.9% IV 250 ML 30 ML IV CONT (09:03)
--- NOTE | 2022-07-13 10:52 | PC.NURSE ---
Pt resting comfortably in bed, VSS, NAD noted, blood infusing without difficulty. Pt finished breakfast, given water to keep on bedside table. Side rails up x 2, call light within reach.
[2022-07-13] MEDS: FUROSEMIDE INJ 40 MG/4 ML VIAL 20 MG IV PUSH (12:26)
--- NOTE | 2022-07-13 12:49 | PC.NURSE ---
Pt resting comfortably on side of bed,finished eating lunch. 2nd unit PRBCs started. Pt tolerating well, VSS, NAD continue to monitor.
--- NOTE | 2022-07-13 15:24 | PC.NURSE ---
2nd entry of VS at 1400 mistakenly entered at 1400 instead of 1500.
== END 2022-10-11 23:59 | disposition home or self-care (01) ==
LOC: ANHCPCTRAN 06:36
PROVIDERS: PCP Family Medicine; Visit Provider Internal Medicine Hematology & Oncology
DX: N18.9 Chronic kidney disease, unspecified (principal); D63.1 Anemia in chronic kidney disease
CPT/HCPCS: 36415; 36430; 86850; 86900; 86901; 86920; 96374; A9270; J1940; J7050; P9016

== ENCOUNTER 2024-05-02 15:26 | Outpatient (CLI) | payer MEDICARE, SELFPAY ==
[2024-05-02 15:53] LABS: Basophils Absolute Auto 0.1 K/mm3 (0.0-0.1); Basophils Percent Auto 0.6 % (0.2-1.2); Eosinophils Absolute Auto 0.2 K/mm3 (0-0.3); Eosinophils Percent Auto 1.8 % (0-4.4); Hematocrit 33.9 % (37.0-47.0); Hemoglobin 10.5 g/dL (12.0-15.0); Immature Granulocyte Absolute 0.06 K/mm3 (0.00-0.031); Immature Granulocyte Percent A 0.7 % (0-0.5); Lymphocytes Absolute Auto 0.49 K/mm3 (0.9-3.2); Lymphocytes Percent Auto 5.4 % (18.3-44.2); Mean Corpuscular Hemoglobin 33.3 pg (26-34); Mean Corpuscular Volume 107.6 fl (80-100); Mean Platelet Volume 11.1 fl (7.4-10.4); Monocytes Absolute Auto 0.4 K/mm3 (0.1-0.6); Monocytes Percent Auto 4.3 % (2.6-8.5); Neutrophils Absolute Auto 7.9 K/mm3 (1.3-6.7); Neutrophils Percent Auto 87.2 % (45.5-73.1); Platelet Count Result 193 k/mm3 (150-375); Red Blood Count 3.15 M/mm3 (4.2-5.4); Red Cell Distribution Width 14.2 % (11.5-14.5)
[2024-05-02 16:42] LABS: Iron 58 ug/dL (37-170)
[2024-05-02 16:45] LABS: Alanine Aminotransferase 14 U/L (6-35); Albumin Level 3.8 g/dL (3.5-5.1); Alkaline Phosphatase 77 U/L (38-126); Anion Gap 12 mmol/L (4-12); Aspartate Amino Transferase 27 U/L (14-36); Bilirubin,Total 0.7 mg/dL (0.2-1.3); Blood Urea Nitrogen 42 mg/dL (7-17); Calcium 9.6 mg/dL (8.4-10.2); Carbon Dioxide 22 mmol/L (22-30); Chloride 101 mmol/L (98-107); Estimated Glomerular Filt Rate 20; Glucose 127 mg/dL (65-110); Lactate Dehydrogenase 195 U/L (120-246); Potassium 4.4 mmol/L (3.4-5.0); Sodium 135 mmol/L (137-145)
[2024-05-02 17:02] LABS: Percent Iron Saturation 15 % (20-50)
[2024-05-02 19:50] LABS: Folic Acid 9.8 ng/mL (2.76->20)
[2024-05-06 03:34] LABS: Methylmalonic Acid 315 nmol/L (69-390)
[2024-05-09 12:34] LABS: Soluble Transferrin Receptor 2.41 mg/L (0.76-1.76)
== END 2024-05-02 15:27 | disposition home or self-care (01) ==
LOC: ANHLAB 15:28
PROVIDERS: Nurse Practitioner Family; PCP Nurse Practitioner Family; Visit Provider Internal Medicine Hematology & Oncology
DX: N18.30 Chronic kidney disease, stage 3 unspecified (principal); D63.1 Anemia in chronic kidney disease
CPT/HCPCS: 36415; 80053; 82607; 82728; 82746; 83540; 83550; 83615; 83921; 84238; 85025

== ENCOUNTER 2024-08-25 10:35 | Inpatient (IN) | payer MEDICARE, SELFPAY ==
[2024-08-25] VITALS (9 sets, daily range): BP systolic 171–188; BP diastolic 60–83; PULSE 70–97; RESP 15–24; TEMP 36.6–37.1; O2SAT 91–94; BMI 41.3
--- NOTE | ~2024-08-25 | XR_ITS ---
EXAMINATION: XR chest 1V portable DATE: 09/01/2024 08:52 INDICATION: Pneumonia. TECHNIQUE: A single frontal view of the chest was obtained. COMPARISON: Chest 2 views 08/25/2024, chest CT 08/26/2024 FINDINGS: There is a diffuse interstitial pattern in the lungs, consistent with mild pulmonary edema. No pleural effusion or pneumothorax. Cardiomegaly is noted. There is a prominent left pericardial fa t pad. There is a left chest wall pacer with leads in the right atrium and right ventricle. IMPRESSION: 1. Mild pulmonary edema. 2. Cardiomegaly. Reviewed, dictated and finalized at location A. NING CLERK
--- NOTE | ~2024-08-25 | CT_ITS ---
EXAMINATION:CT diagnostic chest wo con DATE: 08/26/2024 10:08 INDICATION: Cough and shortness of breath. Lung disease. TECHNIQUE: Computed tomography (CT) of the chest was performed without intravenous contrast. Automate d exposure control and iterative reconstruction technique were employed. The dose-length product (DLP ) was 531.01 mGy-cm. COMPARISON: Chest 2 views 08/25/2024, CT abdomen and pelvis 06/28/2022 FINDINGS: There is septal thickening in the lungs, consistent with pulmonary edema. There is mild ate lectasis bilaterally. There are stable 4 mm and 5 mm nodules in right lower lobe, likely benign. Ther e are small pleural effusions. Cardiomegaly is noted. There are coronary artery calcifications. No pe ricardial effusion. There is mild mediastinal lymphadenopathy, likely reactive. There is a left chest wall pacer with leads in the right atrium and right ventricle. There is a 15 mm hemorrhagic cyst in right kidney. There is a 17 mm cyst in left kidney. Body wall edema is noted. There is severe cervica l and thoracic spondylosis. IMPRESSION: 1. Mild pulmonary edema. 2. Small pleural effusions. Reviewed, dictated and finalized at location A. RITY FLEX UTILITY OFFICER
--- NOTE | ~2024-08-25 | XR_ITS ---
XR chest 2V DATE: 08/25/2024 13:45 INDICATION: Cough, shortness of breath TECHNIQUE: AP and lateral views COMPARISON: 05/05/2022 2 view chest FINDINGS: Cardiomegaly. Pulmonary vascular congestion and redistribution. There is prominence of the minor fissure and greater fissures consistent with subpleural edema. Some [place] B-lines are identifi ed consistent with pulmonary interstitial edema. There are mild central and and to a greater extent l ower lung zone infiltrates, which may be due to pulmonary edema. Pneumonia or aspiration pneumonitis are not excluded. Left sided dual lead pacemaker device. Aortic arch calcification. IMPRESSION: Cardiomegaly, pulmonary vascular congestion, pulmonary interstitial and subpleural edema and bilateral central and lower lung infiltrates, most likely due to congestive heart failure and pul monary edema. Additional pneumonia or aspiration are not excluded Reviewed, dictated and finalized at location A. SPORTATION REFRIGERATION TECHNICIAN IMPRESSION: Cardiomegaly, pulmonary vascular congestion, pulmonary interstitial and subpleural edema and bilateral central and lower lung infiltrates, most li [place] due to congestive heart failure and pulmonary edema. Additional pneumonia or aspiration are not excluded
--- NOTE | ~2024-08-25 | US_ITS ---
BILATERAL LOWER EXTREMITY VENOUS ULTRASOUND Ordering provider: Harshil Cordero MD History: . possible dvt . Comparison: None. FINDINGS: RIGHT LOWER EXTREMITY VEINS: --COMMON FEMORAL: Patent and free of thrombus. Normal compressibility, phasic flow and augmentation. --PROXIMAL SUPERFICIAL FEMORAL: Patent and free of thrombus. Normal compressibility, phasic flow and augmentation. --DISTAL SUPERFICIAL FEMORAL: Patent and free of thrombus. Normal compressibility, phasic flow and au gmentation. --POPLITEAL: Patent and free of thrombus. Normal compressibility, phasic flow and augmentation. --POSTERIOR TIBIAL: Not evaluated. LEFT LOWER EXTREMITY VEINS: --COMMON FEMORAL: Patent and free of thrombus. Normal compressibility, phasic flow and augmentation. --PROXIMAL SUPERFICIAL FEMORAL: Patent and free of thrombus. Normal compressibility, phasic flow and augmentation. --DISTAL SUPERFICIAL FEMORAL: Patent and free of thrombus. Normal compressibility, phasic flow and au gmentation. --POPLITEAL: Patent and free of thrombus. Normal compressibility, phasic flow and augmentation. --POSTERIOR TIBIAL: Not evaluated. IMPRESSION: Negative bilateral lower extremity venous US. No deep vein thrombosis. Reviewed, dictated and finalized at location A. NE ARCHITECT
[2024-08-25 14:12] LABS: Influenza A QL RT-PCR Negative (Negative); Influenza B QL RT-PCR Negative (Negative); SARS-CoV-2 RNA PCR Negative (Negative)
[2024-08-25] MEDS: ACETAMINOPHEN 500 MG TABLET 1000 MG PO (14:19)
[2024-08-25 15:28] LABS: Basophils Percent Auto 0.2 % (0.2-1.2); Eosinophils Percent Auto 0.1 % (0-4.4); Hematocrit 33.5 % (37.0-47.0); Hemoglobin 10.3 g/dL (12.0-15.0); Immature Granulocyte Absolute 0.08 K/mm3 (0.00-0.031); Immature Granulocyte Percent A 0.6 % (0-0.5); Lymphocytes Absolute Auto 0.24 K/mm3 (0.9-3.2); Lymphocytes Percent Auto 1.8 % (18.3-44.2); Mean Corpuscular HGB Conc 30.7 g/dl (32-36); Mean Corpuscular Hemoglobin 33.6 pg (26-34); Mean Corpuscular Volume 109.1 fl (80-100); Mean Platelet Volume 10.7 fl (7.4-10.4); Monocytes Absolute Auto 0.5 K/mm3 (0.1-0.6); Neutrophils Absolute Auto 12.5 K/mm3 (1.3-6.7); Neutrophils Percent Auto 93.3 % (45.5-73.1); Nucleated Red Blood Cells Perc 0.2 % (0.0-0.2); Platelet Count Result 155 k/mm3 (150-375); Red Blood Count 3.07 M/mm3 (4.2-5.4); White Blood Count 13.4 K/mm3 (4.5-10.0)
[2024-08-25 15:37] LABS: Alanine Aminotransferase 14 U/L (6-35); Albumin Level 3.3 g/dL (3.5-5.1); Alkaline Phosphatase 61 U/L (38-126); Anion Gap 7 mmol/L (4-12); Aspartate Amino Transferase 26 U/L (14-36); Bilirubin,Total 1.4 mg/dL (0.2-1.3); Blood Urea Nitrogen 35 mg/dL (7-17); Calcium 9.3 mg/dL (8.4-10.2); Carbon Dioxide 27 mmol/L (22-30); Chloride 105 mmol/L (98-107); Estimated CRCL calculation 24 ml/min; Estimated Glomerular Filt Rate 21; Glucose 167 mg/dL (65-110); Potassium 4.4 mmol/L (3.4-5.0); Sodium 139 mmol/L (137-145)
[2024-08-25 15:44] LABS: Macrocytosis 1+ (NORMAL); Platelet Estimate Adequate (Adequate); Schistocytes None Seen
[2024-08-25 15:48] LABS: NT Pro B Type Natriuretic Pept 29000 pg/mL (19.9-100)
--- NOTE | 2024-08-25 16:02 | ED_ITS ---
HPI - General Adult General Chief complaint: Unspecified Stated complaint: hurt from head to toe Time Seen by Provider: 08/25/24 11:55 Source: patient Mode of arrival: ambulatory Limitations: no limitations History of Present Illness HPI narrative: This is a 74F with history of SSS (status post pacemaker placement), diabetes mellitus, and hypertension who presents to the emergency department stating that she ?hurts from head to toe. ? The patient complains of a headache, cough productive of some sputum and fusion myalgias. She states her bilateral lower extremities have been swollen weeping though she denies associated fevers. She complains of some shortness of breath though denies chest pain. She has no other complaints at this time. Related Data Home Medications Medication Instructions Recorded Confirmed aspirin 81 mg tablet,delayed 81 mg PO DAILY 07/30/19 06/25/24 release (Adult Low Dose Aspirin) Allergies Allergy/AdvReac Type Severity Reaction Status Date / Time Sulfa (Sulfonamide Allergy Unknown Unknown Verified 08/25/24 10:44 Antibiotics) sulfanilamide Allergy Unknown Unknown Verified 08/25/24 10:44 Review of Systems Review of Systems: All systems reviewed & are unremarkable except as noted in HPI and below PMFSH Past Medical History Medical History Acute on chronic blood loss anemia Adenomatous colon polyp Colonoscopy on 06/29/2021 with 2 polyps of the transverse colon with no bleeding and recheck in 5 years. 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 Depression Diabetes Diabetic peripheral neuropathy associated with type 2 diabetes mellitus Diastolic dysfunction Echocardiogram 05/03/2016: EF 65-70%, moderate left atrial enlargement, mild right atrial enlargement, elevated right atrial pressures Dieulafoy lesion of stomach (06/29/21) EGD on 06/29/2021 reveals oozing lesion cauterized Encounter for hepatitis C screening test for low risk patient (07/31/21) hepatitis C screening was negative on 07/31/2021 Essential (primary) hypertension Gout 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 Hyperlipidemia Insomnia Melena Nail fungal infection (03/03/21) all the nails on the feet Obesity (BMI 30-39.9) CINDI on CPAP Polysomnogram 02/2009: Severe obstructive sleep apnea with CPAP 9 Peripheral vascular disease Proteinuria Pulmonary hypertension Mild pulmonary hypertension with RVSP of 43 on echocardiogram 05/03/2016 Shortness of breath Sick sinus syndrome Tobacco use disorder, continuous Urinary tract infection UTI (urinary tract infection) Vitamin B12 deficiency anemia, unspecified Vitamin D deficiency, unspecified Vitamin D insufficiency (07/26/22) level is low at 12 on 07/26/2022. Surgical History Surgical History H/O hysterectomy for benign disease (~1999) History of colonoscopy with polypectomy 2017, June 2021 History of esophagogastroduodenoscopy (EGD) (06/29/21) History of lumbar surgery (~1981) History of permanent cardiac pacemaker placement (09/2012) Dr. Prajapati Status post cataract extraction of both eyes with insertion of intraocular lens Status post right foot surgery (~1981) Family History Family History Mother Family history of endocrine disorder Family history of diabetes mellitus in first degree relative Family history of coronary artery disease Family history of cardiovascular disease, Onset Age: 81 Sibling Hypertension Family history of diabetes mellitus in first degree relative Father Carcinoma of colon, Onset Age: 75 Patient's father is Family history of malignant neoplasm, Onset Age: 75 Social History Social History Social History: She has been since 2007. 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 She has smoked a pack of cigarettes per day since she was quite young. She denies any alcohol use. Primary care physician: Dr. Rolando Walker Code status: Full code Surrogate decision maker: Jose (son) Smoking packs per day: 1 Smoking cigarettes per day: 20.0 Years smoked: 57 Smoking pack-years: 57.00 Smoking status: Current every day smoker ( 3/4 of a pack daily) Tobacco type: cigarettes Second hand tobacco smoke exposure: No Alcohol intake: never Substance use: never Substance use type: does not use Do You Feel Safe in your Home?: Yes Lack of Transportation: No Lack of Food: Never True Current Housing: I Have Housing Concerned About Future Housing: No Difficulty Paying Gas/Electric Bills: No Difficulty Paying for Meds: No Currently Unemployed: No Education: High School Diploma/GED Difficulty w/ Childcare or Family Care: No Gender identity (if verbalized by the patient): Female Spiritual care concerns: No Exam Narrative: GENERAL: Well-developed, well-nourished, and in no acute distress. Appears uncomfortable HEAD: Normocephalic, atraumatic. EYES: PERRLA and EOMI. NECK: Supple. No JVD CHEST: Faint rales noted in the bilateral lower lung dickey with good aeration. No respiratory distress. No wheezes or rhonchi HEART: Regular rate and rhythm. No murmur heard. Normal peripheral pulses. ABDOMEN: Soft, nontender, nondistended, normal active bowel sounds. EXTREMITIES: Normal range of motion. Bilateral 3+ lower extremity edema with weeping of some serosanguineous fluid SKIN: Warm, dry, no rash. NEURO: Alert and oriented x3. No focal deficit. Moving all 4 limbs spontaneously PSYCH: Normal mood and affect. Course Course Emergency Course: 16:02 - Chest x-ray shows changes consistent with pulmonary edema versus infiltrate. Labs delayed due to the patient being a difficult stick. CBC demonstrates white blood cell count elevation of 13.4 in baseline anemia with hemoglobin of 10.3. Platelets within normal limits. Chemistries demonstrate elevated creatinine of 2.3 with a baseline of 1.7 but is otherwise unremarkable aside from a mildly elevated total bilirubin [place] 1[place] [address] with no prior labs. The patient tested negative for COVID influenza. Will treat with IV antibiotics, diuretics and plan for admission. I discussed findings and recommendation with the patient and her son, voiced understanding and is comfortable with the plan. 17:09 - I discussed the patient with hospitalist, PRICILA Danielson who accepts admission. Vital Signs Vital signs: Vital Signs Temperature 97.8 F 08/25/24 10:43 Pulse Rate 76 08/25/24 10:43 Respiratory Rate 20 08/25/24 10:43 Blood Pressure 174/60 H 08/25/24 10:43 Pulse Oximetry 93 08/25/24 10:43 Temperature 97.8 F 08/25/24 10:43 Pulse Rate 97 08/25/24 14:21 Respiratory Rate 19 08/25/24 14:21 Blood Pressure 188/83 H 08/25/24 14:21 Pulse Oximetry 92 08/25/24 14:[address] [facility] Narrative Medical decision making narrative: Plan: Labs, imaging, EKG, reassess Differential Diagnosis Differential Diagnosis: COVID, pneumonia, influenza, CHF exacerbation, renal failure, metabolic abnormality, other Vital Signs Vital Signs: Vital Signs Temperature 97.8 F 08/25/24 10:43 Pulse Rate 76 08/25/24 10:43 Respiratory Rate 20 08/25/24 10:43 Blood Pressure 174/60 H 08/25/24 10:43 Pulse Oximetry 93 08/25/24 10:43 Temperature 97.8 F 08/25/24 10:43 Pulse Rate 97 08/25/24 14:21 Respiratory Rate 19 08/25/24 14:21 Blood Pressure 188/83 H 08/25/24 14:21 Pulse Oximetry 92 08/25/24 14:21 Lab Data 08/25/24 15:20 08/25/24 15:20 Labs: Lab Results 08/25/24 08/25/24 Range/Units 13:32 15:20 WBC 13.4 H (4.5-10.0) K/mm3 RBC 3.07 L (4.2-5.4) M/mm3 Hgb 10.3 L (12.0-15.0) g/dL Hct 33.5 L (37.0-47.0) % MCV 109.1 H (80-100) fl MCH 33.6 (26-34) pg MCHC 30.7 L (32-36) g/dl RDW 17.0 H (11.5-14.5) % Plt Count 155 (150-375) k/mm3 MPV 10.7 H (7.4-10.4) fl Immature Gran % (Auto) 0.6 H (0-0.5) % Neut % (Auto) 93.3 H (45.5-73.1) % Lymph % (Auto) 1.8 L (18.3-44.2) % [place] % (Auto) 4.0 (2.6-8.5) % Eos % (Auto) 0.1 (0-4.4) % Baso % (Auto) 0.2 (0.2-1.2) % Lymph # (Auto) 0.24 L (0.9-3.2) K/mm3 [place] # (Auto) 0.5 (0.1-0.6) K/mm3 Eos # (Auto) 0.0 (0-0.3) K/mm3 Baso # (Auto) 0.0 (0.0-0.1) K/mm3 Abs Immat Gran (auto) 0.08 H (0.00-0.031) K/mm3 Absolute Neuts (auto) 12.5 H (1.3-6.7) K/mm3 Absolute Nucleated RBC 0.030 H (0.0-0.012) K/mm3 Nucleated RBC % 0.2 (0.0-0.2) % Platelet Estimate Adequate (Adequate) Macrocytosis 1+ (NORMAL) Schistocytes None seen Sodium 139 (137-145) mmol/L Potassium 4.4 (3.4-5.0) mmol/L Chloride 105 (98-107) mmol/L Carbon Dioxide 27 (22-30) mmol/L Anion Gap 7 (4-12) mmol/L BUN 35 H (7-17) mg/dL Creatinine 2.30 H (0.7-1.0) mg/dL Estim Creat Clear Calc 24 ml/min Estimated GFR 21 L (59 - ) Glucose 167 H (65-110) mg/dL Calcium 9.3 (8.4-10.2) mg/dL Total Bilirubin 1.4 H (0.2-1.3) mg/dL AST 26 (14-36) U/L ALT 14 (6-35) U/L Alkaline Phosphatase 61 (38-126) U/L NT-Pro-B Natriuret Pep 92230 H (19.9-100) pg/mL Total Protein 7.0 (6.3-8.2) g/dL Albumin 3.3 L (3.5-5.1) g/dL Influenza A (RT-PCR) Negative (Negative) Influenza B (RT-PCR) Negative (Negative) SARS-CoV-2 RNA (RT-PCR) Negative (Negative) Discharge Plan Discharge Clinical Impression: PAWAN (acute kidney injury) Pulmonary edema Qualifiers: Chronicity: acute Qualified Code(s): J81.0 - Acute pulmonary edema Pneumonia Qualifiers: Pneumonia type: due to unspecified organism Laterality: unspecified laterality Lung location: lower lobe of lung Qualified Code(s): J18.9 - Pneumonia, unspecified organism Patient Disposition: Still a Patient Condition: Serious Prescriptions: No Action diazepam 2 mg tablet 2 mg PO BID PRN (Reason: vertigo) Qty: 60 3RF ondansetron 4 mg tablet,disintegrating 4 mg PO Q6H PRN (Reason: nausea and vomiting) Qty: 10 0RF aspirin [Adult Low Dose Aspirin] 81 mg tablet,delayed release (DR/EC) 81 mg PO DAILY Hold Instructions: Hold for 1 week. Resume on 07/07/2021 meclizine 12.5 mg tablet 12.5 mg PO TID PRN (Reason: dizziness) Qty: 90 1RF Hold Instructions: no improvement Xarelto 15 mg tablet 15 mg PO DAILY Qty: 30 6RF Rx Instructions: must administer with evening meal fenofibrate 150 mg capsule 150 mg PO DAILY Qty: 90 3RF pravastatin 40 mg tablet 40 mg PO DAILY Qty: 90 3RF lisinopril 30 mg tablet 30 mg PO DAILY Qty: 90 3RF cyclobenzaprine 10 mg tablet 10 mg PO TID PRN (Reason: muscle spasm) Qty: 90 11RF Hold Instructions: expensive allopurinol 100 mg tablet 200 mg PO DAILY Qty: 60 11RF carvedilol 25 mg tablet 25 mg PO Q12H Qty: 180 3RF trazodone 50 mg tablet 50 mg PO QHS Qty: 30 11RF Hold Instructions: fatigue amlodipine 10 mg tablet 10 mg PO DAILY Qty: 90 3RF cholecalciferol (vitamin D3) 1,250 mcg (50,000 unit) capsule 50,000 unit PO WEEKLY Qty: 4 2RF pantoprazole [Protonix] 40 mg tablet,delayed release (DR/EC) 40 mg PO QAM Qty: 30 11RF ferrous sulfate [FeroSul] 325 mg (65 mg iron) tablet 325 mg PO BID Qty: 60 11RF hydrochlorothiazide 25 mg tablet 25 mg PO DAILY Qty: 30 11RF hydrocodone-acetaminophen 10-325 mg tablet 1 tablet PO Q6H PRN (Reason: pain) Qty: 120 0RF Follow-up/Referrals: Mable,Joni Sneed MD [Primary Care Provider] - Time of Disposition: 16:02
[2024-08-25] MEDS: DOXYCYCLINE HYCLATE 100 MG TABLET PO (16:04)
[2024-08-25] MEDS: CEFEPIME 1 GM/NS 50 ML 1 GM/50 ML BAG IVPB (16:05)
--- NOTE | 2024-08-25 18:05 | PM.IMHP ---
H&P: HPI History of Present Illness Date/Time: 08/25/24 17:30 Chief Complaint: Pain all over and leg swelling. Narrative: This is a 74-year-old female with history of stroke, atrial fibrillation on chronic anticoagulation, hypertension, dyslipidemia, chronic kidney disease, chronic anemia, obstructive sleep apnea, peripheral vascular disease, sick sinus syndrome status post permanent pacemaker implantation, and other comorbidities who presented to the emergency department via private vehicle with complaints of ?pain all over? and leg swelling. The patient provides the following history. She has not been feeling well for several days with generalized headache, cough productive of occasional clear sputum, myalgias, shortness of breath, orthopnea, and increasing lower extremity edema to the point where her legs are now weeping. She denies fever, chills, sweats, sinus congestion, sore throat, cough, chest pain, pleuritic pain, palpitations, nausea, vomiting, diarrhea, dysphagia, concerns for aspiration, dysuria, and calf pain. In the ED: She was afebrile on arrival. Blood pressures have been running in the 170s to 180s systolic. She is in atrial fibrillation is rate controlled in the 80s. Labs are significant for WBC count 13.4, hemoglobin 10.3, MCV 109.1, BUN 35, creatinine 2.30, proBNP 55763. Chest x-ray showed cardiomegaly with pulmonary vascular congestion, pulmonary interstitial in sub pleural edema, and bilateral central and lower lung infiltrates most likely due to congestive heart failure and pulmonary edema. Review of Systems Review of Systems: 12 systems were reviewed and are negative except for as per HPI. COUNT INCLUDES [facility] Past Medical History Medical History (Updated 08/25/24 @ 22:27 by Dulce Danielson PA-C) Adenomatous colon polyp Colonoscopy on 06/29/2021 with 2 polyps of the transverse colon with no bleeding and recheck in 5 years. Benign positional vertigo Cerebrovascular accident (05/02/16) 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 left cerebellum Cerebrovascular small vessel disease Chronic anticoagulation Chronic anxiety Chronic atrial fibrillation Chronic bilateral low back pain Chronic kidney disease, stage IV (severe) Depression Diabetic peripheral neuropathy associated with type 2 diabetes mellitus Diastolic dysfunction Echocardiogram 05/03/2016: EF 65-70%, moderate left atrial enlargement, mild right atrial enlargement, elevated right atrial pressures Dieulafoy lesion of stomach (06/29/21) EGD on 06/29/2021 reveals oozing lesion cauterized Encounter for hepatitis C screening test for low risk patient (07/31/21) hepatitis C screening was negative on 07/31/2021 Essential (primary) hypertension Gout Hyperlipidemia Insomnia CINDI on CPAP Polysomnogram 02/2009: Severe obstructive sleep apnea with CPAP 9 Peripheral vascular disease Pulmonary hypertension Mild pulmonary hypertension with RVSP of 43 on echocardiogram 05/03/2016 Sick sinus syndrome status post permanent pacemaker implantation Tobacco use disorder, continuous Vitamin B12 deficiency anemia, unspecified Vitamin D insufficiency (07/26/22) level is low at 12 on 07/26/2022. Surgical History Surgical History (Updated 08/25/24 @ 22:27 by Dulce Danielson PA-C) History of cataract extraction with lens replacement History of colonoscopy with polypectomy Two 2017, June 2021 History of esophagogastroduodenoscopy (EGD) (06/29/21) History of hysterectomy for benign disease (~1999) History of lumbar surgery (~1981) History of permanent cardiac pacemaker placement (09/2012) Dr. Prajapati Status post right foot surgery (~1981) Family History Family History Mother Family history of endocrine disorder Family history of cardiovascular disease, Onset Age: 81 Family history of diabetes mellitus in first degree relative Family history of coronary artery disease Previous back surgery Sibling Family history of diabetes mellitus in first degree relative Hypertension Breast cancer Previous back surgery Father Family history of malignant neoplasm, Onset Age: 75 Patient's father is Carcinoma of colon, Onset Age: 75 Other Lymphoma Social History Social History (Updated 08/25/24 @ 22:28 by Dulce Danielson PA-C) Social History: Surrogate medical decision maker: Jose Chew, son. Code status: Full code. Smoking packs per day: 1 Smoking cigarettes per day: 20.0 Years smoked: 57 Smoking pack-years: 57.00 Smoking status: Current every day smoker Tobacco type: cigarettes Second hand tobacco smoke exposure: No Alcohol intake: never Substance use: never Substance use type: does not use Do You Feel Safe in your Home?: Yes Lack of Transportation: No Lack of Food: Never True Current Housing: I Have Housing Concerned About Future Housing: No Difficulty Paying Gas/Electric Bills: No Difficulty Paying for Meds: No Currently Unemployed: No Education: High School Diploma/GED Difficulty w/ Childcare or Family Care: No Additional living arrangements comments: since 2007. 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 Spiritual care concerns: No Meds Home Medications and Allergies Home Medications Medication Instructions Recorded Confirmed Type aspirin 81 mg tablet,delayed 81 mg PO DAILY 07/30/19 08/25/24 History release (Adult Low Dose Aspirin) fenofibrate 150 mg capsule 150 mg PO DAILY #90 caps 11/16/21 08/25/24 Rx lisinopril 30 mg tablet 30 mg PO DAILY #90 tabs 01/31/22 08/25/24 Rx pravastatin 40 mg tablet 40 mg PO DAILY #90 tabs 01/31/22 08/25/24 Rx cyclobenzaprine 10 mg tablet 10 mg PO TID PRN muscle spasm #90 03/04/22 08/25/24 Rx tabs allopurinol 100 mg tablet 200 mg PO DAILY #60 tabs 03/17/22 08/25/24 Rx carvedilol 25 mg tablet 25 mg PO Q12H #180 tabs 03/30/22 08/25/24 Rx trazodone 50 mg tablet 50 mg PO QHS #30 tabs 05/03/22 08/25/24 Rx amlodipine 10 mg tablet 10 mg PO DAILY #90 tabs 06/09/22 08/25/24 Rx ondansetron 4 mg disintegrating 4 mg PO Q6H PRN nausea and 06/28/22 08/25/24 Rx tablet vomiting #10 tabs cholecalciferol (vitamin D3) 1,250 50,000 unit PO WEEKLY #4 caps 08/22/22 08/25/24 Rx mcg (50,000 unit) capsule hydrochlorothiazide 25 mg tablet 25 mg PO DAILY #30 tabs 10/04/22 08/25/24 Rx ferrous sulfate 325 mg (65 mg 325 mg PO DAILY 08/25/24 08/25/24 History iron) tablet (FeroSul) rivaroxaban 20 mg tablet (Xarelto) 20 mg PO DAILY 08/25/24 08/25/24 History Allergies Allergy/AdvReac Type Severity Reaction Status Date / Time Sulfa (Sulfonamide Allergy Unknown Unknown Verified 08/25/24 19:58 Antibiotics) sulfanilamide Allergy Unknown Unknown Verified 08/25/24 19:58 acetaminophen [From [place]] AdvReac Dizziness Verified 08/25/24 20:20 hydrocodone [From [place]] AdvReac Dizziness Verified 08/25/24 20:20 Vital Signs Vital Signs - 24 hr 08/25/24 10:43 08/25/24 12:03 08/25/24 12:40 Temperature 97.8 F Pulse Rate 76 82 70 Respiratory Rate 20 15 17 Blood Pressure 174/60 H 173/63 H 183/72 H Pulse Oximetry 93 91 94 08/25/24 14:21 08/25/24 17:39 Temperature Pulse Rate 97 89 Respiratory Rate 19 18 Blood Pressure 188/83 H 176/79 H Pulse Oximetry 92 93 Exam Narrative: General: Chronically ill-appearing female sitting up in bed in no distress. Weight: 109.1 kg. BMI: 41.3. HEENT: PERRL, EOMI. Sclera anicteric. Slightly pale conjunctiva. Oral mucosa moist. Crowded oropharynx. Neck: Supple. Exam limited due to neck circumference. No obvious jugular venous distention. Respiratory: Mildly tachypneic though she appears in no respiratory distress and is speaking in full sentences. Lung sounds are diminished at the bases with scattered crackles. Cardiovascular: Irregularly irregular rate and rhythm. Soft systolic murmur at the left sternal border. Gastrointestinal: Abdomen is soft, obese, nontender, and nondistended with positive bowel sounds. Skin: Warm. Skin is dry and scaly. Chronic skin changes of the bilateral lower legs due to stasis dermatitis without evidence of infection. Scattered, scaly lesions. Extremities: No cyanosis or clubbing. Bilateral lower extremity edema with some weeping. Neurological: Alert. Cranial nerves 2-12 are grossly intact. No gross focal deficits to casual conversation. Psychiatric: Pleasant and cooperative with normal mood and affect. Judgment and insight intact. H&P: Results Labs Labs: Short CBC 08/25/24 Range/Units 15:20 WBC 13.4 H (4.5-10.0) K/mm3 Hgb 10.3 L (12.0-15.0) g/dL Hct 33.5 L (37.0-47.0) % Plt Count 155 (150-375) k/mm3 BMP 08/25/24 15:20 Sodium 139 Potassium 4.4 Chloride 105 Carbon Dioxide 27 BUN 35 H Creatinine 2.30 H Glucose 167 H Calcium 9.3 Liver Function 08/25/24 Range/Units 15:20 Total Bilirubin 1.4 H (0.2-1.3) mg/dL AST 26 (14-36) U/L ALT 14 (6-35) U/L Alkaline Phosphatase 61 (38-126) U/L Albumin 3.3 L (3.5-5.1) g/dL Impressions Chest X-Ray 08/25/24 13:54 IMPRESSION: 1. Cardiomegaly, pulmonary vascular congestion, pulmonary interstitial and subpleural edema and bilateral central and lower lung infiltrates, most likely due to congestive heart failure and pulmonary edema. 2. Additional pneumonia or aspiration are not excluded. Assessment and Plan Assessment and plan (1) Suspected congestive heart failure: Code(s): R09.89 - Other specified symptoms and signs involving the circulatory and respiratory systems Status: Acute (2) Pneumonia: Qualifiers: Laterality: unspecified laterality Lung location: lower lobe of lung Pneumonia type: due to unspecified organism Qualified Code(s): J18.9 - Pneumonia, unspecified organism Code(s): J18.9 - Pneumonia, unspecified organism Status: Acute (3) Chronic kidney disease, stage IV (severe): Code(s): N18.4 - Chronic kidney disease, stage 4 (severe) Status: Acute (4) Chronic atrial fibrillation: Code(s): I48.20 - Chronic atrial fibrillation, unspecified Status: Acute (5) Chronic anticoagulation: Code(s): Z79.01 - adjunct faculty for medical terminology (current) use of anticoagulants Status: Acute (6) Essential (primary) hypertension: Code(s): I10 - Essential (primary) hypertension Status: Acute (7) CINDI on CPAP: Code(s): G47.33 - Obstructive sleep apnea (adult) (pediatric); Z99.89 - Dependence on other enabling machines and devices Status: Acute (8) Type 2 diabetes mellitus without complication, with long-term current use of insulin: Code(s): E11.9 - Type 2 diabetes mellitus without complications; Z79.4 - senior care (current) use of insulin Status: Acute Plan The patient presented to the emergency department for evaluation of ?hurting from head to toe? and increasing lower extremity edema with weeping of the legs as detailed in HPI. Labs, imaging, EKG, and all reports were personally reviewed. Clinically she has CHF exacerbation will be diuresed with close monitoring of volume status, renal function, and electrolytes. Echocardiogram ordered. She is in chronic atrial fibrillation and is rate controlled with carvedilol. Monitor on telemetry overnight. Continue rivaroxaban for stroke prophylaxis. Continue antibiotics for possible underlying pneumonia as well. Anemia stable on review of previous labs. CPAP will be provided for the patient to use while hospitalized. Blood pressures were reviewed and they are stable. Continue basal insulin. Initiate sliding scale insulin, Accu-Cheks, and hypoglycemic protocol. Her home medications will be reviewed and resumed as appropriate. Findings and treatment plan were discussed with the patient. Questions were solicited and answered to satisfaction. The patient's medical management will be taken over by the hospitalist team in a.m. Quality VTE Prophylaxis VTE prophylaxis: pharmacologic ordered (on rivaroxaban) The patient has been admitted under observation status. Hospitalist MIPS Advance Care Plan I have confirmed that the patient's Advanced Care Plan is present, code status is documented, or surrogate decision maker is listed in patient medical record.: Yes Medication Reconciliation I have utilized all available resources to obtain, update and review the patients current medications (includes all prescriptions, OTC, herbals, cannabis, and nutritional supplements).: Yes
[2024-08-25] MEDS: FUROSEMIDE INJ 40 MG/4 ML VIAL 60 MG IV PUSH (19:36)
[2024-08-25 19:52] LABS: Glucose Point of Care 112 mg/dl (65-105)
[2024-08-25] MEDS: INSULIN GLARGINE (*BKC) 100 UNITS/ML 16 UNITS SUB-Q (19:52)
[2024-08-25 23:16] LABS: Anion Gap 5 mmol/L (4-12); Blood Urea Nitrogen 36 mg/dL (7-17); Calcium 9.2 mg/dL (8.4-10.2); Carbon Dioxide 28 mmol/L (22-30); Chloride 105 mmol/L (98-107); Estimated CRCL calculation 24 ml/min; Estimated Glomerular Filt Rate 21; Glucose 154 mg/dL (65-110); Potassium 3.9 mmol/L (3.4-5.0); Sodium 138 mmol/L (137-145)
[2024-08-25 23:30] LABS: CRP 15.2 mg/dL (<1.0); Troponin I 0.047 ng/mL (0.000-0.034)
[2024-08-25 23:38] LABS: Iron 23 ug/dL (37-170)
[2024-08-25 23:48] LABS: Percent Iron Saturation 7 % (20-50)
[2024-08-25] MEDS: carvediloL 25 MG TABLET PO (23:54)
[2024-08-25 23:57] LABS: Procalcitonin 0.3 ng/mL
[2024-08-26] VITALS (13 sets, daily range): BP systolic 148–181; BP diastolic 57–81; PULSE 62–88; RESP 19–22; TEMP 36.1–36.8; O2SAT 96–100
[2024-08-26 00:08] LABS: Add Urine Microscopic? YES; Appearance Urine Cloudy (Clear); Bacteria Urine 4+ /hpf; Bilirubin Urine Negative (Negative); Blood Urine Trace (Negative); Color Urine Yellow (Yellow); Glucose Urine UA Trace mg/dL (Negative); Ketones Urine Negative (Negative); Leukocyte Esterase Ur Negative LEU/UL (Negative); Nitrate Urine Positive (Negative); Protein Urine 3+ mg/dL (Negative); RBC Urine 0-2 /hpf (0-2); Specific Grav Ur 1.011 (1.001-1.035); Squamous Epithelial Cell Urine None Seen /hpf (Few); WBC Urine 0-5 /hpf (0-3)
[2024-08-26 00:10] LABS: Thyroid Stimulating Hormone Reflex 0.365 uIU/mL (0.465-4.68)
[2024-08-26 00:20] LABS: Folic Acid 9.5 ng/mL (2.76->20)
[2024-08-26 00:35] LABS: Influenza A QL RT-PCR Negative (Negative); Influenza B QL RT-PCR Negative (Negative); SARS-CoV-2 RNA PCR Negative (Negative)
[2024-08-26] MEDS: CYCLOBENZAPRINE HCL 10 MG TABLET PO ×2 (00:46→21:09)
[2024-08-26 00:53] LABS: Free T4 Free Thyroxine Reflex 2.02 ng/dL (0.78-2.19)
[2024-08-26 01:12] LABS: MRSA (PCR) NOT DETECTED (NOT DETECTE)
[2024-08-26 01:39] LABS: Total Triiodothyronine (T3) 0.69 NG/ML (0.97-1.69)
[2024-08-26 05:09] LABS: Basophils Percent Auto 0.2 % (0.2-1.2); Eosinophils Percent Auto 0.2 % (0-4.4); Hematocrit 30.2 % (37.0-47.0); Hemoglobin 9.5 g/dL (12.0-15.0); Immature Granulocyte Absolute 0.05 K/mm3 (0.00-0.031); Immature Granulocyte Percent A 0.4 % (0-0.5); Lymphocytes Absolute Auto 0.27 K/mm3 (0.9-3.2); Lymphocytes Percent Auto 2.4 % (18.3-44.2); Mean Corpuscular HGB Conc 31.5 g/dl (32-36); Mean Corpuscular Hemoglobin 34.5 pg (26-34); Mean Corpuscular Volume 109.8 fl (80-100); Mean Platelet Volume 11.1 fl (7.4-10.4); Monocytes Absolute Auto 0.4 K/mm3 (0.1-0.6); Monocytes Percent Auto 3.9 % (2.6-8.5); Neutrophils Absolute Auto 10.6 K/mm3 (1.3-6.7); Neutrophils Percent Auto 92.9 % (45.5-73.1); Platelet Count Result 141 k/mm3 (150-375); Red Blood Count 2.75 M/mm3 (4.2-5.4); Red Cell Distribution Width 16.9 % (11.5-14.5); White Blood Count 11.4 K/mm3 (4.5-10.0)
[2024-08-26 05:32] LABS: Anion Gap 5 mmol/L (4-12); Blood Urea Nitrogen 36 mg/dL (7-17); Calcium 9.2 mg/dL (8.4-10.2); Carbon Dioxide 29 mmol/L (22-30); Chloride 105 mmol/L (98-107); Estimated CRCL calculation 24 ml/min; Estimated Glomerular Filt Rate 21; Glucose 143 mg/dL (65-110); Potassium 3.8 mmol/L (3.4-5.0); Sodium 139 mmol/L (137-145)
--- NOTE | 2024-08-26 05:35 | ADMGEN ---
This patient, Jaida Chew, was admitted to Medical Room 247-. Patient/family oriented to hospital policies and general routines including ID bracelet, bed and alarms, visiting hours, pain management, procedures, bathroom and other care routines, personal items, smoking policy, room service/diet, and visiting hours. Information on how to activate the Rapid Response Team has been discussed. Patient/Family are encouraged to report perceived risks to care and to ask questions if they do not understand what they are told or what they should do.
--- NOTE | 2024-08-26 05:36 | PC.NURSE ---
Pt requested DNR on admission. Pt verbalized understanding of DNR status. Order received to change code status to DNR per Dr. Sanchez
[2024-08-26 05:40] LABS: Troponin I 0.042 ng/mL (0.000-0.034)
[2024-08-26] MEDS: DOXYCYCLINE HYCLATE 100 MG TABLET PO ×2 (06:01→17:01)
[2024-08-26] MEDS: ACETAMINOPHEN 325 MG TABLET 650 MG PO ×4 (06:01→22:27)
--- NOTE | 2024-08-26 08:00 | ECG_ITS ---
Test Date: 2024-08-26 08:03:39 Measurements Intervals [place] Rate: 63 P: 0 KS: 0 QRS: -25 QRSD: 109 T: -60 QT: 354 QTc: 364 Interpretive Statements ATRIAL FIBRILLATION intermittent paced ventricular beats BORDERLINE LEFT AXIS DEVIATION [QRS AXIS < -20] NONSPECIFIC ST & T-WAVE ABNORMALITY ABNORMAL RHYTHM ECG No previous ECG available for comparison Electronically Signed On 08-26-2024 12:14:31 FIELD TRAFFIC INVESTIGATOR by Meir España M.D.
[2024-08-26 08:03] LABS: Glucose Point of Care 98 mg/dl (65-105)
[2024-08-26] MEDS: FUROSEMIDE INJ 40 MG/4 ML VIAL 20 MG IV PUSH ×2 (08:29→16:17)
[2024-08-26] MEDS: PRAVASTATIN SODIUM 20 MG TABLET 40 MG PO (08:30)
[2024-08-26] MEDS: carvediloL 25 MG TABLET PO ×2 (08:31→20:23)
[2024-08-26] MEDS: ASPIRIN 81 MG ENTERIC TABLET PO (08:31)
[2024-08-26] MEDS: amLODIPine BESYLATE 10 MG TABLET PO (08:31)
[2024-08-26] MEDS: guaiFENesin 12 HR 600 MG TABCR 1200 MG PO ×2 (08:32→20:23)
[2024-08-26] MEDS: allopurinoL 100 MG TABLET 200 MG PO (08:32)
[2024-08-26] MEDS: FERROUS SULFATE 325 MG TABLET DR BY MOUTH (08:32)
[2024-08-26] MEDS: lisinopriL 10 MG TABLET 30 MG PO (08:32)
[2024-08-26 11:49] LABS: Glucose Point of Care 165 mg/dl (65-105)
--- NOTE | 2024-08-26 12:14 | P.PNIM_ITS ---
Progress Note: A&P Assessment and Plan (1) Suspected congestive heart failure: Code(s): R09.89 - Other specified symptoms and signs involving the circulatory and respiratory systems Status: Acute (2) Pneumonia: Qualifiers: Laterality: unspecified laterality Lung location: lower lobe of lung Pneumonia type: due to unspecified organism Qualified Code(s): J18.9 - Pneumonia, unspecified organism Code(s): J18.9 - Pneumonia, unspecified organism Status: Acute (3) Chronic kidney disease, stage IV (severe): Code(s): N18.4 - Chronic kidney disease, stage 4 (severe) Status: Acute (4) Chronic atrial fibrillation: Code(s): I48.20 - Chronic atrial fibrillation, unspecified Status: Acute (5) Chronic anticoagulation: Code(s): Z79.01 - bed bug exterminator (current) use of anticoagulants Status: Acute (6) Essential (primary) hypertension: Code(s): I10 - Essential (primary) hypertension Status: Acute (7) CINDI on CPAP: Code(s): G47.33 - Obstructive sleep apnea (adult) (pediatric); Z99.89 - Dependence on other enabling machines and devices Status: Acute (8) Type 2 diabetes mellitus without complication, with long-term current use of insulin: Code(s): E11.9 - Type 2 diabetes mellitus without complications; Z79.4 - bed bug exterminator (current) use of insulin Status: Acute Plan CHF exacerbation Leg edema and on [address] chest showed pulm edema continue lasix monitor Pneumonia ruled out CT chest negative for pneumonia however will continue Abx for suspected antibiotics Bilateral leg stasis dermatitis vs cellulitis felt warm to palpation continue antibiotics Chronic atrial fibrillation continue anticoagulation and rate control CINDI continue CPAP HTN titrate home meds with clinical course DM2 SSi with accucheks, adjust with clinical course Continue lantus monitor DVT prophylaxis on Xarelto Subjective Date/time seen: 08/26/24 12:14 Interval history: patient comfortable at bedside patient noted she she presented due to generalized body pain and leg swelling CT Chest negative for Pneumonia LEg exam showed bilateral erythema which patient stated is chronic Review of Systems Review of Systems: 12 systems were reviewed and are negativ e except for as per HPI. Exam Narrative: General: Chronically ill-appearing female sitting up in bed in no distress. Weight: 109.1 kg. BMI: 41.3. HEENT: PERRL, EOMI. Sclera anicteric. Slightly pale conjunctiva. Oral mucosa moist. Crowded oropharynx. Neck: Supple. Exam limited due to neck circumference. No obvious jugular venous distention. Respiratory: Mildly tachypneic though she appears in no respiratory distress and is speaking in full sentences. Lung sounds are diminished at the bases with scattered crackles. Cardiovascular: Irregularly irregular rate and rhythm. Soft systolic murmur at the left sternal border. Gastrointestinal: Abdomen is soft, obese, nontender, and nondistended with positive bowel sounds. Skin: Warm. Skin is dry and scaly. Chronic skin changes of the bilateral lower legs due to stasis dermatitis without evidence of infection. Scattered, scaly lesions. Extremities: No cyanosis or clubbing. Bilateral lower extremity edema with some weeping. Neurological: Alert. Cranial nerves 2-12 are grossly intact. No gross focal deficits to casual conversation. Psychiatric: Pleasant and cooperative with normal mood and affect. Judgment and insight intact. Objective Data Vital Signs Vital Signs: Vital Signs - 24 hr 08/25/24 12:40 08/25/24 14:21 08/25/24 17:39 Temperature Pulse Rate 70 97 89 Respiratory Rate 17 19 18 Blood Pressure 183/72 H 188/83 H 176/79 H Pulse Oximetry 94 92 93 Oxygen Delivery Oxygen Flow Rate Fraction of Inspired Oxygen 08/25/24 19:47 08/25/24 23:54 08/25/24 23:58 Temperature 98.8 F Pulse Rate 84 78 Respiratory Rate 24 H Blood Pressure 171/72 H 178/78 H Pulse Oximetry 92 Oxygen Delivery Oxygen Flow Rate Fraction of Inspired Oxygen 08/25/24 20:00 08/26/24 04:00 08/25/24 20:00 Temperature 98.2 F Pulse Rate 66 89 Respiratory Rate 20 Blood Pressure 181/64 H Pulse Oximetry 98 Oxygen Delivery Room Air Oxygen Flow Rate Fraction of Inspired Oxygen 08/26/24 00:00 08/26/24 04:00 08/26/24 08:27 Temperature 97.2 F L Pulse Rate 70 74 73 Respiratory Rate 20 Blood Pressure 179/81 H Pulse Oximetry 96 Oxygen Delivery Oxygen Flow Rate Fraction of Inspired Oxygen 08/26/24 08:31 08/26/24 09:13 08/26/24 08:29 Temperature Pulse Rate 83 Respiratory Rate Blood Pressure Pulse Oximetry 98 100 Oxygen Delivery Room Air Nasal Cannula Oxygen Flow Rate 2 Fraction of Inspired Oxygen 21 08/26/24 08:29 08/26/24 10:52 Temperature Pulse Rate 83 67 Respiratory Rate 22 H Blood Pressure 154/57 H Pulse Oximetry 97 Oxygen Delivery Oxygen Flow Rate Fraction of Inspired Oxygen Intake/Output Intake/Output: Intake & Output 08/23/24 08/24/24 08/25/24 08/26/24 23:59 23:59 23:59 23:59 Intake Total 50 420 Output Total 500 400 Balance -450 20 Meds/Results Medications: Active Medications Generic Name Dose Route Start Last Admin Trade Name Freq PRN Reason Stop Dose Admin Acetaminophen 650 mg 08/26/24 05:33 08/26/24 06:01 Acetaminophen 325 Mg Tablet PO 650 mg Q4H PRN Administration Mild Pain (1-3) or Fever Allopurinol 200 mg 08/26/24 09:00 08/26/24 08:32 Allopurinol 100 Mg Tablet PO 200 mg DAILY KARIME Administration Amlodipine Besylate 10 mg 08/26/24 09:00 08/26/24 08:31 Amlodipine Besylate 10 Mg Tablet PO 10 mg DAILY KARIME Administration Aspirin 81 mg 08/26/24 09:00 08/26/24 08:31 Aspirin 81 Mg Enteric Tablet PO 81 mg DAILY KARIME Administration Carvedilol 25 mg 08/25/24 22:40 08/26/24 08:31 Carvedilol 25 Mg Tablet PO 25 mg Q12HR KARIME Administration Cyclobenzaprine HCl 10 mg 08/25/24 22:36 08/26/24 00:46 Cyclobenzaprine Hcl 10 Mg Tablet PO 10 mg TID PRN Administration muscle spasm Dextrose 12.5 gm 08/25/24 22:39 Dextrose 50% 25 Gm/50 Ml Syringe IV PUSH PRN PRN Hypoglycemia Protocol Doxycycline Hyclate 100 mg 08/26/24 06:00 08/26/24 06:01 Doxycycline Hyclate 100 Mg Tablet PO 100 mg Q12H KARIME Administration Ferrous Sulfate 325 mg 08/26/24 09:00 08/26/24 08:32 Ferrous Sulfate [address] BY MOUTH 325 mg DAILY KARIME Administration Furosemide 20 mg 08/26/24 09:00 08/26/24 08:29 Furosemide Inj 40 Mg/4 Ml Vial IV PUSH 20 mg BID KARIME Administration Glucagon 1 mg 08/25/24 22:39 Glucagon For Inj 1 Mg Vial IM PRN PRN Hypoglycemia Protocol Glucose 15 gm 08/25/24 22:39 Glucose Oral Gel 15 Gm Of Glucse In 37.5 Gm Tube PO PRN PRN Hypoglycemia Protocol Guaifenesin 1,200 mg 08/26/24 09:00 08/26/24 08:32 Guaifenesin 12 Hr 600 Mg Tabcr PO 1,200 mg Q12HR KARIME Administration Dextrose 1,000 mls @ 100 mls/hr 08/25/24 22:39 Dextrose 5% 1,000 Ml IVPB PRN PRN Hypoglycemia Protocol Ceftriaxone Sodium 1 gm in 50 mls @ 100 mls/hr 08/25/24 23:00 08/26/24 00:24 Rocephin 1 Gm/Ns 50 Ml IVPB Infused Q24H KARIME Infusion Insulin Aspart 5 units 08/26/24 08:00 08/26/24 08:33 Insulin Aspart (*Bkc) 100 Units/Ml 0.05 units/kg (5 units) Not Given SUB-Q TIDWM [facility] Insulin Glargine 16 units 08/25/24 21:00 08/25/24 19:52 Insulin Glargine (*Bkc) 100 Units/Ml 0.15 units/kg (16 units) 16 units SUB-Q Administration [facility] Lisinopril 30 mg 08/26/24 09:00 08/26/24 08:32 Lisinopril 10 Mg Tablet PO 30 mg DAILY KARIME Administration Perflutren Lipid Microsphere 0 ml 08/25/24 23:33 Perflutren Lipid Microspheres 1.5 Ml Vial Diluted To 10 Ml Total Volume IV PUSH 08/28/24 23:33 ONCE PRN adequate visualization Protocol Pravastatin Sodium 40 mg 08/26/24 09:00 08/26/24 08:30 Pravastatin Sodium 20 Mg Tablet PO 40 mg DAILY [facility] Administration Rivaroxaban 20 mg 08/26/24 17:00 Rivaroxaban 20 Mg Tablet PO DAILY@1700 [facility] Trazodone HCl 50 mg 08/26/24 21:00 Trazodone Hcl 50 Mg Tablet PO QHS [facility] Radiology Results: ITS Impressions Chest X-Ray 08/25/24 13:54 IMPRESSION: Cardiomegaly, pulmonary vascular congestion, pulmonary interstitial and subpleural edema and bilateral central and lower lung infiltrates, most likely due to congestive heart failure and pulmonary edema. Additional pneumonia or aspiration are not excluded Chest CT 08/26/24 10:10 IMPRESSION: 1. Mild pulmonary edema. 2. Small pleural effusions. Labs Labs: Laboratory Results - last 24 hr 08/25/24 08/25/24 08/25/24 13:32 15:20 19:45 WBC 13.4 H RBC 3.07 L Hgb 10.3 L Hct 33.5 L MCV 109.1 H MCH 33.6 MCHC 30.7 L RDW 17.0 H Plt Count 155 MPV 10.7 H Immature Gran % (Auto) 0.6 H Neut % (Auto) 93.3 H Lymph % (Auto) 1.8 L [place] % (Auto) 4.0 Eos % (Auto) 0.1 Baso % (Auto) 0.2 Lymph # (Auto) 0.24 L [place] # (Auto) 0.5 Eos # (Auto) 0.0 Baso # (Auto) 0.0 Abs Immat Gran (auto) 0.08 H Absolute Neuts (auto) 12.5 H Absolute Nucleated RBC 0.030 H Nucleated RBC % 0.2 Platelet Estimate Adequate Macrocytosis 1+ Schistocytes None seen Sodium 139 Potassium 4.4 Chloride 105 Carbon Dioxide 27 Anion Gap 7 BUN 35 H Creatinine 2.30 H Estim Creat Clear Calc 24 Estimated GFR 21 L Glucose 167 H POC Capillary Glucose 112 H Calcium 9.3 Iron TIBC % Saturation Ferritin Total Bilirubin 1.4 H AST 26 ALT 14 Alkaline Phosphatase 61 Troponin I C-Reactive Protein NT-Pro-B Natriuret Pep 44395 H Total Protein 7.0 Albumin 3.3 L Vitamin B12 Folate Procalcitonin TSH (Reflex) Free T4 Total T3 Urine Color Urine Appearance Urine pH Ur Specific [place] Urine Protein Urine Glucose (UA) Urine Ketones Ur Blood (Man) Urine Nitrate Urine Bilirubin Urine Urobilinogen Leukocyte Esterase Rfl Urine RBC Urine WBC Ur Squamous Epith Cells Urine Bacteria Urine Casts Nasal MRSA (PCR) Influenza A (RT-PCR) Negative Influenza B (RT-PCR) Negative SARS-CoV-2 RNA (RT-PCR) Negative 08/25/24 08/25/24 08/25/24 22:50 23:49 23:50 WBC RBC Hgb Hct MCV MCH MCHC RDW Plt Count MPV Immature Gran % (Auto) Neut % (Auto) Lymph % (Auto) [place] % (Auto) Eos % (Auto) Baso % (Auto) Lymph # (Auto) [place] # (Auto) Eos # (Auto) Baso # (Auto) Abs Immat Gran (auto) Absolute Neuts (auto) Absolute Nucleated RBC Nucleated RBC % Platelet Estimate Macrocytosis Schistocytes Sodium 138 Potassium 3.9 Chloride 105 Carbon Dioxide 28 Anion Gap 5 BUN 36 H Creatinine 2.30 H Estim Creat Clear Calc 24 Estimated GFR 21 L Glucose 154 H POC Capillary Glucose Calcium 9.2 Iron 23 L TIBC 337 % Saturation 7 L Ferritin 142.00 Total Bilirubin AST ALT Alkaline Phosphatase Troponin I 0.047 H* C-Reactive Protein 15.2 H NT-Pro-B Natriuret Pep Total Protein Albumin Vitamin B12 888.0 Folate 9.5 Procalcitonin 0.3 TSH (Reflex) 0.365 L Free T4 2.02 Total T3 0.69 L Urine Color Yellow Urine Appearance Cloudy H Urine pH 5.0 Ur Specific [place] 1.011 Urine Protein 3+ H Urine Glucose (UA) Trace H Urine Ketones Negative Ur Blood (Man) Trace Urine Nitrate Positive H Urine Bilirubin Negative Urine Urobilinogen 1.0 Leukocyte Esterase Rfl Negative Urine RBC 0-2 Urine WBC 0-5 Ur Squamous Epith Cells None seen Urine Bacteria 4+ H Urine Casts 3-5 Nasal MRSA (PCR) Not detected Influenza A (RT-PCR) Influenza B (RT-PCR) SARS-CoV-2 RNA (RT-PCR) 08/25/24 08/26/24 08/26/24 23:52 01:52 04:18 WBC 11.4 H RBC 2.75 L Hgb 9.5 L Hct 30.2 L MCV 109.8 H MCH 34.5 H MCHC 31.5 L RDW 16.9 H Plt Count 141 L MPV 11.1 H Immature Gran % (Auto) 0.4 Neut % (Auto) 92.9 H Lymph % (Auto) 2.4 L [place] % (Auto) 3.9 Eos % (Auto) 0.2 Baso % (Auto) 0.2 Lymph # (Auto) 0.27 L [place] # (Auto) 0.4 Eos # (Auto) 0.0 Baso # (Auto) 0.0 Abs Immat Gran (auto) 0.05 H Absolute Neuts (auto) 10.6 H Absolute Nucleated RBC 0.000 Nucleated RBC % 0.0 Platelet Estimate Macrocytosis Schistocytes Sodium 139 Potassium 3.8 Chloride 105 Carbon Dioxide 29 Anion Gap 5 BUN 36 H Creatinine 2.30 H Estim Creat Clear Calc 24 Estimated GFR 21 L Glucose 143 H POC Capillary Glucose Calcium 9.2 Iron TIBC % Saturation Ferritin Total Bilirubin AST ALT Alkaline Phosphatase Troponin I 0.040 H* 0.042 H* C-Reactive Protein NT-Pro-B Natriuret Pep Total Protein Albumin Vitamin B12 Folate Procalcitonin TSH (Reflex) Free T4 Total T3 Urine Color Urine Appearance Urine pH Ur Specific [place] Urine Protein Urine Glucose (UA) Urine Ketones Ur Blood (Man) Urine Nitrate Urine Bilirubin Urine Urobilinogen Leukocyte Esterase Rfl Urine RBC Urine WBC Ur Squamous Epith Cells Urine Bacteria Urine Casts Nasal MRSA (PCR) Influenza A (RT-PCR) Negative Influenza B (RT-PCR) Negative SARS-CoV-2 RNA (RT-PCR) Negative 08/26/24 08/26/24 07:42 11:33 WBC RBC Hgb Hct MCV MCH MCHC RDW Plt Count MPV Immature Gran % (Auto) Neut % (Auto) Lymph % (Auto) [place] % (Auto) Eos % (Auto) Baso % (Auto) Lymph # (Auto) [place] # (Auto) Eos # (Auto) Baso # (Auto) Abs Immat Gran (auto) Absolute Neuts (auto) Absolute Nucleated RBC Nucleated RBC % Platelet Estimate Macrocytosis Schistocytes Sodium Potassium Chloride Carbon Dioxide Anion Gap BUN Creatinine Estim Creat Clear Calc Estimated GFR Glucose POC Capillary Glucose 98 165 H Calcium Iron TIBC % Saturation Ferritin Total Bilirubin AST ALT Alkaline Phosphatase Troponin I C-Reactive Protein NT-Pro-B Natriuret Pep Total Protein Albumin Vitamin B12 Folate Procalcitonin TSH (Reflex) Free T4 Total T3 Urine Color Urine Appearance Urine pH Ur Specific [place] Urine Protein Urine Glucose (UA) Urine Ketones Ur Blood (Man) Urine Nitrate Urine Bilirubin Urine Urobilinogen Leukocyte Esterase Rfl Urine RBC Urine WBC Ur Squamous Epith Cells Urine Bacteria Urine Casts Nasal MRSA (PCR) Influenza A (RT-PCR) Influenza B (RT-PCR) SARS-CoV-2 RNA (RT-PCR) Quality VTE Prophylaxis VTE prophylaxis: pharmacologic ordered (on rivaroxaban)
[2024-08-26 17:17] LABS: Glucose Point of Care 120 mg/dl (65-105)
[2024-08-26] MEDS: INSULIN GLARGINE (*BKC) 100 UNITS/ML 16 UNITS SUB-Q (20:23)
[2024-08-26] MEDS: traZODone HCL 50 MG TABLET PO (20:24)
[2024-08-26 21:04] LABS: Glucose Point of Care 162 mg/dl (65-105)
[2024-08-27] VITALS (13 sets, daily range): BP systolic 145–208; BP diastolic 62–108; PULSE 62–88; RESP 16–22; TEMP 36.1–36.6; O2SAT 95–100
[2024-08-27] MEDS: CYCLOBENZAPRINE HCL 10 MG TABLET PO ×2 (05:51→13:29)
[2024-08-27] MEDS: DOXYCYCLINE HYCLATE 100 MG TABLET PO ×2 (05:51→17:19)
[2024-08-27] MEDS: ACETAMINOPHEN 325 MG TABLET 650 MG PO ×3 (05:51→18:24)
[2024-08-27 06:15] LABS: Basophils Percent Auto 0.3 % (0.2-1.2); Eosinophils Absolute Auto 0.2 K/mm3 (0-0.3); Eosinophils Percent Auto 2.4 % (0-4.4); Hematocrit 32.2 % (37.0-47.0); Hemoglobin 9.8 g/dL (12.0-15.0); Immature Granulocyte Absolute 0.03 K/mm3 (0.00-0.031); Immature Granulocyte Percent A 0.4 % (0-0.5); Lymphocytes Absolute Auto 0.36 K/mm3 (0.9-3.2); Lymphocytes Percent Auto 5.4 % (18.3-44.2); Mean Corpuscular HGB Conc 30.4 g/dl (32-36); Mean Corpuscular Hemoglobin 33.6 pg (26-34); Mean Corpuscular Volume 110.3 fl (80-100); Mean Platelet Volume 10.8 fl (7.4-10.4); Monocytes Absolute Auto 0.5 K/mm3 (0.1-0.6); Monocytes Percent Auto 7.2 % (2.6-8.5); Neutrophils Absolute Auto 5.6 K/mm3 (1.3-6.7); Neutrophils Percent Auto 84.3 % (45.5-73.1); Platelet Count Result 161 k/mm3 (150-375); Red Blood Count 2.92 M/mm3 (4.2-5.4); Red Cell Distribution Width 16.7 % (11.5-14.5); White Blood Count 6.7 K/mm3 (4.5-10.0)
[2024-08-27 06:23] LABS: Lactic Acid Reflex 0.7 mmol/L (0.7-2.0)
[2024-08-27 06:31] LABS: Alanine Aminotransferase 12 U/L (6-35); Albumin Level 3.1 g/dL (3.5-5.1); Alkaline Phosphatase 56 U/L (38-126); Anion Gap 5 mmol/L (4-12); Aspartate Amino Transferase 24 U/L (14-36); Bilirubin,Total 0.9 mg/dL (0.2-1.3); Blood Urea Nitrogen 42 mg/dL (7-17); Calcium 9.3 mg/dL (8.4-10.2); Carbon Dioxide 29 mmol/L (22-30); Chloride 106 mmol/L (98-107); Estimated CRCL calculation 24 ml/min; Estimated Glomerular Filt Rate 19; Glucose 50 mg/dL (65-110); Magnesium 1.5 mg/dL (1.6-2.3); Potassium 3.5 mmol/L (3.4-5.0); Sodium 140 mmol/L (137-145)
[2024-08-27] MEDS: DEXTROSE 50% 25 GM/50 ML SYRINGE IV PUSH (06:37)
[2024-08-27 06:45] LABS: Anisocytosis 2+; Hypochromasia 1+; Macrocytosis 1+ (NORMAL); Platelet Estimate Adequate (Adequate); Polychromasia 1+; Schistocytes None Seen
[2024-08-27 07:00] LABS: Glucose Point of Care 139 mg/dl (65-105)
[2024-08-27 08:03] LABS: Glucose Point of Care 120 mg/dl (65-105)
[2024-08-27] MEDS: ASPIRIN 81 MG ENTERIC TABLET PO (08:37)
[2024-08-27] MEDS: PRAVASTATIN SODIUM 20 MG TABLET 40 MG PO (08:37)
[2024-08-27] MEDS: carvediloL 25 MG TABLET PO ×2 (08:37→20:02)
[2024-08-27] MEDS: amLODIPine BESYLATE 10 MG TABLET PO (08:37)
[2024-08-27] MEDS: lisinopriL 10 MG TABLET 30 MG PO (08:38)
[2024-08-27] MEDS: guaiFENesin 12 HR 600 MG TABCR 1200 MG PO ×2 (08:38→20:02)
[2024-08-27] MEDS: FERROUS SULFATE 325 MG TABLET DR BY MOUTH (08:39)
[2024-08-27] MEDS: allopurinoL 100 MG TABLET 200 MG PO (08:39)
[2024-08-27] MEDS: FUROSEMIDE INJ 40 MG/4 ML VIAL 20 MG IV PUSH ×2 (08:40→17:20)
[2024-08-27] MEDS: IRON SUCROSE COMPLEX 400 MG, IRON SUCROSE COMPLEX 100 MG in SODIUM CHLORIDE 0.9% IV 250 ML 78.57 MG IVPB (08:46)
--- NOTE | 2024-08-27 10:01 | P.CONCA_ITS ---
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 Uncertain if this is related to chronic kidney disease or underlying cardiac issues. Regardless will start her on furosemide 40 mg IV daily times 24-48 hours and then transition to oral. Potassium is also low normal will replace 40 mg p.o. x1. 2D echocardiogram Doppler is ordered and will be reviewed. Continue your other drug regimen although she is on the improper dose of Xarelto for anticoagulation purposes. Lower her Xarelto down to 15 mg daily based upon a creatinine clearance less than 50. In addition to lisinopril, creatinine likely too high to add spironolactone but patient is also ready on carvedilol and Should be continued. (3) Chronic kidney disease, stage IV (severe): Code(s): N18.4 - Chronic kidney disease, stage 4 (severe) Status: Acute (4) Benign hypertension with chronic kidney disease: Code(s): I12.9 - Hypertensive chronic kidney disease with stage 1 through stage 4 chronic kidney disease, or unspecified chronic kidney disease Status: Acute Assessment and Plan: BP is high. Continue current meds and up titrate as able/needed (5) Chronic atrial fibrillation: Code(s): I48.20 - Chronic atrial fibrillation, unspecified Status: Acute Assessment and Plan: On anticoagulation History of Present Illness History of Present Illness Consult date/time: 08/27/24 10:01 Requesting physician: Carlee Kohler MD Consult reason: congestive heart failure Reason For Visit: Pulmonary edema, pneumonia Narrative: Date of service 08/27/2024 Requesting provider: Dr. Kohler Reason for consultation: CHF History patient is a 74-year-old female who has a history of stroke, atrial fibrillation, chronic anticoagulation, pacemaker implantation, anemia, CINDI, chronic kidney disease, peripheral vascular disease, sick sinus syndrome who presented to hospital because of ?pain from head to toe ?. She also states she has been short breath and more swollen over the past 3-4 weeks. She was short of breath with minimal activity. No chest pain, syncope, presyncope, paroxysmal nocturnal dyspnea, orthopnea, palpitations. BnP was ordered and was significantly elevated and chest x-ray and CT scans were concerning for pulmonary vascular congestion. Cardiology consultation therefore requested. Review of Systems Review of Systems: All systems reviewed & are unremarkable except as noted in HPI and below Constitutional: Constitutional: Denies difficulty sleeping Eyes: Eyes: Denies blurry vision ENT: Reports Normal hearing present Cardiovascular: Cardiovascular: Denies chest pain, Reports leg edema and Denies palpitations Respiratory: Respiratory: Reports dyspnea Gastrointestinal: Gastrointestinal: Denies abdominal pain Genitourinary: Genitourinary: Denies hematuria Musculoskeletal: Musculoskeletal: Reports back pain Integumentary/Breasts: Skin/Breast: Reports dry skin Neurologic: Denies Abnormal speech present Psychiatric: Psychiatric: Denies anxiety Endocrine: Endocrine: Denies excessive sweating Hematologic/Lymphatic: Hematologic/Lymphatic: Denies easy bleeding Allergic/Immunologic: Allergic/Immunologic: Denies GI upset with certain foods PMFSH Past Medical History Medical History Adenomatous colon polyp Colonoscopy on 06/29/2021 with 2 polyps of the transverse colon with no bleeding and recheck in 5 years. Benign positional vertigo Cerebrovascular accident (05/02/16) 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 left cerebellum Cerebrovascular small vessel disease Chronic anticoagulation Chronic anxiety Chronic atrial fibrillation Chronic bilateral low back pain Chronic kidney disease, stage IV (severe) Depression Diabetic peripheral neuropathy associated with type 2 diabetes mellitus Diastolic dysfunction Echocardiogram 05/03/2016: EF 65-70%, moderate left atrial enlargement, mild right atrial enlargement, elevated right atrial pressures Dieulafoy lesion of stomach (06/29/21) EGD on 06/29/2021 reveals oozing lesion cauterized Encounter for hepatitis C screening test for low risk patient (07/31/21) hepatitis C screening was negative on 07/31/2021 Essential (primary) hypertension Gout Hyperlipidemia Insomnia CINDI on CPAP Polysomnogram 02/2009: Severe obstructive sleep apnea with CPAP 9 Peripheral vascular disease Pulmonary hypertension Mild pulmonary hypertension with RVSP of 43 on echocardiogram 05/03/2016 Sick sinus syndrome status post permanent pacemaker implantation Tobacco use disorder, continuous Vitamin B12 deficiency anemia, unspecified Vitamin D insufficiency (07/26/22) level is low at 12 on 07/26/2022. Surgical History Surgical History History of cataract extraction with lens replacement History of colonoscopy with polypectomy Two 2017, June 2021 History of esophagogastroduodenoscopy (EGD) (06/29/21) History of hysterectomy for benign disease (~1999) History of lumbar surgery (~1981) History of permanent cardiac pacemaker placement (09/2012) Dr. Prajapati Status post right foot surgery (~1981) Family History Family History Mother Family history of endocrine disorder Family history of cardiovascular disease, Onset Age: 81 Family history of diabetes mellitus in first degree relative Family history of coronary artery disease Previous back surgery Sibling Family history of diabetes mellitus in first degree relative Hypertension Breast cancer Previous back surgery Father Family history of malignant neoplasm, Onset Age: 75 Patient's father is Carcinoma of colon, Onset Age: 75 Other Lymphoma Social History Social History Social History: Surrogate medical decision maker: Jose Chew, son. Code status: Full code. Smoking packs per day: 1 Smoking cigarettes per day: 20.0 Years smoked: 57 Smoking pack-years: 57.00 Smoking status: Current every day smoker Tobacco type: cigarettes Second hand tobacco smoke exposure: No Alcohol intake: never Substance use: never Substance use type: does not use Do You Feel Safe in your Home?: Yes Lack of Transportation: No Lack of Food: Never True Current Housing: I Have Housing Concerned About Future Housing: No Difficulty Paying Gas/Electric Bills: No Difficulty Paying for Meds: No Currently Unemployed: No Education: High School Diploma/GED Difficulty w/ Childcare or Family Care: No Additional living arrangements comments: since 2007. 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 Spiritual care concerns: No Meds Home Medications and Allergies Home Medications Medication Instructions Recorded Confirmed Type aspirin 81 mg tablet,delayed 81 mg PO DAILY 07/30/19 08/25/24 History release (Adult Low Dose Aspirin) fenofibrate 150 mg capsule 150 mg PO DAILY #90 caps 11/16/21 08/25/24 Rx lisinopril 30 mg tablet 30 mg PO DAILY #90 tabs 01/31/22 08/25/24 Rx pravastatin 40 mg tablet 40 mg PO DAILY #90 tabs 01/31/22 08/25/24 Rx cyclobenzaprine 10 mg tablet 10 mg PO TID PRN muscle spasm #90 03/04/22 08/25/24 Rx tabs allopurinol 100 mg tablet 200 mg PO DAILY #60 tabs 03/17/22 08/25/24 Rx carvedilol 25 mg tablet 25 mg PO Q12H #180 tabs 03/30/22 08/25/24 Rx trazodone 50 mg tablet 50 mg PO QHS #30 tabs 05/03/22 08/25/24 Rx amlodipine 10 mg tablet 10 mg PO DAILY #90 tabs 06/09/22 08/25/24 Rx ondansetron 4 mg disintegrating 4 mg PO Q6H PRN nausea and 06/28/22 08/25/24 Rx tablet vomiting #10 tabs cholecalciferol (vitamin D3) 1,250 50,000 unit PO WEEKLY #4 caps 08/22/22 08/25/24 Rx mcg (50,000 unit) capsule hydrochlorothiazide 25 mg tablet 25 mg PO DAILY #30 tabs 10/04/22 08/25/24 Rx ferrous sulfate 325 mg (65 mg 325 mg PO DAILY 08/25/24 08/25/24 History iron) tablet (FeroSul) rivaroxaban 20 mg tablet (Xarelto) 20 mg PO DAILY 08/25/24 08/25/24 History Allergies Allergy/AdvReac Type Severity Reaction Status Date / Time Sulfa (Sulfonamide Allergy Unknown Unknown Verified 08/25/24 19:58 Antibiotics) sulfanilamide Allergy Unknown Unknown Verified 08/25/24 19:58 hydrocodone [From [place]] AdvReac Dizziness Verified 08/25/24 20:20 Vital Signs Vital Signs - 24 hr 08/26/24 10:52 08/26/24 12:00 08/26/24 14:39 Temperature Pulse Rate 67 72 Respiratory Rate 22 H Blood Pressure 154/57 H Pulse Oximetry 97 Oxygen Delivery Nasal Cannula Oxygen Flow Rate 2 Fraction of Inspired Oxygen 08/26/24 16:00 08/26/24 16:00 08/26/24 20:23 Temperature 36.4 C L Pulse Rate 66 74 88 Respiratory Rate 19 Blood Pressure 148/62 H Pulse Oximetry 96 Oxygen Delivery Oxygen Flow Rate Fraction of Inspired Oxygen 08/26/24 20:02 08/26/24 20:25 08/26/24 20:00 Temperature 36.1 C L Pulse Rate 62 88 88 Respiratory Rate 19 20 Blood Pressure 154/58 H Pulse Oximetry 96 97 Oxygen Delivery Nasal Cannula Oxygen Flow Rate 2 Fraction of Inspired Oxygen 21 08/27/24 00:00 08/27/24 00:00 08/27/24 04:00 Temperature 36.4 C Pulse Rate 66 70 64 Respiratory Rate 18 Blood Pressure 154/67 H Pulse Oximetry 99 Oxygen Delivery Oxygen Flow Rate Fraction of Inspired Oxygen 08/27/24 04:00 08/27/24 08:34 08/27/24 08:37 Temperature 36.4 C 36.1 C L Pulse Rate 62 76 69 Respiratory Rate 20 22 H Blood Pressure 145/62 H 184/92 H Pulse Oximetry 99 95 Oxygen Delivery Oxygen Flow Rate Fraction of Inspired Oxygen 08/27/24 08:40 08/27/24 08:40 Temperature Pulse Rate 69 Respiratory Rate Blood Pressure Pulse Oximetry Oxygen Delivery Room Air Oxygen Flow Rate Fraction of Inspired Oxygen Exam Narrative: Alert oriented appears older than stated age Const: General: comfortable and no acute distress HENMT: Face/Nose/Sinus: Normal nares present Mouth: Yes moist mucous membranes Eyes: General: appearance normal, both eyes and all related structures Sclera: sclerae normal Neck: Neck: supple and no JVD Chest: Other: No reproducible chest wall pain to palpation Resp: Effort & Inspection: normal respiratory effort Auscultation: clear to auscultation bilaterally Cardio: Rate: regular rate Heart sounds: no murmurs GI: Inspection: non-distended GI Palp: Yes Soft to palpation Skin: General skin exam: normal color Other: Dry skin throughout Neuro: General: gait normal Extrem: General: edema Other: Chronic lower extremity edema Psych: Mental Status: mental status grossly normal Affect: normal affect Results Labs and Meds 08/27/24 06:00 08/27/24 06:00 Lab results: Cardiac Enzymes 08/27/24 Range/Units 06:00 AST 24 (14-36) U/L CBC 08/27/24 Range/Units 06:00 WBC 6.7 (4.5-10.0) K/mm3 RBC 2.92 L (4.2-5.4) M/mm3 Hgb 9.8 L (12.0-15.0) g/dL Hct 32.2 L (37.0-47.0) % Plt Count 161 (150-375) k/mm3 Lymph # (Auto) 0.36 L (0.9-3.2) K/mm3 [place] # (Auto) 0.5 (0.1-0.6) K/mm3 Eos # (Auto) 0.2 (0-0.3) K/mm3 Baso # (Auto) 0.0 (0.0-0.1) K/mm3 Comprehensive Metabolic Panel 08/27/24 Range/Units 06:00 Sodium 140 (137-145) mmol/L Potassium 3.5 (3.4-5.0) mmol/L Chloride 106 (98-107) mmol/L Carbon Dioxide 29 (22-30) mmol/L BUN 42 H (7-17) mg/dL Creatinine 2.50 H (0.7-1.0) mg/dL Glucose 50 L* (65-110) mg/dL Calcium 9.3 (8.4-10.2) mg/dL AST 24 (14-36) U/L ALT 12 (6-35) U/L Alkaline Phosphatase 56 (38-126) U/L Total Protein 7.0 (6.3-8.2) g/dL Albumin 3.1 L (3.5-5.1) g/dL Intake and Output 08/26/24 08/27/24 08/27/24 23:59 07:59 15:59 Intake Total 330 150 118 Output Total 500 500 Balance -170 -350 118 Intake: Oral 330 150 118 Output: Catheter Urine 500 500 External/Condom 500 500 Patient Weight 08/27/24 23:59 Weight 118.9 kg EKG is personally reviewed and independently interpreted showing V paced rhythm with underlying atrial fibrillation
[2024-08-27] MEDS: POTASSIUM CHLORIDE 20 MEQ ER TABLET 40 MEQ PO (10:57)
--- NOTE | 2024-08-27 11:06 | PM.IMPN ---
Progress Note: A&P Assessment and Plan (1) Suspected congestive heart failure: Code(s): R09.89 - Other specified symptoms and signs involving the circulatory and respiratory systems Status: Acute (2) Pneumonia: Qualifiers: Laterality: unspecified laterality Lung location: lower lobe of lung Pneumonia type: due to unspecified organism Qualified Code(s): J18.9 - Pneumonia, unspecified organism Code(s): J18.9 - Pneumonia, unspecified organism Status: Acute (3) Chronic kidney disease, stage IV (severe): Code(s): N18.4 - Chronic kidney disease, stage 4 (severe) Status: Acute (4) Chronic atrial fibrillation: Code(s): I48.20 - Chronic atrial fibrillation, unspecified Status: Acute (5) Chronic anticoagulation: Code(s): 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 Status: Acute (6) Essential (primary) hypertension: Code(s): I10 - Essential (primary) hypertension Status: Acute (7) CINDI on CPAP: Code(s): G47.33 - Obstructive sleep apnea (adult) (pediatric); Z99.89 - Dependence on other enabling machines and devices Status: Acute (8) Type 2 diabetes mellitus without complication, with long-term current use of insulin: Code(s): E11.9 - Type 2 diabetes mellitus without complications; Z79.4 - terminal 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 (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) use of insulin Status: Acute Plan CHF exacerbation Leg edema and on 1 liter oxygen, baseline is room air CT chest showed pulm edema continue lasix per cardiology monitor Bilateral leg stasis dermatitis vs cellulitis felt warm to palpation continue Michi/Doxy day 11/30 Hypoglycemia BG 50 this morning downgraded lantus to 14 u frmo 16 u continue monitor Pneumonia ruled out CT chest negative for pneumonia however will continue Abx for Cellulitis Chronic atrial fibrillation Xarelto decreased to 15mg nighttime per renal function however it is on hold as patient has Pain clinic appointment tomorrow for steroid injection continue holding CINDI continue CPAP HTN titrate home meds with clinical course DM2 SSi with accucheks, adjust with clinical course Continue lantus @14 u from 16 u monitor DVT prophylaxis on SCDs, Xarelto on hold for outpatient procedure tomorrow Subjective Date/time seen: 08/27/24 11:06 Interval history: Patient was hypoglycemic this morning iwth BG 50 Adjust lantus to 14 units from 16 u Cardiology adjusted lasix. possible discharge tomorrow so patient can meet up with her pain clinic appointment Review of Systems Review of Systems: 12 systems were reviewed and are negative except for as per HPI. Exam Narrative: General: Chronically ill-appearing female sitting up in bed in no distress. Weight: 109.1 kg. BMI: 41.3. HEENT: PERRL, EOMI. Sclera anicteric. Slightly pale conjunctiva. Oral mucosa moist. Crowded oropharynx. Neck: Supple. Exam limited due to neck circumference. No obvious jugular venous distention. Respiratory: Mildly tachypneic though she appears in no respiratory distress and is speaking in full sentences. Lung sounds are diminished at the bases with scattered crackles. Cardiovascular: Irregularly irregular rate and rhythm. Soft systolic murmur at the left sternal border. Gastrointestinal: Abdomen is soft, obese, nontender, and nondistended with positive bowel sounds. Skin: Warm. Skin is dry and scaly. Chronic skin changes of the bilateral lower legs due to stasis dermatitis without evidence of infection. Scattered, scaly lesions. Extremities: No cyanosis or clubbing. Bilateral lower extremity edema with some weeping. Neurological: Alert. Cranial nerves 2-12 are grossly intact. No gross focal deficits to casual conversation. Psychiatric: Pleasant and cooperative with normal mood and affect. Judgment and insight intact. Objective Data Vital Signs Vital Signs: Vital Signs - 24 hr 08/26/24 12:00 08/26/24 14:39 08/26/24 16:00 Temperature Pulse Rate 72 66 Respiratory Rate Blood Pressure Pulse Oximetry Oxygen Delivery Nasal Cannula Oxygen Flow Rate 2 Fraction of Inspired Oxygen 08/26/24 16:00 08/26/24 20:23 08/26/24 20:02 Temperature 97.5 F L Pulse Rate 74 88 62 Respiratory Rate 19 Blood Pressure 148/62 H Pulse Oximetry 96 Oxygen Delivery Oxygen Flow Rate Fraction of Inspired Oxygen 08/26/24 20:25 08/26/24 20:00 08/27/24 00:00 Temperature 97 F L Pulse Rate 88 88 66 Respiratory Rate 19 20 Blood Pressure 154/58 H Pulse Oximetry 96 97 Oxygen Delivery Nasal Cannula Oxygen Flow Rate 2 Fraction of Inspired Oxygen 21 08/27/24 00:00 08/27/24 04:00 08/27/24 04:00 Temperature 97.6 F 97.6 F Pulse Rate 70 64 62 Respiratory Rate 18 20 Blood Pressure 154/67 H 145/62 H Pulse Oximetry 99 99 Oxygen Delivery Oxygen Flow Rate Fraction of Inspired Oxygen 08/27/24 08:34 08/27/24 08:37 08/27/24 08:40 Temperature 96.9 F L Pulse Rate 76 69 Respiratory Rate 22 H Blood Pressure 184/92 H Pulse Oximetry 95 Oxygen Delivery Room Air Oxygen Flow Rate Fraction of Inspired Oxygen 08/27/24 08:40 Temperature Pulse Rate 69 Respiratory Rate Blood Pressure Pulse Oximetry Oxygen Delivery Oxygen Flow Rate Fraction of Inspired Oxygen Intake/Output Intake/Output: Intake & Output 08/24/24 08/25/24 08/26/24 08/27/24 23:59 23:59 23:59 23:59 Intake Total 50 870 268 Output Total 500 900 500 Balance -450 -30 -232 Meds/Results Medications: Active Medications Generic Name Dose Route Start Last Admin Trade Name Freq PRN Reason Stop Dose Admin Acetaminophen 650 mg 08/26/24 05:33 08/27/24 05:51 Acetaminophen 325 Mg Tablet PO 650 mg Q4H PRN Administration Mild Pain (1-3) or Fever Allopurinol 200 mg 08/26/24 09:00 08/27/24 08:39 Allopurinol 100 Mg Tablet PO 200 mg DAILY KARIME Administration Amlodipine Besylate 10 mg 08/26/24 09:00 08/27/24 08:37 Amlodipine Besylate 10 Mg Tablet PO 10 mg DAILY KARIME Administration Aspirin 81 mg 08/26/24 09:00 08/27/24 08:37 Aspirin 81 Mg Enteric Tablet PO 81 mg DAILY KARIME Administration Carvedilol 25 mg 08/25/24 22:40 08/27/24 08:37 Carvedilol 25 Mg Tablet PO 25 mg Q12HR KARIME Administration Cyclobenzaprine HCl 10 mg 08/25/24 22:36 08/27/24 05:51 Cyclobenzaprine Hcl 10 Mg Tablet PO 10 mg TID PRN Administration muscle spasm Dextrose 12.5 gm 08/25/24 22:39 08/27/24 06:37 Dextrose 50% 25 Gm/50 Ml Syringe IV PUSH 12.5 gm PRN PRN Administration Hypoglycemia Protocol Doxycycline Hyclate 100 mg 08/26/24 06:00 08/27/24 05:51 Doxycycline Hyclate 100 Mg Tablet PO 100 mg Q12H KARIME Administration Ferrous Sulfate 325 mg 08/26/24 09:00 08/27/24 08:39 Ferrous Sulfate [address] BY MOUTH 325 mg DAILY KARIME Administration Furosemide 20 mg 08/26/24 09:00 08/27/24 08:40 Furosemide Inj 40 Mg/4 Ml Vial IV PUSH 20 mg BID KARIME Administration Glucagon 1 mg 08/25/24 22:39 Glucagon For Inj 1 Mg Vial IM PRN PRN Hypoglycemia Protocol Glucose 15 gm 08/25/24 22:39 Glucose Oral Gel 15 Gm Of Glucse In 37.5 Gm Tube PO PRN PRN Hypoglycemia Protocol Guaifenesin 1,200 mg 08/26/24 09:00 08/27/24 08:38 Guaifenesin 12 Hr 600 Mg Tabcr PO 1,200 mg Q12HR KARIME Administration Dextrose 1,000 mls @ 100 mls/hr 08/25/24 22:39 Dextrose 5% 1,000 Ml IVPB PRN PRN Hypoglycemia Protocol Ceftriaxone Sodium 1 gm in 50 mls @ 100 mls/hr 08/25/24 23:00 08/26/24 23:10 Rocephin 1 Gm/Ns 50 Ml IVPB 100 mls/hr Q24H KARIME Administration Iron Sucrose 400 mg/ Iron 275 mls @ 78.571 mls/hr 08/27/24 08:00 08/27/24 08:46 Sucrose 100 mg/ Sodium IVPB 08/27/24 11:29 78.57 mls/hr Chloride ONCE ONE Administration Insulin Aspart 5 units 08/26/24 08:00 08/27/24 08:51 Insulin Aspart (*Bkc) 100 Units/Ml 0.05 units/kg (5 units) Not Given SUB-Q TIDWM KARIME Insulin Glargine 14 units 08/27/24 21:00 Insulin Glargine (*Bkc) 100 Units/Ml SUB-Q HS KARIME Lisinopril 30 mg 08/26/24 09:00 08/27/24 08:38 Lisinopril 10 Mg Tablet PO 30 mg DAILY KARIME Administration Perflutren Lipid Microsphere 0 ml 08/25/24 23:33 Perflutren Lipid Microspheres 1.5 Ml Vial Diluted To 10 Ml Total Volume IV PUSH 08/28/24 23:33 ONCE PRN adequate visualization Protocol Pravastatin Sodium 40 mg 08/26/24 09:00 08/27/24 08:37 Pravastatin Sodium 20 Mg Tablet PO 40 mg DAILY [facility] Administration Rivaroxaban 15 mg 08/27/24 17:00 Rivaroxaban 15 Mg Tablet PO DAILY@1700 [facility] Trazodone HCl 50 mg 08/26/24 21:00 08/26/24 20:24 Trazodone Hcl 50 Mg Tablet PO 50 mg QHS KARIME Administration Radiology Results: ITS Impressions Chest X-Ray 08/25/24 13:54 IMPRESSION: Cardiomegaly, pulmonary vascular congestion, pulmonary interstitial and subpleural edema and bilateral central and lower lung infiltrates, most likely due to congestive heart failure and pulmonary edema. Additional pneumonia or aspiration are not excluded Chest CT 08/26/24 10:10 IMPRESSION: 1. Mild pulmonary edema. 2. Small pleural effusions. Labs Labs: Laboratory Results - last 24 hr 08/26/24 08/26/24 08/26/24 11:33 17:14 20:21 WBC RBC Hgb Hct MCV MCH MCHC RDW Plt Count MPV Immature Gran % (Auto) Neut % (Auto) Lymph % (Auto) [place] % (Auto) Eos % (Auto) Baso % (Auto) Lymph # (Auto) [place] # (Auto) Eos # (Auto) Baso # (Auto) Abs Immat Gran (auto) Absolute Neuts (auto) Absolute Nucleated RBC Nucleated RBC % Platelet Estimate Polychromasia Hypochromasia Anisocytosis Macrocytosis Schistocytes Sodium Potassium Chloride Carbon Dioxide Anion Gap BUN Creatinine Estim Creat Clear Calc Estimated GFR Glucose POC Capillary Glucose 165 H 120 H 162 H Lactic Acid Calcium Magnesium Total Bilirubin AST ALT Alkaline Phosphatase Total Protein Albumin 08/27/24 08/27/24 08/27/24 06:00 06:58 07:44 WBC 6.7 RBC 2.92 L Hgb 9.8 L Hct 32.2 L MCV 110.3 H MCH 33.6 MCHC 30.4 L RDW 16.7 H Plt Count 161 MPV 10.8 H Immature Gran % (Auto) 0.4 Neut % (Auto) 84.3 H Lymph % (Auto) 5.4 L [place] % (Auto) 7.2 Eos % (Auto) 2.4 Baso % (Auto) 0.3 Lymph # (Auto) 0.36 L [place] # (Auto) 0.5 Eos # (Auto) 0.2 Baso # (Auto) 0.0 Abs Immat Gran (auto) 0.03 Absolute Neuts (auto) 5.6 Absolute Nucleated RBC 0.000 Nucleated RBC % 0.0 Platelet Estimate Adequate Polychromasia 1+ Hypochromasia 1+ Anisocytosis 2+ Macrocytosis 1+ Schistocytes None seen Sodium 140 Potassium 3.5 Chloride 106 Carbon Dioxide 29 Anion Gap 5 BUN 42 H Creatinine 2.50 H Estim Creat Clear Calc 24 Estimated GFR 19 L Glucose 50 L* POC Capillary Glucose 139 H 120 H Lactic Acid 0.7 Calcium 9.3 Magnesium 1.5 L Total Bilirubin 0.9 AST 24 ALT 12 Alkaline Phosphatase 56 Total Protein 7.0 Albumin 3.1 L Quality VTE Prophylaxis VTE prophylaxis: pharmacologic ordered (on rivaroxaban)
--- NOTE | 2024-08-27 11:11 | PCOTNOTE ---
Attempted OT evaluation 1110, Pt getting echo.
[2024-08-27] MEDS: PERFLUTREN LIPID MICROSPHERES 1.5 ML VIAL DILUTED TO 10 ML TOTAL VOLUME IV PUSH (11:50)
[2024-08-27 12:10] LABS: Glucose Point of Care 102 mg/dl (65-105)
--- NOTE | 2024-08-27 12:16 | IVDEFINITY ---
Prior to administration of IV Definity the patient was educated on the risks and benefits of the imaging enhancing agent including potential adverse side effects. The patient verbalized understanding. Allergies were verified. No exclusion criteria were identified and at least one of the following inclusion criteria were met: 1) physician request, 2) patient technically difficult to image (per the [place] [employer] guidelines of two or more segments not discernable within the apical view), or 3) questionable left ventricular function. ?
--- NOTE | 2024-08-27 14:21 | PCOTNOTE ---
Attempted to see pt. for occupational therapy evaluation. pt. declines to participate at this time due to pain
[2024-08-27] MEDS: oxyCODONE/ACETAMINOPHEN (*CRX) 5-325 MG TABLET 1 TABLET PO ×2 (15:08→20:03)
[2024-08-27] MEDS: NITROGLYCERIN OINTMENT 1 INCH DOSE TRANSDERM (15:40)
[2024-08-27 17:25] LABS: Glucose Point of Care 128 mg/dl (65-105)
[2024-08-27] MEDS: traZODone HCL 50 MG TABLET PO (20:02)
[2024-08-27 21:32] LABS: Glucose Point of Care 146 mg/dl (65-105)
--- NOTE | 2024-08-27 23:33 | ECHO_ITS ---
Patient Info Name: Jaida Chew Age: 74 years : 1950 Gender: Female Ht: 64 in Wt: 240 lbs BSA: 2.27 m2 HR: 71 bpm BP: 145 / 62 mmHg Technical Quality: Fair Exam Date: 08/27/2024 11:01 AM Exam Location: Echo Lab Patient Status: Inpatient Admit Date: 08/26/2024 Staff Ordering Physician: Dulce Danielson PA-C [employer] Dust Laborer: Nancy Raygoza RDCS Attending Provider: Kye Cortes MD Referring Physician: Erum KHAN; Exam Type: CA echo doppler color flow Study Info Indications - CHF I48.1 - Persistent atrial fibrillation Complete two-dimensional, color flow and Doppler transthoracic echocardiogram is performed with contrast to opacify the left ventricle and to improve the deliniation of the left ventricle endocardial borders. Contrast/Agitated Saline Contrast/Ag. Saline: Definity Amount: 2.00 ml Administered By: Nancy Raygoza RDCS Existing IV Access: Yes Summary 1. Mitral valve leaflets are sclerotic with mitral annular calcification and restricted motion of posterior leaflet. There is moderate mitral regurgitation, which may be underestimated due to the eccentric nature of the regurgitant jet. 2. The left ventricle is moderately dilated. There is severe eccentric left ventricular hypertrophy. The left ventricular systolic function is normal. The left ventricular EF is visually estimated to be 55-60%. 3. Severe biatrial enlargement. Left Ventricle The left ventricle is moderately dilated. There is severe eccentric left ventricular hypertrophy. The left ventricular systolic function is normal. The left ventricular EF is visually estimated to be 55-60%. Right Ventricle The right ventricle is poorly visualized however in the available views, it appears to be normal size with borderline normal systolic function. Left Atria The left atrium is severely enlarged. Right Atria The right atrium is severely enlarged. Atrial Septum The atrial septum visually appears intact. Aortic Valve The aortic valve is trileaflet and sclerotic, but opens well. Pulmonic Valve The pulmonic valve is not well visualized. There is no color Doppler evidence of pulmonic valve regurgitation. Mitral Valve Mitral valve leaflets are sclerotic with mitral annular calcification and restricted motion of posterior leaflet. There is moderate mitral regurgitation, which may be underestimated due to the eccentric nature of the regurgitant jet. Tricuspid Valve The tricuspid valve grossly appears normal. There is mild tricuspid regurgitation. Pericardium/Pleural Pericardium is normal in appearance with no evidence for significant pericardial effusion. Inferior Vena Cava Inferior vena cava is not well visualized. Aorta The aortic root measures 2.4 cm in diameter. Left Ventricular Outflow Tract Name Value Normal LVOT 2D LVOT Diameter 2.0 cm LVOT Doppler LVOT Peak Gradient 6 mmHg LVOT Mean Gradient 3 mmHg LVOT VTI 24 cm LVOT VTI/AV VTI Ratio 0.7 LVOT Stroke Volume 77 ml LVOT CO 6.5 l/min LVOT CI 2.9 l/min/m2 Pulmonic Valve Name Value Normal RVOT Doppler RVOT Peak Gradient 3 mmHg PV Doppler PV Peak Gradient 7 mmHg Mitral Valve Name Value Normal MV Doppler MV Decel [place] 935 cm/s2 MV PHT 43 ms MV Area (PHT) 5.1 cm2 4.0-5.0 MV Regurgitation Doppler MR Peak Gradient 152 mmHg MV Diastolic Function MV E Peak Velocity 139 cm/s MV A Peak Velocity 0 cm/s MV E/A 305.2 MV Decel Time 149 ms Tricuspid Valve Name Value Normal TV Regurgitation Doppler TR Peak Velocity 321 cm/s TR Peak Gradient 41 mmHg Estimated PAP/RSVP RA Pressure 10 mmHg <=5 PA Systolic Pressure 51 mmHg <36 RV Systolic Pressure 51 mmHg <36 Aorta Name Value Normal Ascending Aorta Ao Root Diameter (MM) 2.4 cm Ao Root Diam Index (MM) 1.1 cm/m2 Aortic Valve Name Value Normal AV Doppler AV Peak Velocity 167 cm/s AV Peak Gradient 9 mmHg AV Mean Gradient 5 mmHg AV VTI 34 cm AV Area (Cont Eq VTI) 2.3 cm2 >=3.0 AV Area (Cont Eq Shay) 2.6 cm2 AV Regurgitation 2D LVOT Area 3.2 cm2 Ventricles Name Value Normal LV Dimensions 2D/MM IVS Diastolic Thickness (2D) 0.9 cm 0.6-1.0 IVS Diastole Thickness (MM) 1.0 cm 0.6-0.9 LVID Diastole (2D) 6.0 cm 3.8-5.2 LVID Diastole (MM) 6.5 cm 3.8-5.2 LVIW Diastolic Thickness (2D) 1.0 cm 0.6-0.9 LVIW Diastolic Thickness (MM) 1.3 cm 0.6-0.9 LVID Systole (2D) 3.8 cm 2.2-3.5 LVID Systole (MM) 3.7 cm 2.2-3.5 LVOT Diameter 2.0 cm LV Mass (2D Cubed) 232.59 g 67.00-162.00 LV Mass Index (2D Cubed) 102 g/m2 43-95 Relative Wall Thickness (2D) 0.33 LV Mass (MM Cubed) 329.10 g 67.00-162.00 LV Mass Index (MM Cubed) 145 g/m2 43-95 Relative Wall Thickness (MM) 0.40 LV Fractional Shortening/Ejection Fraction 2D/MM LV Fractional Shortening (2D) 36 % 27-45 LV Fractional Shortening (MM) 42 % 27-45 LV EF (MM Teicholz) 72 % 54-74 LV EF (2D Teicholz) 65 % 54-74 LV Diastolic Volume (4C MOD) 161 ml LV EF (4C MOD) 62 % LV Diastolic Volume (2C MOD) 180 ml LV EF (2C MOD) 69 % LV Diastolic Volume (BP MOD) 172 ml 46-106 LV Diastolic Volume Index (BP MOD) 75 ml/m2 29-61 LV Systolic Volume (BP MOD) 60 ml 14-42 LV Systolic Volume Index (BP MOD) 26 ml/m2 8-24 LV EF (BP MOD) 65 % 54-74 LV Diastolic Length (4C) 7.8 cm LV Systolic Length (4C) 6.7 cm LV Stroke Volume (4C MOD) 101 ml Atria Name Value Normal LA Dimensions LA Dimension (MM) 7.2 cm 2.7-3.8 LA Volume (4C A-L) 155 ml LA Volume (BP A-L) 159 ml RA Dimensions RA Area (4C) 31.0 cm2 <=18.0 Report Signatures
[2024-08-28] VITALS (11 sets, daily range): BP systolic 162–194; BP diastolic 56–84; PULSE 64–91; RESP 14–20; TEMP 36.2–37.3; O2SAT 92–100
[2024-08-28] MEDS: oxyCODONE/ACETAMINOPHEN (*CRX) 5-325 MG TABLET 1 TABLET PO ×4 (02:31→22:23)
[2024-08-28] MEDS: DOXYCYCLINE HYCLATE 100 MG TABLET PO ×2 (05:23→17:43)
[2024-08-28 05:40] LABS: Basophils Percent Auto 0.2 % (0.2-1.2); Eosinophils Absolute Auto 0.2 K/mm3 (0-0.3); Eosinophils Percent Auto 2.1 % (0-4.4); Hematocrit 35.2 % (37.0-47.0); Hemoglobin 10.5 g/dL (12.0-15.0); Immature Granulocyte Absolute 0.04 K/mm3 (0.00-0.031); Immature Granulocyte Percent A 0.5 % (0-0.5); Lymphocytes Absolute Auto 0.26 K/mm3 (0.9-3.2); Lymphocytes Percent Auto 3.1 % (18.3-44.2); Mean Corpuscular HGB Conc 29.8 g/dl (32-36); Mean Corpuscular Hemoglobin 33.2 pg (26-34); Mean Corpuscular Volume 111.4 fl (80-100); Monocytes Absolute Auto 0.3 K/mm3 (0.1-0.6); Monocytes Percent Auto 3.9 % (2.6-8.5); Neutrophils Absolute Auto 7.6 K/mm3 (1.3-6.7); Neutrophils Percent Auto 90.2 % (45.5-73.1); Nucleated Red Blood Cells Perc 0.2 % (0.0-0.2); Platelet Count Result 190 k/mm3 (150-375); Red Blood Count 3.16 M/mm3 (4.2-5.4); Red Cell Distribution Width 16.5 % (11.5-14.5); White Blood Count 8.5 K/mm3 (4.5-10.0)
[2024-08-28 05:55] LABS: Alanine Aminotransferase 14 U/L (6-35); Albumin Level 3.4 g/dL (3.5-5.1); Alkaline Phosphatase 82 U/L (38-126); Anion Gap 6 mmol/L (4-12); Aspartate Amino Transferase 26 U/L (14-36); Bilirubin,Total 0.9 mg/dL (0.2-1.3); Blood Urea Nitrogen 42 mg/dL (7-17); Calcium 9.4 mg/dL (8.4-10.2); Carbon Dioxide 28 mmol/L (22-30); Chloride 104 mmol/L (98-107); Estimated CRCL calculation 25 ml/min; Estimated Glomerular Filt Rate 20; Glucose 116 mg/dL (65-110); Magnesium 1.6 mg/dL (1.6-2.3); Potassium 4.2 mmol/L (3.4-5.0); Sodium 138 mmol/L (137-145)
[2024-08-28 06:24] LABS: Hypochromasia 1+; Platelet Estimate Adequate (Adequate); Polychromasia 1+
[2024-08-28 06:25] LABS: Anisocytosis 1+; Macrocytosis 2+ (NORMAL); Schistocytes None Seen
[2024-08-28 08:10] LABS: Glucose Point of Care 95 mg/dl (65-105)
[2024-08-28] MEDS: guaiFENesin 12 HR 600 MG TABCR 1200 MG PO ×2 (09:09→20:31)
[2024-08-28] MEDS: ASPIRIN 81 MG ENTERIC TABLET PO (09:09)
[2024-08-28] MEDS: PRAVASTATIN SODIUM 20 MG TABLET 40 MG PO (09:09)
[2024-08-28] MEDS: lisinopriL 10 MG TABLET 30 MG PO (09:10)
[2024-08-28] MEDS: allopurinoL 100 MG TABLET 200 MG PO (09:10)
[2024-08-28] MEDS: amLODIPine BESYLATE 10 MG TABLET PO (09:10)
[2024-08-28] MEDS: FERROUS SULFATE 325 MG TABLET DR BY MOUTH (09:10)
[2024-08-28] MEDS: carvediloL 25 MG TABLET PO ×2 (09:11→20:31)
[2024-08-28] MEDS: FUROSEMIDE INJ 40 MG/4 ML VIAL 20 MG IV PUSH (09:11)
[2024-08-28] MEDS: ACETAMINOPHEN 325 MG TABLET 650 MG PO (10:48)
--- NOTE | 2024-08-28 11:41 | P.PNCA_ITS ---
Progress Note: A&P Assessment and Plan (1) Acute heart failure with preserved ejection fraction (HFpEF, >= 50%): Code(s): I50.31 - Acute diastolic (congestive) heart failure Status: Acute Assessment and Plan: Some evidence of pulmonary vascular congestion is seen. Uncertain if this is related to chronic kidney disease or underlying cardiac issues. Echocardiogram shows LVEF 55-60%, moderate MR, severe biatrial enlargement. Will increase her Lasix IV to 40mg BID (was on 20mg BID). Please monitor strict I/Os. Continue Coreg, Lisinopril. Cannot add Spironolactone due to renal function. Hopefully will be able to transition to PO Lasix in the next 24 to 48 hours. (2) Chronic anticoagulation: Code(s): Z79.01 - [facility] (current) use of anticoagulants Status: Acute Assessment and Plan: Continue Xarelto 15mg once daily. (3) Chronic kidney disease, stage IV (severe): Code(s): N18.4 - Chronic kidney disease, stage 4 (severe) Status: Acute Assessment and Plan: Renal function remains stable. (4) Benign hypertension with chronic kidney disease: Code(s): I12.9 - Hypertensive chronic kidney disease with stage 1 through stage 4 chronic kidney disease, or unspecified chronic kidney disease Status: Acute Assessment and Plan: BP uncontrolled. Continue current meds, will increase Lisinopril to 40mg once daily. (5) Chronic atrial fibrillation: Code(s): I48.20 - Chronic atrial fibrillation, unspecified Status: Acute Assessment and Plan: Continue Xarelto and Coreg. Subjective Date/time seen: 08/28/24 11:41 Interval history: Reason for visit: CHF HPI: Patient is a 74-year-old female who has a history of stroke, atrial fibrillation, chronic anticoagulation, pacemaker implantation, anemia, CINDI, chronic kidney disease, peripheral vascular disease, sick sinus syndrome who presented to hospital because of ?pain from head to toe ?. She also states she has been short breath and more swollen over the past 3-4 weeks. She was short of breath with minimal activity. No chest pain, syncope, presyncope, paroxysmal nocturnal dyspnea, orthopnea, palpitations. BNP was ordered and was significantly elevated and chest x-ray and CT scans were concerning for pulmonary vascular congestion. Cardiology consultation therefore requested. Date of service 08/28: Still feels short of breath at times, however, reports that it is improved since admission. Review of Systems Review of Systems: All systems reviewed & are unremarkable except as noted in HPI and below (HPI) Exam Const: General: no acute distress HENMT: Mouth: Yes moist mucous membranes Eyes: General: appearance normal, both eyes and all related structures Sclera: sclerae normal Resp: Effort & Inspection: normal respiratory effort Auscultation: clear to auscultation bilaterally Cardio: Rate: regular rate Rhythm: regular rhythm Other: Chronic lower extremity Skin: Other: Lower extremities are slightly erythematous, significant dry skin Neuro: Speech: normal speech Psych: Mental Status: mental status grossly normal Affect: normal affect Objective Data Vital Signs Vital Signs: Vital Signs - 24 hr 08/27/24 12:00 08/27/24 12:00 08/27/24 14:35 Temperature 36.6 C 36.3 C L Pulse Rate 69 86 88 Respiratory Rate 18 22 H Blood Pressure 208/108 H Pulse Oximetry 100 99 Oxygen Delivery Fraction of Inspired Oxygen 08/27/24 15:39 08/27/24 16:42 08/27/24 16:00 Temperature Pulse Rate 80 75 Respiratory Rate 18 Blood Pressure 207/85 H 171/72 H Pulse Oximetry 99 Oxygen Delivery Fraction of Inspired Oxygen 08/27/24 20:02 08/27/24 20:00 08/27/24 20:00 Temperature Pulse Rate 72 72 83 Respiratory Rate 18 Blood Pressure Pulse Oximetry 99 Oxygen Delivery Room Air Fraction of Inspired Oxygen 21 08/27/24 20:00 08/27/24 23:39 08/28/24 00:04 Temperature 36.5 C 36.1 C L Pulse Rate 64 81 64 Respiratory Rate 20 16 Blood Pressure 169/92 H 149/87 H Pulse Oximetry 100 98 Oxygen Delivery Fraction of Inspired Oxygen 08/28/24 04:00 08/28/24 04:00 08/28/24 09:06 Temperature 36.6 C 36.2 C L Pulse Rate 81 88 80 Respiratory Rate 20 20 Blood Pressure 162/84 H 180/69 H Pulse Oximetry 92 94 Oxygen Delivery Fraction of Inspired Oxygen 08/28/24 09:11 08/28/24 09:11 08/28/24 09:11 Temperature Pulse Rate 85 78 Respiratory Rate Blood Pressure Pulse Oximetry 94 Oxygen Delivery Room Air Fraction of Inspired Oxygen Intake/Output Intake/Output: Intake & Output 08/25/24 08/26/24 08/27/24 08/28/24 23:59 23:59 23:59 23:59 Intake Total 50 920 1373 420 Output Total 697 288 6680 350 Balance -450 20 -127 70 Meds/Results Medications: Active Medications Generic Name Dose Route Start Last Admin Trade Name Freq PRN Reason Stop Dose Admin Acetaminophen 650 mg 08/26/24 05:33 08/28/24 10:48 Acetaminophen 325 Mg Tablet PO 650 mg Q4H PRN Administration Mild Pain (1-3) or Fever Allopurinol 200 mg 08/26/24 09:00 08/28/24 09:10 Allopurinol 100 Mg Tablet PO 200 mg DAILY KARIME Administration Amlodipine Besylate 10 mg 08/26/24 09:00 08/28/24 09:10 Amlodipine Besylate 10 Mg Tablet PO 10 mg DAILY KARIME Administration Aspirin 81 mg 08/26/24 09:00 08/28/24 09:09 Aspirin 81 Mg Enteric Tablet PO 81 mg DAILY KARIME Administration Carvedilol 25 mg 08/25/24 22:40 08/28/24 09:11 Carvedilol 25 Mg Tablet PO 25 mg Q12HR KARIME Administration Cyclobenzaprine HCl 10 mg 08/25/24 22:36 08/27/24 13:29 Cyclobenzaprine Hcl 10 Mg Tablet PO 10 mg TID PRN Administration muscle spasm Dextrose 12.5 gm 08/25/24 22:39 08/27/24 06:37 Dextrose 50% 25 Gm/50 Ml Syringe IV PUSH 12.5 gm PRN PRN Administration Hypoglycemia Protocol Doxycycline Hyclate 100 mg 08/26/24 06:00 08/28/24 05:23 Doxycycline Hyclate 100 Mg Tablet PO 100 mg Q12H KARIME Administration Ferrous Sulfate 325 mg 08/26/24 09:00 08/28/24 09:10 Ferrous Sulfate [address] BY MOUTH 325 mg DAILY KARIME Administration Furosemide 20 mg 08/26/24 09:00 08/28/24 09:11 Furosemide Inj 40 Mg/4 Ml Vial IV PUSH 20 mg BID KARIME Administration Glucagon 1 mg 08/25/24 22:39 Glucagon For Inj 1 Mg Vial IM PRN PRN Hypoglycemia Protocol Glucose 15 gm 08/25/24 22:39 Glucose Oral Gel 15 Gm Of Glucse In 37.5 Gm Tube PO PRN PRN Hypoglycemia Protocol Guaifenesin 1,200 mg 08/26/24 09:00 08/28/24 09:09 Guaifenesin 12 Hr 600 Mg Tabcr PO 1,200 mg Q12HR KARIME Administration Dextrose 1,000 mls @ 100 mls/hr 08/25/24 22:39 Dextrose 5% 1,000 Ml IVPB PRN PRN Hypoglycemia Protocol Ceftriaxone Sodium 1 gm in 50 mls @ 100 mls/hr 08/25/24 23:00 08/27/24 22:37 Rocephin 1 Gm/Ns 50 Ml IVPB Infused Q24H KARIME Infusion Insulin Aspart 5 units 08/26/24 08:00 08/28/24 09:11 Insulin Aspart (*Bkc) 100 Units/Ml 0.05 units/kg (5 units) Not Given SUB-Q TIDWM [facility] Insulin Glargine 14 units 08/27/24 21:00 08/27/24 21:36 Insulin Glargine (*Bkc) 100 Units/Ml SUB-Q Not Given HS [facility] Lisinopril 30 mg 08/26/24 09:00 08/28/24 09:10 Lisinopril 10 Mg Tablet PO 30 mg DAILY KARIME Administration Oxycodone/Acetaminophen 1 tablet 08/27/24 15:01 08/28/24 02:31 Oxycodone/Acetaminophen (*Crx) 5-325 Mg Tablet PO 1 tablet Q4H PRN Administration Pain Rated 7-10 Pravastatin Sodium 40 mg 08/26/24 09:00 08/28/24 09:09 Pravastatin Sodium 20 Mg Tablet PO 40 mg DAILY KARIME Administration Rivaroxaban 15 mg 08/27/24 17:00 08/27/24 17:21 Rivaroxaban 15 Mg Tablet PO Not Given DAILY@1700 [facility] Trazodone HCl 50 mg 08/26/24 21:00 08/27/24 20:02 Trazodone Hcl 50 Mg Tablet PO 50 mg QHS KARIME Administration Radiology Results: ITS Impressions Chest X-Ray 08/25/24 13:54 IMPRESSION: Cardiomegaly, pulmonary vascular congestion, pulmonary interstitial and subpleural edema and bilateral central and lower lung infiltrates, most likely due to congestive heart failure and pulmonary edema. Additional pneumonia or aspiration are not excluded Chest CT 08/26/24 10:10 IMPRESSION: 1. Mild pulmonary edema. 2. Small pleural effusions. Labs Labs: Laboratory Results - last 24 hr 08/27/24 08/27/24 08/27/24 12:00 16:53 21:20 WBC RBC Hgb Hct MCV MCH MCHC RDW Plt Count MPV Immature Gran % (Auto) Neut % (Auto) Lymph % (Auto) Kings % (Auto) Eos % (Auto) Baso % (Auto) Lymph # (Auto) Kings # (Auto) Eos # (Auto) Baso # (Auto) Abs Immat Gran (auto) Absolute Neuts (auto) Absolute Nucleated RBC Nucleated RBC % Platelet Estimate Polychromasia Hypochromasia Anisocytosis Macrocytosis Schistocytes Sodium Potassium Chloride Carbon Dioxide Anion Gap BUN Creatinine Estim Creat Clear Calc Estimated GFR Glucose POC Capillary Glucose 102 128 H 146 H Calcium Magnesium Total Bilirubin AST ALT Alkaline Phosphatase Total Protein Albumin 08/28/24 08/28/24 05:11 08:07 WBC 8.5 RBC 3.16 L Hgb 10.5 L Hct 35.2 L MCV 111.4 H MCH 33.2 MCHC 29.8 L RDW 16.5 H Plt Count 190 MPV 11.0 H Immature Gran % (Auto) 0.5 Neut % (Auto) 90.2 H Lymph % (Auto) 3.1 L Kings % (Auto) 3.9 Eos % (Auto) 2.1 Baso % (Auto) 0.2 Lymph # (Auto) 0.26 L Kings # (Auto) 0.3 Eos # (Auto) 0.2 Baso # (Auto) 0.0 Abs Immat Gran (auto) 0.04 H Absolute Neuts (auto) 7.6 H Absolute Nucleated RBC 0.020 H Nucleated RBC % 0.2 Platelet Estimate Adequate Polychromasia 1+ Hypochromasia 1+ Anisocytosis 1+ Macrocytosis 2+ Schistocytes None seen Sodium 138 Potassium 4.2 Chloride 104 Carbon Dioxide 28 Anion Gap 6 BUN 42 H Creatinine 2.40 H Estim Creat Clear Calc 25 Estimated GFR 20 L Glucose 116 H POC Capillary Glucose 95 Calcium 9.4 Magnesium 1.6 Total Bilirubin 0.9 AST 26 ALT 14 Alkaline Phosphatase 82 Total Protein 7.0 Albumin 3.4 L
[2024-08-28 11:47] LABS: Glucose Point of Care 176 mg/dl (65-105)
[2024-08-28] MEDS: FUROSEMIDE INJ 40 MG/4 ML VIAL IV PUSH (16:15)
[2024-08-28] MEDS: RIVAROXABAN 15 MG TABLET PO (16:16)
--- NOTE | 2024-08-28 17:06 | PM.IMPN ---
Progress Note: A&P Assessment and Plan (1) Suspected congestive heart failure: Code(s): R09.89 - Other specified symptoms and signs involving the circulatory and respiratory systems Status: Acute (2) Pneumonia: Qualifiers: Laterality: unspecified laterality Lung location: lower lobe of lung Pneumonia type: due to unspecified organism Qualified Code(s): J18.9 - Pneumonia, unspecified organism Code(s): J18.9 - Pneumonia, unspecified organism Status: Acute (3) Chronic kidney disease, stage IV (severe): Code(s): N18.4 - Chronic kidney disease, stage 4 (severe) Status: Acute (4) Chronic atrial fibrillation: Code(s): I48.20 - Chronic atrial fibrillation, unspecified Status: Acute (5) Chronic anticoagulation: Code(s): 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 Status: Acute (6) Essential (primary) hypertension: Code(s): I10 - Essential (primary) hypertension Status: Acute (7) CINDI on CPAP: Code(s): G47.33 - Obstructive sleep apnea (adult) (pediatric); Z99.89 - Dependence on other enabling machines and devices Status: Acute (8) Type 2 diabetes mellitus without complication, with long-term current use of insulin: Code(s): E11.9 - Type 2 diabetes mellitus without complications; 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 Status: Acute Plan CHF exacerbation Leg edema and on 1 liter oxygen, baseline is room air CT chest showed pulm edema continue lasix per cardiology monitor Bilateral leg stasis dermatitis vs cellulitis felt warm to palpation continue Michi/Doxy day 3/ Hypoglycemia BG 50 this morning downgraded lantus to 14 u frmo 16 u continue monitor Pneumonia ruled out CT chest negative for pneumonia however will continue Abx for Cellulitis Chronic atrial fibrillation Xarelto decreased to 15mg nighttime per renal function however it is on hold as patient has Pain clinic appointment tomorrow for steroid injection continue holding CINDI continue CPAP HTN titrate home meds with clinical course DM2 SSi with accucheks, adjust with clinical course Continue lantus @14 u from 16 u monitor DVT prophylaxis on SCDs, Xarelto on hold for outpatient procedure tomorrow Subjective Date/time seen: 08/28/24 17:06 Interval history: Ordered venous Doppler. Patient on Xarelto 15 mg p.o. q.d.. Patient is currently on doxycycline for possible cellulitis/stasis dermatitis bilateral lower extremity. Possible discharge tomorrow Review of Systems Review of Systems: 12 systems were reviewed and are negative except for as per HPI. Exam Narrative: General: Chronically ill-appearing female sitting up in bed in no distress. Weight: 109.1 kg. BMI: 41.3. HEENT: PERRL, EOMI. Sclera anicteric. Slightly pale conjunctiva. Oral mucosa moist. Crowded oropharynx. Neck: Supple. Exam limited due to neck circumference. No obvious jugular venous distention. Respiratory: Mildly tachypneic though she appears in no respiratory distress and is speaking in full sentences. Lung sounds are diminished at the bases with scattered crackles. Cardiovascular: Irregularly irregular rate and rhythm. Soft systolic murmur at the left sternal border. Gastrointestinal: Abdomen is soft, obese, nontender, and nondistended with positive bowel sounds. Skin: Warm. Skin is dry and scaly. Chronic skin changes of the bilateral lower legs due to stasis dermatitis without evidence of infection. Scattered, scaly lesions. Extremities: No cyanosis or clubbing. Bilateral lower extremity edema with some weeping. Neurological: Alert. Cranial nerves 2-12 are grossly intact. No gross focal deficits to casual conversation. Psychiatric: Pleasant and cooperative with normal mood and affect. Judgment and insight intact. Objective Data Vital Signs Vital Signs: Vital Signs - 24 hr 08/27/24 20:02 08/27/24 20:00 08/27/24 20:00 Temperature Pulse Rate 72 72 83 Respiratory Rate 18 Blood Pressure Pulse Oximetry 99 Oxygen Delivery Room Air Oxygen Flow Rate Fraction of Inspired Oxygen 21 08/27/24 20:00 08/27/24 23:39 08/28/24 00:04 Temperature 97.7 F 97.0 F L Pulse Rate 64 81 64 Respiratory Rate 20 16 Blood Pressure 169/92 H 149/87 H Pulse Oximetry 100 98 Oxygen Delivery Oxygen Flow Rate Fraction of Inspired Oxygen 08/28/24 04:00 08/28/24 04:00 08/28/24 09:06 Temperature 97.9 F 97.1 F L Pulse Rate 81 88 80 Respiratory Rate 20 20 Blood Pressure 162/84 H 180/69 H Pulse Oximetry 92 94 Oxygen Delivery Oxygen Flow Rate Fraction of Inspired Oxygen 08/28/24 09:11 08/28/24 09:11 08/28/24 09:11 Temperature Pulse Rate 85 78 Respiratory Rate Blood Pressure Pulse Oximetry 94 Oxygen Delivery Room Air Oxygen Flow Rate Fraction of Inspired Oxygen 08/28/24 10:50 08/28/24 14:37 08/28/24 12:00 Temperature 99.1 F Pulse Rate 69 81 Respiratory Rate 20 Blood Pressure 185/75 H Pulse Oximetry 93 Oxygen Delivery Nasal Cannula Oxygen Flow Rate 2 Fraction of Inspired Oxygen 08/28/24 16:00 Temperature 97.7 F Pulse Rate 72 Respiratory Rate 19 Blood Pressure 112/52 L Pulse Oximetry 100 Oxygen Delivery Oxygen Flow Rate Fraction of Inspired Oxygen Intake/Output Intake/Output: Intake & Output 08/25/24 08/26/24 08/27/24 08/28/24 23:59 23:59 23:59 23:59 Intake Total 50 920 1373 640 Output Total 715 246 3377 350 Balance -450 20 -127 290 Meds/Results Medications: Active Medications Generic Name Dose Route Start Last Admin Trade Name Freq PRN Reason Stop Dose Admin Acetaminophen 650 mg 08/26/24 05:33 08/28/24 10:48 Acetaminophen 325 Mg Tablet PO 650 mg Q4H PRN Administration Mild Pain (1-3) or Fever Allopurinol 200 mg 08/26/24 09:00 08/28/24 09:10 Allopurinol 100 Mg Tablet PO 200 mg DAILY KARIME Administration Amlodipine Besylate 10 mg 08/26/24 09:00 08/28/24 09:10 Amlodipine Besylate 10 Mg Tablet PO 10 mg DAILY KARIME Administration Aspirin 81 mg 08/26/24 09:00 08/28/24 09:09 Aspirin 81 Mg Enteric Tablet PO 81 mg DAILY KARIME Administration Carvedilol 25 mg 08/25/24 22:40 08/28/24 09:11 Carvedilol 25 Mg Tablet PO 25 mg Q12HR KARIME Administration Cyclobenzaprine HCl 10 mg 08/25/24 22:36 08/27/24 13:29 Cyclobenzaprine Hcl 10 Mg Tablet PO 10 mg TID PRN Administration muscle spasm Dextrose 12.5 gm 08/25/24 22:39 08/27/24 06:37 Dextrose 50% 25 Gm/50 Ml Syringe IV PUSH 12.5 gm PRN PRN Administration Hypoglycemia Protocol Doxycycline Hyclate 100 mg 08/26/24 06:00 08/28/24 05:23 Doxycycline Hyclate 100 Mg Tablet PO 09/04/24 06:01 100 mg Q12H KARIME Administration Ferrous Sulfate 325 mg 08/26/24 09:00 08/28/24 09:10 Ferrous Sulfate [address] BY MOUTH 325 mg DAILY KARIME Administration Furosemide 40 mg 08/28/24 17:00 08/28/24 16:15 Furosemide Inj 40 Mg/4 Ml Vial IV PUSH 40 mg BID KARIME Administration Glucagon 1 mg 08/25/24 22:39 Glucagon For Inj 1 Mg Vial IM PRN PRN Hypoglycemia Protocol Glucose 15 gm 08/25/24 22:39 Glucose Oral Gel 15 Gm Of Glucse In 37.5 Gm Tube PO PRN PRN Hypoglycemia Protocol Guaifenesin 1,200 mg 08/26/24 09:00 08/28/24 09:09 Guaifenesin 12 Hr 600 Mg Tabcr PO 1,200 mg Q12HR KARIME Administration Hydralazine HCl 10 mg 08/28/24 15:18 Hydralazine Hcl 20 Mg/Ml Vial IV PUSH Q8H PRN Blood Pressure - High Dextrose 1,000 mls @ 100 mls/hr 08/25/24 22:39 Dextrose 5% 1,000 Ml IVPB PRN PRN Hypoglycemia Protocol Insulin Aspart 5 units 08/26/24 08:00 08/28/24 13:08 Insulin Aspart (*Bkc) 100 Units/Ml 0.05 units/kg (5 units) Not Given SUB-Q TIDWM [facility] Insulin Glargine 14 units 08/27/24 21:00 08/27/24 21:36 Insulin Glargine (*Bkc) 100 Units/Ml SUB-Q Not Given HS [facility] Lisinopril 40 mg 08/29/24 09:00 Lisinopril 20 Mg Tablet PO DAILY KARIME Oxycodone/Acetaminophen 1 tablet 08/27/24 15:01 08/28/24 14:31 Oxycodone/Acetaminophen (*Crx) 5-325 Mg Tablet PO 1 tablet Q4H PRN Administration Pain Rated 7-10 Pravastatin Sodium 40 mg 08/26/24 09:00 08/28/24 09:09 Pravastatin Sodium 20 Mg Tablet PO 40 mg DAILY KARIME Administration Rivaroxaban 15 mg 08/27/24 17:00 08/28/24 16:16 Rivaroxaban 15 Mg Tablet PO 15 mg DAILY@1700 [facility] Administration Trazodone HCl 50 mg 08/26/24 21:00 08/27/24 20:02 Trazodone Hcl 50 Mg Tablet PO 50 mg QHS [facility] Administration Radiology Results: ITS Impressions Chest X-Ray 08/25/24 13:54 IMPRESSION: Cardiomegaly, pulmonary vascular congestion, pulmonary interstitial and subpleural edema and bilateral central and lower lung infiltrates, most likely due to congestive heart failure and pulmonary edema. Additional pneumonia or aspiration are not excluded Chest CT 08/26/24 10:10 IMPRESSION: 1. Mild pulmonary edema. 2. Small pleural effusions. Labs Labs: Laboratory Results - last 24 hr 08/27/24 08/27/24 08/28/24 16:53 21:20 05:11 WBC 8.5 RBC 3.16 L Hgb 10.5 L Hct 35.2 L MCV 111.4 H MCH 33.2 MCHC 29.8 L RDW 16.5 H Plt Count 190 MPV 11.0 H Immature Gran % (Auto) 0.5 Neut % (Auto) 90.2 H Lymph % (Auto) 3.1 L [place] % (Auto) 3.9 Eos % (Auto) 2.1 Baso % (Auto) 0.2 Lymph # (Auto) 0.26 L [place] # (Auto) 0.3 Eos # (Auto) 0.2 Baso # (Auto) 0.0 Abs Immat Gran (auto) 0.04 H Absolute Neuts (auto) 7.6 H Absolute Nucleated RBC 0.020 H Nucleated RBC % 0.2 Platelet Estimate Adequate Polychromasia 1+ Hypochromasia 1+ Anisocytosis 1+ Macrocytosis 2+ Schistocytes None seen Sodium 138 Potassium 4.2 Chloride 104 Carbon Dioxide 28 Anion Gap 6 BUN 42 H Creatinine 2.40 H Estim Creat Clear Calc 25 Estimated GFR 20 L Glucose 116 H POC Capillary Glucose 128 H 146 H Calcium 9.4 Magnesium 1.6 Total Bilirubin 0.9 AST 26 ALT 14 Alkaline Phosphatase 82 Total Protein 7.0 Albumin 3.4 L 08/28/24 08/28/24 08:07 11:44 WBC RBC Hgb Hct MCV MCH MCHC RDW Plt Count MPV Immature Gran % (Auto) Neut % (Auto) Lymph % (Auto) [place] % (Auto) Eos % (Auto) Baso % (Auto) Lymph # (Auto) [place] # (Auto) Eos # (Auto) Baso # (Auto) Abs Immat Gran (auto) Absolute Neuts (auto) Absolute Nucleated RBC Nucleated RBC % Platelet Estimate Polychromasia Hypochromasia Anisocytosis Macrocytosis Schistocytes Sodium Potassium Chloride Carbon Dioxide Anion Gap BUN Creatinine Estim Creat Clear Calc Estimated GFR Glucose POC Capillary Glucose 95 176 H Calcium Magnesium Total Bilirubin AST ALT Alkaline Phosphatase Total Protein Albumin Quality VTE Prophylaxis VTE prophylaxis: pharmacologic ordered (on rivaroxaban) Hospitalist [facility] Advance Care Plan I have confirmed that the patient's Advanced Care Plan is present, code status is documented, or surrogate decision maker is listed in patient medical record.: Yes Medication Reconciliation I have utilized all available resources to obtain, update and review the patients current medications (includes all prescriptions, OTC, herbals, cannabis, and nutritional supplements).: Yes
[2024-08-28 17:32] LABS: Glucose Point of Care 175 mg/dl (65-105)
[2024-08-28] MEDS: hydrALAZINE HCL 20 MG/ML VIAL 10 MG IV PUSH (17:45)
[2024-08-28 18:59] LABS: Glucose Point of Care 200 mg/dl (65-105)
[2024-08-28] MEDS: INSULIN ASPART (*BKC) 100 UNITS/ML SUB-Q (19:00)
[2024-08-28] MEDS: traZODone HCL 50 MG TABLET PO (20:31)
[2024-08-28 20:41] LABS: Glucose Point of Care 152 mg/dl (65-105)
[2024-08-29] VITALS (16 sets, daily range): BP systolic 142–204; BP diastolic 50–100; PULSE 67–94; RESP 14–18; TEMP 36.6–37.1; O2SAT 91–100
[2024-08-29] MEDS: oxyCODONE/ACETAMINOPHEN (*CRX) 5-325 MG TABLET 1 TABLET PO ×4 (02:50→20:30)
[2024-08-29] MEDS: hydrALAZINE HCL 20 MG/ML VIAL 10 MG IV PUSH ×3 (02:51→20:35)
[2024-08-29] MEDS: DOXYCYCLINE HYCLATE 100 MG TABLET PO ×2 (05:21→17:36)
[2024-08-29 07:52] LABS: Glucose Point of Care 147 mg/dl (65-105)
[2024-08-29] MEDS: allopurinoL 100 MG TABLET 200 MG PO (08:27)
[2024-08-29] MEDS: amLODIPine BESYLATE 10 MG TABLET PO (08:27)
[2024-08-29] MEDS: FERROUS SULFATE 325 MG TABLET DR BY MOUTH (08:27)
[2024-08-29] MEDS: guaiFENesin 12 HR 600 MG TABCR 1200 MG PO ×2 (08:27→20:31)
[2024-08-29] MEDS: ASPIRIN 81 MG ENTERIC TABLET PO (08:27)
[2024-08-29] MEDS: lisinopriL 20 MG TABLET 40 MG PO (08:28)
[2024-08-29] MEDS: carvediloL 25 MG TABLET PO ×2 (08:28→20:31)
[2024-08-29] MEDS: FUROSEMIDE INJ 40 MG/4 ML VIAL IV PUSH (08:29)
[2024-08-29] MEDS: PRAVASTATIN SODIUM 20 MG TABLET 40 MG PO (08:29)
[2024-08-29 08:35] LABS: Hematocrit 33.3 % (37.0-47.0); Hemoglobin 10.3 g/dL (12.0-15.0); Mean Corpuscular HGB Conc 30.9 g/dl (32-36); Mean Corpuscular Hemoglobin 33.4 pg (26-34); Mean Corpuscular Volume 108.1 fl (80-100); Mean Platelet Volume 10.7 fl (7.4-10.4); Platelet Count Result 208 k/mm3 (150-375); Red Blood Count 3.08 M/mm3 (4.2-5.4); White Blood Count 10.6 K/mm3 (4.5-10.0)
[2024-08-29 08:43] LABS: Alanine Aminotransferase 16 U/L (6-35); Albumin Level 3.3 g/dL (3.5-5.1); Alkaline Phosphatase 71 U/L (38-126); Anion Gap 9 mmol/L (4-12); Aspartate Amino Transferase 28 U/L (14-36); Bilirubin,Total 1.1 mg/dL (0.2-1.3); Blood Urea Nitrogen 43 mg/dL (7-17); Calcium 9.6 mg/dL (8.4-10.2); Carbon Dioxide 28 mmol/L (22-30); Chloride 101 mmol/L (98-107); Estimated CRCL calculation 23 ml/min; Estimated Glomerular Filt Rate 20; Glucose 164 mg/dL (65-110); Potassium 3.7 mmol/L (3.4-5.0); Sodium 138 mmol/L (137-145)
[2024-08-29] MEDS: INSULIN ASPART (*BKC) 100 UNITS/ML SUB-Q ×2 (08:43→17:44)
[2024-08-29] MEDS: ONDANSETRON HCL ODT 4 MG TABLET PO ×2 (11:09→17:56)
[2024-08-29 12:01] LABS: Glucose Point of Care 95 mg/dl (65-105)
--- NOTE | 2024-08-29 15:14 | PCPTNOTE ---
Attempted to see patient for PT, however patient declined due to feeling nauseous and unwell.
--- NOTE | 2024-08-29 15:16 | PM.IMPN ---
Progress Note: A&P Assessment and Plan (1) Suspected congestive heart failure: Code(s): R09.89 - Other specified symptoms and signs involving the circulatory and respiratory systems Status: Acute (2) Pneumonia: Qualifiers: Laterality: unspecified laterality Lung location: lower lobe of lung Pneumonia type: due to unspecified organism Qualified Code(s): J18.9 - Pneumonia, unspecified organism Code(s): J18.9 - Pneumonia, unspecified organism Status: Acute (3) Chronic kidney disease, stage IV (severe): Code(s): N18.4 - Chronic kidney disease, stage 4 (severe) Status: Acute (4) Chronic atrial fibrillation: Code(s): I48.20 - Chronic atrial fibrillation, unspecified Status: Acute (5) Chronic anticoagulation: Code(s): 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 Status: Acute (6) Essential (primary) hypertension: Code(s): I10 - Essential (primary) hypertension Status: Acute (7) CINDI on CPAP: Code(s): G47.33 - Obstructive sleep apnea (adult) (pediatric); Z99.89 - Dependence on other enabling machines and devices Status: Acute (8) Type 2 diabetes mellitus without complication, with long-term current use of insulin: Code(s): E11.9 - Type 2 diabetes mellitus without complications; 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 Status: Acute Plan CHF exacerbation Leg edema and on 1 liter oxygen, baseline is room air CT chest showed pulm edema continue lasix per cardiology monitor Bilateral leg stasis dermatitis vs cellulitis felt warm to palpation continue doxycycline until 09/04 Hypoglycemia BG 50 on 08/27 downgraded lantus to 14 u frmo 16 u continue monitor Pneumonia ruled out CT chest negative for pneumonia however will continue Abx for Cellulitis Chronic atrial fibrillation Xarelto decreased to 15mg nighttime per renal function CINDI continue CPAP HTN titrate home meds with clinical course DM2 SSi with accucheks, adjust with clinical course Continue lantus @14 u from 16 u monitor DVT prophylaxis on SCDs, Xarelto on hold for outpatient procedure tomorrow Subjective Date/time seen: 08/29/24 15:16 Interval history: Patient is experiencing nausea given Zofran. Ultrasound of the lower extremity resulted negative. Review of Systems Review of Systems: 12 systems were reviewed and are negative except for as per HPI. Exam Narrative: General: Chronically ill-appearing female sitting up in bed in no distress. Weight: 109.1 kg. BMI: 41.3. HEENT: PERRL, EOMI. Sclera anicteric. Slightly pale conjunctiva. Oral mucosa moist. Crowded oropharynx. Neck: Supple. Exam limited due to neck circumference. No obvious jugular venous distention. Respiratory: Mildly tachypneic though she appears in no respiratory distress and is speaking in full sentences. Lung sounds are diminished at the bases with scattered crackles. Cardiovascular: Irregularly irregular rate and rhythm. Soft systolic murmur at the left sternal border. Gastrointestinal: Abdomen is soft, obese, nontender, and nondistended with positive bowel sounds. Skin: Warm. Skin is dry and scaly. Chronic skin changes of the bilateral lower legs due to stasis dermatitis without evidence of infection. Scattered, scaly lesions. Extremities: No cyanosis or clubbing. Bilateral lower extremity edema with some weeping. Neurological: Alert. Cranial nerves 2-12 are grossly intact. No gross focal deficits to casual conversation. Psychiatric: Pleasant and cooperative with normal mood and affect. Judgment and insight intact. Objective Data Vital Signs Vital Signs: Vital Signs - 24 hr 08/28/24 16:00 08/28/24 16:00 08/28/24 18:26 Temperature 97.7 F Pulse Rate 72 82 Respiratory Rate 19 Blood Pressure 172/56 H 171/62 H Pulse Oximetry 100 Oxygen Delivery Oxygen Flow Rate Fraction of Inspired Oxygen 08/28/24 20:31 08/28/24 20:00 08/28/24 20:30 Temperature 98.3 F Pulse Rate 78 91 78 Respiratory Rate 14 14 Blood Pressure 194/61 H Pulse Oximetry 94 98 Oxygen Delivery Nasal Cannula Oxygen Flow Rate 2 Fraction of Inspired Oxygen 21 08/28/24 20:00 08/29/24 00:00 08/29/24 00:04 Temperature 98.7 F Pulse Rate 81 72 72 Respiratory Rate 14 Blood Pressure 180/68 H Pulse Oximetry 91 Oxygen Delivery Oxygen Flow Rate Fraction of Inspired Oxygen 08/29/24 04:56 08/29/24 04:00 08/29/24 07:53 Temperature 98.4 F Pulse Rate 86 92 Respiratory Rate 16 Blood Pressure 167/50 H Pulse Oximetry 91 92 Oxygen Delivery Room Air Oxygen Flow Rate Fraction of Inspired Oxygen 21 08/29/24 08:28 08/29/24 08:00 08/29/24 08:25 Temperature 98.3 F Pulse Rate 87 67 87 Respiratory Rate 16 Blood Pressure 175/63 H Pulse Oximetry 98 Oxygen Delivery Oxygen Flow Rate Fraction of Inspired Oxygen 08/29/24 12:48 08/29/24 12:00 08/29/24 14:55 Temperature 98.1 F Pulse Rate 91 89 86 Respiratory Rate 18 Blood Pressure 200/98 H 204/67 H Pulse Oximetry 100 Oxygen Delivery Oxygen Flow Rate Fraction of Inspired Oxygen Intake/Output Intake/Output: Intake & Output 08/26/24 08/27/24 08/28/24 08/29/24 23:59 23:59 23:59 23:59 Intake Total 920 1373 1430 365 Output Total 900 1500 950 950 Balance 20 -851 798 -098 Meds/Results Medications: Active Medications Generic Name Dose Route Start Last Admin Trade Name Freq PRN Reason Stop Dose Admin Acetaminophen 650 mg 08/26/24 05:33 08/28/24 10:48 Acetaminophen 325 Mg Tablet PO 650 mg Q4H PRN Administration Mild Pain (1-3) or Fever Allopurinol 200 mg 08/26/24 09:00 08/29/24 08:27 Allopurinol 100 Mg Tablet PO 200 mg DAILY KARIME Administration Amlodipine Besylate 10 mg 08/26/24 09:00 08/29/24 08:27 Amlodipine Besylate 10 Mg Tablet PO 10 mg DAILY KARIME Administration Aspirin 81 mg 08/26/24 09:00 08/29/24 08:27 Aspirin 81 Mg Enteric Tablet PO 81 mg DAILY KARIME Administration Carvedilol 25 mg 08/25/24 22:40 08/29/24 08:28 Carvedilol 25 Mg Tablet PO 25 mg Q12HR KARIME Administration Cyclobenzaprine HCl 10 mg 08/25/24 22:36 08/27/24 13:29 Cyclobenzaprine Hcl 10 Mg Tablet PO 10 mg TID PRN Administration muscle spasm Dextrose 12.5 gm 08/25/24 22:39 08/27/24 06:37 Dextrose 50% 25 Gm/50 Ml Syringe IV PUSH 12.5 gm PRN PRN Administration Hypoglycemia Protocol Doxycycline Hyclate 100 mg 08/26/24 06:00 08/29/24 05:21 Doxycycline Hyclate 100 Mg Tablet PO 09/04/24 06:01 100 mg Q12H KARIME Administration Ferrous Sulfate 325 mg 08/26/24 09:00 08/29/24 08:27 Ferrous Sulfate [address] BY MOUTH 325 mg DAILY KARIME Administration Furosemide 40 mg 08/29/24 09:00 08/29/24 10:57 Furosemide 40 Mg Tablet PO Not Given BID KARIME Glucagon 1 mg 08/25/24 22:39 Glucagon For Inj 1 Mg Vial IM PRN PRN Hypoglycemia Protocol Glucose 15 gm 08/25/24 22:39 Glucose Oral Gel 15 Gm Of Glucse In 37.5 Gm Tube PO PRN PRN Hypoglycemia Protocol Guaifenesin 1,200 mg 08/26/24 09:00 08/29/24 08:27 Guaifenesin 12 Hr 600 Mg Tabcr PO 1,200 mg Q12HR KARIME Administration Hydralazine HCl 10 mg 08/28/24 15:18 08/29/24 12:53 Hydralazine Hcl 20 Mg/Ml Vial IV PUSH 10 mg Q8H PRN Administration Blood Pressure - High Dextrose 1,000 mls @ 100 mls/hr 08/25/24 22:39 Dextrose 5% 1,000 Ml IVPB PRN PRN Hypoglycemia Protocol Insulin Aspart 5 units 08/26/24 08:00 08/29/24 12:15 Insulin Aspart (*Bkc) 100 Units/Ml 0.05 units/kg (5 units) Not Given SUB-Q TIDWM [facility] Insulin Glargine 14 units 08/27/24 21:00 08/28/24 20:48 Insulin Glargine (*Bkc) 100 Units/Ml SUB-Q Not Given HS [facility] Lisinopril 40 mg 08/29/24 09:00 08/29/24 08:28 Lisinopril 20 Mg Tablet PO 40 mg DAILY KARIME Administration Ondansetron HCl 4 mg 08/29/24 10:55 08/29/24 11:09 Ondansetron Hcl Odt 4 Mg Tablet PO 4 mg Q6H PRN Administration Nausea And Vomiting Oxycodone/Acetaminophen 1 tablet 08/27/24 15:01 08/29/24 12:49 Oxycodone/Acetaminophen (*Crx) 5-325 Mg Tablet PO 1 tablet Q4H PRN Administration Pain Rated 7-10 Pravastatin Sodium 40 mg 08/26/24 09:00 08/29/24 08:29 Pravastatin Sodium 20 Mg Tablet PO 40 mg DAILY KARIME Administration Rivaroxaban 15 mg 08/27/24 17:00 08/28/24 16:16 Rivaroxaban 15 Mg Tablet PO 15 mg DAILY@1700 KARIME Administration Trazodone HCl 50 mg 08/26/24 21:00 08/28/24 20:31 Trazodone Hcl 50 Mg Tablet PO 50 mg QHS KARIME Administration Radiology Results: ITS Impressions Chest X-Ray 08/25/24 13:54 IMPRESSION: Cardiomegaly, pulmonary vascular congestion, pulmonary interstitial and subpleural edema and bilateral central and lower lung infiltrates, most likely due to congestive heart failure and pulmonary edema. Additional pneumonia or aspiration are not excluded Chest CT 08/26/24 10:10 IMPRESSION: 1. Mild pulmonary edema. 2. Small pleural effusions. Venous Doppler Study 08/28/24 22:00 IMPRESSION: Negative bilateral lower extremity venous US. No deep vein thrombosis. Labs Labs: Laboratory Results - last 24 hr 08/28/24 08/28/24 08/28/24 17:27 18:57 19:45 WBC RBC Hgb Hct MCV MCH MCHC RDW Plt Count MPV Sodium Potassium Chloride Carbon Dioxide Anion Gap BUN Creatinine Estim Creat Clear Calc Estimated GFR Glucose POC Capillary Glucose 175 H 200 H 152 H Calcium Total Bilirubin AST ALT Alkaline Phosphatase Total Protein Albumin 08/29/24 08/29/24 08/29/24 07:30 08:17 11:56 WBC 10.6 H RBC 3.08 L Hgb 10.3 L Hct 33.3 L MCV 108.1 H MCH 33.4 MCHC 30.9 L RDW 16.0 H Plt Count 208 MPV 10.7 H Sodium 138 Potassium 3.7 Chloride 101 Carbon Dioxide 28 Anion Gap 9 BUN 43 H Creatinine 2.40 H Estim Creat Clear Calc 23 Estimated GFR 20 L Glucose 164 H POC Capillary Glucose 147 H 95 Calcium 9.6 Total Bilirubin 1.1 AST 28 ALT 16 Alkaline Phosphatase 71 Total Protein 7.0 Albumin 3.3 L Quality VTE Prophylaxis VTE prophylaxis: pharmacologic ordered (on rivaroxaban) Hospitalist [facility] Advance Care Plan I have confirmed that the patient's Advanced Care Plan is present, code status is documented, or surrogate decision maker is listed in patient medical record.: Yes Medication Reconciliation I have utilized all available resources to obtain, update and review the patients current medications (includes all prescriptions, OTC, herbals, cannabis, and nutritional supplements).: Yes
[2024-08-29 16:38] LABS: Glucose Point of Care 135 mg/dl (65-105)
[2024-08-29] MEDS: FUROSEMIDE 40 MG TABLET PO (17:35)
[2024-08-29] MEDS: RIVAROXABAN 15 MG TABLET PO (17:38)
[2024-08-29 18:14] LABS: Mycoplasma IgM Antibody Titer 61 U/mL
[2024-08-29 18:58] LABS: Pneumococcal Antigen Urine NOT DETECTED
[2024-08-29] MEDS: traZODone HCL 50 MG TABLET PO (20:32)
[2024-08-29 20:59] LABS: Glucose Point of Care 164 mg/dl (65-105)
[2024-08-29] MEDS: MORPHINE SULFATE (*CRX) 2 MG/ML INJ IV PUSH (21:57)
[2024-08-29] MEDS: INSULIN GLARGINE (*BKC) 100 UNITS/ML 7 UNITS SUB-Q (21:57)
[2024-08-30] VITALS (12 sets, daily range): BP systolic 102–187; BP diastolic 53–95; PULSE 57–96; RESP 18–20; TEMP 36.6–36.9; O2SAT 92–99
[2024-08-30] MEDS: oxyCODONE/ACETAMINOPHEN (*CRX) 5-325 MG TABLET 1 TABLET PO ×4 (00:53→20:17)
[2024-08-30] MEDS: hydrALAZINE HCL 50 MG TABLET PO ×5 (01:24→23:49)
[2024-08-30] MEDS: DOXYCYCLINE HYCLATE 100 MG TABLET PO ×2 (05:36→17:38)
[2024-08-30 05:57] LABS: Hematocrit 31.7 % (37.0-47.0); Hemoglobin 9.9 g/dL (12.0-15.0); Mean Corpuscular HGB Conc 31.2 g/dl (32-36); Mean Corpuscular Hemoglobin 33.4 pg (26-34); Mean Corpuscular Volume 107.1 fl (80-100); Mean Platelet Volume 10.6 fl (7.4-10.4); Platelet Count Result 213 k/mm3 (150-375); Red Blood Count 2.96 M/mm3 (4.2-5.4); Red Cell Distribution Width 16.1 % (11.5-14.5); White Blood Count 11.8 K/mm3 (4.5-10.0)
[2024-08-30 06:10] LABS: Alanine Aminotransferase 17 U/L (6-35); Alkaline Phosphatase 72 U/L (38-126); Anion Gap 4 mmol/L (4-12); Aspartate Amino Transferase 34 U/L (14-36); Blood Urea Nitrogen 48 mg/dL (7-17); Calcium 9.6 mg/dL (8.4-10.2); Carbon Dioxide 33 mmol/L (22-30); Chloride 100 mmol/L (98-107); Estimated CRCL calculation 24 ml/min; Estimated Glomerular Filt Rate 21; Glucose 98 mg/dL (65-110); Potassium 4.1 mmol/L (3.4-5.0); Sodium 137 mmol/L (137-145)
[2024-08-30 07:38] LABS: Glucose Point of Care 101 mg/dl (65-105)
[2024-08-30] MEDS: allopurinoL 100 MG TABLET 200 MG PO (08:17)
[2024-08-30] MEDS: FERROUS SULFATE 325 MG TABLET DR BY MOUTH (08:17)
[2024-08-30] MEDS: ASPIRIN 81 MG ENTERIC TABLET PO (08:17)
[2024-08-30] MEDS: carvediloL 25 MG TABLET PO ×2 (08:17→20:16)
[2024-08-30] MEDS: amLODIPine BESYLATE 10 MG TABLET PO (08:17)
[2024-08-30] MEDS: guaiFENesin 12 HR 600 MG TABCR 1200 MG PO ×2 (08:17→20:16)
[2024-08-30] MEDS: FUROSEMIDE 40 MG TABLET PO ×2 (08:17→16:20)
[2024-08-30] MEDS: lisinopriL 20 MG TABLET 40 MG PO (08:18)
[2024-08-30] MEDS: PRAVASTATIN SODIUM 20 MG TABLET 40 MG PO (08:18)
[2024-08-30 11:48] LABS: Glucose Point of Care 118 mg/dl (65-105)
--- NOTE | 2024-08-30 13:02 | P.PNIM_ITS ---
Progress Note: A&P Assessment and Plan (1) Suspected congestive heart failure: Code(s): R09.89 - Other specified symptoms and signs involving the circulatory and respiratory systems Status: Acute (2) Pneumonia: Qualifiers: Laterality: unspecified laterality Lung location: lower lobe of lung Pneumonia type: due to unspecified organism Qualified Code(s): J18.9 - Pneumonia, unspecified organism Code(s): J18.9 - Pneumonia, unspecified organism Status: Acute (3) Chronic kidney disease, stage IV (severe): Code(s): N18.4 - Chronic kidney disease, stage 4 (severe) Status: Acute (4) Chronic atrial fibrillation: Code(s): I48.20 - Chronic atrial fibrillation, unspecified Status: Acute (5) Chronic anticoagulation: Code(s): Z79.01 - [employer] (current) use of anticoagulants Status: Acute (6) Essential (primary) hypertension: Code(s): I10 - Essential (primary) hypertension Status: Acute (7) CINDI on CPAP: Code(s): G47.33 - Obstructive sleep apnea (adult) (pediatric); Z99.89 - Dependence on other enabling machines and devices Status: Acute (8) Type 2 diabetes mellitus without complication, with long-term current use of insulin: Code(s): E11.9 - Type 2 diabetes mellitus without complications; Z79.4 - [employer]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 Status: Acute Plan CHF exacerbation Leg edema and on 1 liter oxygen, baseline is room air CT chest showed pulm edema continue lasix per cardiology Continue Coreg and lisinopril Cannot add spironolactone due to renal function monitor I and Os Bilateral leg stasis dermatitis vs cellulitis felt warm to palpation continue doxycycline until 09/04 Hypoglycemia BG 50 on 08/27 downgraded lantus to 14 u frmo 16 u continue monitor Pneumonia ruled out CT chest negative for pneumonia however will continue Abx for Cellulitis Chronic atrial fibrillation Xarelto decreased to 15mg nighttime per renal function CINDI continue CPAP HTN titrate home meds with clinical course DM2 SSi with accucheks, adjust with clinical course Continue lantus @14 u from 16 u monitor DVT prophylaxis on SCDs, Xarelto on hold for outpatient procedure tomorrow Subjective Date/time seen: 08/30/24 13:02 Interval history: No acute events overnight.Pending placement Review of Systems Review of Systems: 12 systems were reviewed and are negativ e except for as per HPI. Exam Narrative: General: Chronically ill-appearing female sitting up in bed in no distress. Weight: 109.1 kg. BMI: 41.3. HEENT: PERRL, EOMI. Sclera anicteric. Slightly pale conjunctiva. Oral mucosa moist. Crowded oropharynx. Neck: Supple. Exam limited due to neck circumference. No obvious jugular venous distention. Respiratory: Mildly tachypneic though she appears in no respiratory distress and is speaking in full sentences. Lung sounds are diminished at the bases with scattered crackles. Cardiovascular: Irregularly irregular rate and rhythm. Soft systolic murmur at the left sternal border. Gastrointestinal: Abdomen is soft, obese, nontender, and nondistended with positive bowel sounds. Skin: Warm. Skin is dry and scaly. Chronic skin changes of the bilateral lower legs due to stasis dermatitis without evidence of infection. Scattered, scaly lesions. Extremities: No cyanosis or clubbing. Bilateral lower extremity edema with some weeping. Neurological: Alert. Cranial nerves 2-12 are grossly intact. No gross focal deficits to casual conversation. Psychiatric: Pleasant and cooperative with normal mood and affect. Judgment and insight intact. Objective Data Vital Signs Vital Signs: Vital Signs - 24 hr 08/29/24 14:55 08/29/24 16:00 08/29/24 16:00 Temperature 98.1 F 98.0 F Pulse Rate 86 94 92 Respiratory Rate 18 18 Blood Pressure 204/67 H 167/77 H Pulse Oximetry 100 93 Oxygen Delivery Fraction of Inspired Oxygen 08/29/24 20:31 08/29/24 20:00 08/29/24 21:25 Temperature 98 F Pulse Rate 87 74 Respiratory Rate 18 Blood Pressure 175/55 H 142/100 H Pulse Oximetry 92 Oxygen Delivery Fraction of Inspired Oxygen 08/29/24 20:30 08/29/24 20:00 08/30/24 00:04 Temperature Pulse Rate 87 83 81 Respiratory Rate 18 Blood Pressure Pulse Oximetry 92 Oxygen Delivery Room Air Fraction of Inspired Oxygen 21 08/30/24 00:00 08/30/24 04:00 08/30/24 04:00 Temperature 98.2 F 98.4 F Pulse Rate 79 89 90 Respiratory Rate 20 18 Blood Pressure 180/71 H 158/60 H Pulse Oximetry 92 99 Oxygen Delivery Fraction of Inspired Oxygen 08/30/24 08:00 08/30/24 08:17 08/30/24 08:18 Temperature 97.9 F Pulse Rate 92 96 Respiratory Rate 18 18 Blood Pressure 164/95 H Pulse Oximetry 94 94 Oxygen Delivery Room Air Fraction of Inspired Oxygen 08/30/24 08:00 08/30/24 12:01 Temperature Pulse Rate 88 78 Respiratory Rate Blood Pressure Pulse Oximetry Oxygen Delivery Fraction of Inspired Oxygen Intake/Output Intake/Output: Intake & Output 08/27/24 08/28/24 08/29/24 08/30/24 23:59 23:59 23:59 23:59 Intake Total 1373 1430 485 475 Output Total 1500 950 950 300 Balance -127 480 -465 175 Meds/Results Medications: Active Medications Generic Name Dose Route Start Last Admin Trade Name Freq PRN Reason Stop Dose Admin Acetaminophen 650 mg 08/26/24 05:33 08/28/24 10:48 Acetaminophen 325 Mg Tablet PO 650 mg Q4H PRN Administration Mild Pain (1-3) or Fever Allopurinol 200 mg 08/26/24 09:00 08/30/24 08:17 Allopurinol 100 Mg Tablet PO 200 mg DAILY KARIME Administration Amlodipine Besylate 10 mg 08/26/24 09:00 08/30/24 08:17 Amlodipine Besylate 10 Mg Tablet PO 10 mg DAILY KARIME Administration Aspirin 81 mg 08/26/24 09:00 08/30/24 08:17 Aspirin 81 Mg Enteric Tablet PO 81 mg DAILY KARIME Administration Carvedilol 25 mg 08/25/24 22:40 08/30/24 08:17 Carvedilol 25 Mg Tablet PO 25 mg Q12HR KARIME Administration Cyclobenzaprine HCl 10 mg 08/25/24 22:36 08/27/24 13:29 Cyclobenzaprine Hcl 10 Mg Tablet PO 10 mg TID PRN Administration muscle spasm Dextrose 12.5 gm 08/25/24 22:39 08/27/24 06:37 Dextrose 50% 25 Gm/50 Ml Syringe IV PUSH 12.5 gm PRN PRN Administration Hypoglycemia Protocol Doxycycline Hyclate 100 mg 08/26/24 06:00 08/30/24 05:36 Doxycycline Hyclate 100 Mg Tablet PO 09/04/24 06:01 100 mg Q12H KARIME Administration Ferrous Sulfate 325 mg 08/26/24 09:00 08/30/24 08:17 Ferrous Sulfate [address] BY MOUTH 325 mg DAILY KARIME Administration Furosemide 40 mg 08/29/24 09:00 08/30/24 08:17 Furosemide 40 Mg Tablet PO 40 mg BID KARIME Administration Glucagon 1 mg 08/25/24 22:39 Glucagon For Inj 1 Mg Vial IM PRN PRN Hypoglycemia Protocol Glucose 15 gm 08/25/24 22:39 Glucose Oral Gel 15 Gm Of Glucse In 37.5 Gm Tube PO PRN PRN Hypoglycemia Protocol Guaifenesin 1,200 mg 08/26/24 09:00 08/30/24 08:17 Guaifenesin 12 Hr 600 Mg Tabcr PO 1,200 mg Q12HR KARIME Administration Hydralazine HCl 10 mg 08/28/24 15:18 08/29/24 20:35 Hydralazine Hcl 20 Mg/Ml Vial IV PUSH 10 mg Q8H PRN Administration Blood Pressure - High Hydralazine HCl 50 mg 08/30/24 01:00 08/30/24 12:02 Hydralazine Hcl 50 Mg Tablet PO 50 mg Q6HR KARIME Administration Dextrose 1,000 mls @ 100 mls/hr 08/25/24 22:39 Dextrose 5% 1,000 Ml IVPB PRN PRN Hypoglycemia Protocol Insulin Aspart 5 units 08/26/24 08:00 08/30/24 11:49 Insulin Aspart (*Bkc) 100 Units/Ml 0.05 units/kg (5 units) Not Given SUB-Q TIDWM [facility] Insulin Glargine 14 units 08/27/24 21:00 08/29/24 21:42 Insulin Glargine (*Bkc) 100 Units/Ml SUB-Q Not Given HS [facility] Lisinopril 40 mg 08/29/24 09:00 08/30/24 08:18 Lisinopril 20 Mg Tablet PO 40 mg DAILY KARIME Administration Morphine Sulfate 2 mg 08/30/24 10:05 Morphine Sulfate (*Crx) 2 Mg/Ml Inj IV PUSH Q6H PRN Pain Rated 7-10 Ondansetron HCl 4 mg 08/29/24 10:55 08/29/24 17:56 Ondansetron Hcl Odt 4 Mg Tablet PO 4 mg Q6H PRN Administration Nausea And Vomiting Oxycodone/Acetaminophen 1 tablet 08/27/24 15:01 08/30/24 08:16 Oxycodone/Acetaminophen (*Crx) 5-325 Mg Tablet PO 1 tablet Q4H PRN Administration Pain Rated 7-10 Pravastatin Sodium 40 mg 08/26/24 09:00 08/30/24 08:18 Pravastatin Sodium 20 Mg Tablet PO 40 mg DAILY KARIME Administration Rivaroxaban 15 mg 08/27/24 17:00 08/29/24 17:38 Rivaroxaban 15 Mg Tablet PO 15 mg DAILY@1700 KARIME Administration Trazodone HCl 50 mg 08/26/24 21:00 08/29/24 20:32 Trazodone Hcl 50 Mg Tablet PO 50 mg QHS KARIME Administration Radiology Results: ITS Impressions Chest X-Ray 08/25/24 13:54 IMPRESSION: Cardiomegaly, pulmonary vascular congestion, pulmonary interstitial and subpleural edema and bilateral central and lower lung infiltrates, most likely due to congestive heart failure and pulmonary edema. Additional pneumonia or aspiration are not excluded Chest CT 08/26/24 10:10 IMPRESSION: 1. Mild pulmonary edema. 2. Small pleural effusions. Venous Doppler Study 08/28/24 22:00 IMPRESSION: Negative bilateral lower extremity venous US. No deep vein thrombosis. Labs Labs: Laboratory Results - last 24 hr 08/25/24 08/25/24 08/29/24 22:50 23:49 16:34 WBC RBC Hgb Hct MCV MCH MCHC RDW Plt Count MPV Sodium Potassium Chloride Carbon Dioxide Anion Gap BUN Creatinine Estim Creat Clear Calc Estimated GFR Glucose POC Capillary Glucose 135 H Calcium Total Bilirubin AST ALT Alkaline Phosphatase Total Protein Albumin Mycoplasma pneumon IgM 61 Urine Pneumococcal Ag Not detected 08/29/24 08/30/24 08/30/24 20:26 05:51 07:34 WBC 11.8 H RBC 2.96 L Hgb 9.9 L Hct 31.7 L MCV 107.1 H MCH 33.4 MCHC 31.2 L RDW 16.1 H Plt Count 213 MPV 10.6 H Sodium 137 Potassium 4.1 Chloride 100 Carbon Dioxide 33 H Anion Gap 4 BUN 48 H Creatinine 2.30 H Estim Creat Clear Calc 24 Estimated GFR 21 L Glucose 98 POC Capillary Glucose 164 H 101 Calcium 9.6 Total Bilirubin 1.0 AST 34 ALT 17 Alkaline Phosphatase 72 Total Protein 7.0 Albumin 3.0 L Mycoplasma pneumon IgM Urine Pneumococcal Ag 08/30/24 11:43 WBC RBC Hgb Hct MCV MCH MCHC RDW Plt Count MPV Sodium Potassium Chloride Carbon Dioxide Anion Gap BUN Creatinine Estim Creat Clear Calc Estimated GFR Glucose POC Capillary Glucose 118 H Calcium Total Bilirubin AST ALT Alkaline Phosphatase Total Protein Albumin Mycoplasma pneumon IgM Urine Pneumococcal Ag Quality VTE Prophylaxis VTE prophylaxis: pharmacologic ordered (on rivaroxaban) Hospitalist MIPS Advance Care Plan I have confirmed that the patient's Advanced Care Plan is present, code status is documented, or surrogate decision maker is listed in patient medical record.: Yes Medication Reconciliation I have utilized all available resources to obtain, update and review the patients current medications (includes all prescriptions, OTC, herbals, cannabis, and nutritional supplements).: Yes
[2024-08-30] MEDS: RIVAROXABAN 15 MG TABLET PO (16:20)
[2024-08-30 17:18] LABS: Glucose Point of Care 146 mg/dl (65-105)
[2024-08-30] MEDS: traZODone HCL 50 MG TABLET PO (20:16)
[2024-08-30] MEDS: ONDANSETRON HCL ODT 4 MG TABLET PO (20:22)
[2024-08-30] MEDS: INSULIN GLARGINE (*BKC) 100 UNITS/ML 14 UNITS SUB-Q (20:58)
[2024-08-30 21:06] LABS: Glucose Point of Care 122 mg/dl (65-105)
[2024-08-31] VITALS (8 sets, daily range): BP systolic 127–158; BP diastolic 47–68; PULSE 71–99; RESP 17–22; TEMP 36.5–37.2; O2SAT 92–100
[2024-08-31] MEDS: oxyCODONE/ACETAMINOPHEN (*CRX) 5-325 MG TABLET 1 TABLET PO ×4 (02:35→21:34)
[2024-08-31 04:50] LABS: Hematocrit 30.2 % (37.0-47.0); Hemoglobin 9.4 g/dL (12.0-15.0); Mean Corpuscular HGB Conc 31.1 g/dl (32-36); Mean Corpuscular Hemoglobin 33.1 pg (26-34); Mean Corpuscular Volume 106.3 fl (80-100); Mean Platelet Volume 10.7 fl (7.4-10.4); Platelet Count Result 203 k/mm3 (150-375); Red Blood Count 2.84 M/mm3 (4.2-5.4); Red Cell Distribution Width 15.6 % (11.5-14.5); White Blood Count 11.8 K/mm3 (4.5-10.0)
[2024-08-31 05:01] LABS: Alanine Aminotransferase 15 U/L (6-35); Albumin Level 3.1 g/dL (3.5-5.1); Alkaline Phosphatase 66 U/L (38-126); Anion Gap 7 mmol/L (4-12); Aspartate Amino Transferase 29 U/L (14-36); Bilirubin,Total 0.9 mg/dL (0.2-1.3); Blood Urea Nitrogen 54 mg/dL (7-17); Calcium 9.2 mg/dL (8.4-10.2); Carbon Dioxide 29 mmol/L (22-30); Chloride 99 mmol/L (98-107); Estimated CRCL calculation 24 ml/min; Estimated Glomerular Filt Rate 21; Glucose 78 mg/dL (65-110); Potassium 3.4 mmol/L (3.4-5.0); Sodium 135 mmol/L (137-145)
[2024-08-31] MEDS: hydrALAZINE HCL 50 MG TABLET PO ×4 (06:27→23:50)
[2024-08-31] MEDS: DOXYCYCLINE HYCLATE 100 MG TABLET PO ×2 (06:27→18:24)
[2024-08-31 07:35] LABS: Glucose Point of Care 100 mg/dl (65-105)
[2024-08-31 08:03] LABS: Glucose Point of Care 84 mg/dl (65-105)
[2024-08-31] MEDS: amLODIPine BESYLATE 10 MG TABLET PO (09:02)
[2024-08-31] MEDS: FUROSEMIDE 40 MG TABLET PO ×2 (09:02→16:36)
[2024-08-31] MEDS: carvediloL 25 MG TABLET PO ×2 (09:02→20:06)
[2024-08-31] MEDS: ASPIRIN 81 MG ENTERIC TABLET PO (09:03)
[2024-08-31] MEDS: lisinopriL 20 MG TABLET 40 MG PO (09:03)
[2024-08-31] MEDS: FERROUS SULFATE 325 MG TABLET DR BY MOUTH (09:03)
[2024-08-31] MEDS: PRAVASTATIN SODIUM 20 MG TABLET 40 MG PO (09:03)
[2024-08-31] MEDS: allopurinoL 100 MG TABLET 200 MG PO (09:04)
--- NOTE | 2024-08-31 09:34 | P.PNCA_ITS ---
Progress Note: A&P Assessment and Plan (1) Acute heart failure with preserved ejection fraction (HFpEF, >= 50%): Code(s): I50.31 - Acute diastolic (congestive) heart failure Status: Acute Assessment and Plan: Some evidence of pulmonary vascular congestion is seen. Uncertain if this is related to chronic kidney disease or underlying cardiac issues. Echocardiogram shows LVEF 55-60%, moderate MR, severe biatrial enlargement. She has been shifted to p.o. lasix. Continue Coreg, Lisinopril. Cannot add Spironolactone due to renal function. (2) Chronic anticoagulation: Code(s): Z79.01 - [facility] (current) use of anticoagulants Status: Acute Assessment and Plan: Continue Xarelto 15mg once daily. (3) Chronic kidney disease, stage IV (severe): Code(s): N18.4 - Chronic kidney disease, stage 4 (severe) Status: Acute Assessment and Plan: Renal function remains stable. (4) Benign hypertension with chronic kidney disease: Code(s): I12.9 - Hypertensive chronic kidney disease with stage 1 through stage 4 chronic kidney disease, or unspecified chronic kidney disease Status: Acute Assessment and Plan: BP uncontrolled. Continue current meds, will increase Lisinopril to 40mg once daily. (5) Chronic atrial fibrillation: Code(s): I48.20 - Chronic atrial fibrillation, unspecified Status: Acute Assessment and Plan: Continue Xarelto and Coreg. Plan Cardiology will sign off. Please call with questions. Subjective Date/time seen: 08/31/24 09:34 Interval history: Cardiology follow up visit Date of service 08/31/2024: Feels okay today. No shortness of breath or palpitations. Review of Systems Review of Systems: All systems reviewed & are unremarkable except as noted in HPI and below (HPI) Constitutional: Constitutional: Denies difficulty sleeping and Denies excessive sweating Eyes: Eyes: Denies blurry vision ENT: Reports Normal hearing present Cardiovascular: Cardiovascular: Denies chest pain, Reports leg edema, Denies palpitations and Reports dyspnea Respiratory: Respiratory: Reports dyspnea Gastrointestinal: Gastrointestinal: Denies abdominal pain Genitourinary: Genitourinary: Denies hematuria Musculoskeletal: Musculoskeletal: Reports back pain Integumentary/Breasts: Skin/Breast: Reports dry skin Neurologic: Reports Normal hearing present and Denies Abnormal speech present Psychiatric: Psychiatric: Denies anxiety Endocrine: Endocrine: Denies excessive sweating and Denies palpitations Hematologic/Lymphatic: Hematologic/Lymphatic: Denies easy bleeding Allergic/Immunologic: Allergic/Immunologic: Denies GI upset with certain foods Exam Narrative: Alert oriented appears older than stated age Const: General: comfortable and no acute distress HENMT: Face/Nose/Sinus: Normal nares present Mouth: Yes moist mucous membranes Eyes: General: appearance normal, both eyes and all related structures Sclera: sclerae normal Neck: Neck: supple and no JVD Chest: Other: No reproducible chest wall pain to palpation Resp: Effort & Inspection: normal respiratory effort Auscultation: clear to auscultation bilaterally Cardio: Rate: regular rate Rhythm: abnormal rhythm irregularly irregular Heart sounds: no murmurs Other: Chronic lower extremity GI: Inspection: non-distended Skin: General skin exam: normal color Other: Lower extremities are slightly erythematous, significant dry skin Neuro: General: gait normal Cranial nerves: Yes Normal hearing present Speech: normal speech and No Abnormal speech present Extrem: General: edema Other: Chronic lower extremity edema Psych: Mental Status: mental status grossly normal Affect: normal affect Objective Data Vital Signs Vital Signs: Vital Signs - 24 hr 08/30/24 12:01 08/30/24 16:04 08/30/24 12:00 Temperature 36.9 C Pulse Rate 78 78 57 L Respiratory Rate 18 Blood Pressure 187/53 H Pulse Oximetry 98 Oxygen Delivery 08/30/24 16:00 08/30/24 20:16 08/30/24 20:00 Temperature 36.8 C Pulse Rate 88 75 Respiratory Rate 18 Blood Pressure 161/53 H Pulse Oximetry 96 Oxygen Delivery Room Air 08/30/24 20:00 08/30/24 20:00 08/31/24 00:00 Temperature 36.9 C Pulse Rate 83 65 82 Respiratory Rate 18 Blood Pressure 102/64 Pulse Oximetry 95 Oxygen Delivery 08/31/24 00:00 08/31/24 04:00 08/31/24 04:00 Temperature 36.8 C 37.2 C Pulse Rate 71 80 90 Respiratory Rate 18 18 Blood Pressure 158/68 H 127/60 Pulse Oximetry 96 93 Oxygen Delivery 08/31/24 08:00 08/31/24 09:02 Temperature 36.5 C Pulse Rate 99 85 Respiratory Rate 17 Blood Pressure 154/47 H Pulse Oximetry 92 Oxygen Delivery Intake/Output Intake/Output: Intake & Output 08/28/24 08/29/24 08/30/24 08/31/24 23:59 23:59 23:59 23:59 Intake Total 7586 157 2228 620 Output Total 020 388 1192 200 Balance 893 -523 -544 795 Meds/Results Medications: Active Medications Generic Name Dose Route Start Last Admin Trade Name Freq PRN Reason Stop Dose Admin Acetaminophen 650 mg 08/26/24 05:33 08/28/24 10:48 Acetaminophen 325 Mg Tablet PO 650 mg Q4H PRN Administration Mild Pain (1-3) or Fever Allopurinol 200 mg 08/26/24 09:00 08/31/24 09:04 Allopurinol 100 Mg Tablet PO 200 mg DAILY KARIME Administration Amlodipine Besylate 10 mg 08/26/24 09:00 08/31/24 09:02 Amlodipine Besylate 10 Mg Tablet PO 10 mg DAILY KARIME Administration Aspirin 81 mg 08/26/24 09:00 08/31/24 09:03 Aspirin 81 Mg Enteric Tablet PO 81 mg DAILY KARIME Administration Carvedilol 25 mg 08/25/24 22:40 08/31/24 09:02 Carvedilol 25 Mg Tablet PO 25 mg Q12HR KARIME Administration Cyclobenzaprine HCl 10 mg 08/25/24 22:36 08/27/24 13:29 Cyclobenzaprine Hcl 10 Mg Tablet PO 10 mg TID PRN Administration muscle spasm Dextrose 12.5 gm 08/25/24 22:39 08/27/24 06:37 Dextrose 50% 25 Gm/50 Ml Syringe IV PUSH 12.5 gm PRN PRN Administration Hypoglycemia Protocol Doxycycline Hyclate 100 mg 08/26/24 06:00 08/31/24 06:27 Doxycycline Hyclate 100 Mg Tablet PO 09/04/24 06:01 100 mg Q12H KARIME Administration Ferrous Sulfate 325 mg 08/26/24 09:00 08/31/24 09:03 Ferrous Sulfate [address] BY MOUTH 325 mg DAILY KARIME Administration Furosemide 40 mg 08/29/24 09:00 08/31/24 09:02 Furosemide 40 Mg Tablet PO 40 mg BID KARIME Administration Glucagon 1 mg 08/25/24 22:39 Glucagon For Inj 1 Mg Vial IM PRN PRN Hypoglycemia Protocol Glucose 15 gm 08/25/24 22:39 Glucose Oral Gel 15 Gm Of Glucse In 37.5 Gm Tube PO PRN PRN Hypoglycemia Protocol Guaifenesin 1,200 mg 08/26/24 09:00 08/30/24 20:16 Guaifenesin 12 Hr 600 Mg Tabcr PO 1,200 mg Q12HR KARIME Administration Hydralazine HCl 10 mg 08/28/24 15:18 08/29/24 20:35 Hydralazine Hcl 20 Mg/Ml Vial IV PUSH 10 mg Q8H PRN Administration Blood Pressure - High Hydralazine HCl 50 mg 08/30/24 01:00 08/31/24 06:27 Hydralazine Hcl 50 Mg Tablet PO 50 mg Q6HR KARIME Administration Dextrose 1,000 mls @ 100 mls/hr 08/25/24 22:39 Dextrose 5% 1,000 Ml IVPB PRN PRN Hypoglycemia Protocol Insulin Aspart 5 units 08/26/24 08:00 08/30/24 17:22 Insulin Aspart (*Bkc) 100 Units/Ml 0.05 units/kg (5 units) Not Given SUB-Q TIDWM [facility] Insulin Glargine 14 units 08/27/24 21:00 08/30/24 20:58 Insulin Glargine (*Bkc) 100 Units/Ml SUB-Q 14 units HS KARIME Administration Lisinopril 40 mg 08/29/24 09:00 08/31/24 09:03 Lisinopril 20 Mg Tablet PO 40 mg DAILY KARIME Administration Morphine Sulfate 2 mg 08/30/24 10:05 Morphine Sulfate (*Crx) 2 Mg/Ml Inj IV PUSH Q6H PRN Pain Rated 7-10 Ondansetron HCl 4 mg 08/29/24 10:55 08/30/24 20:22 Ondansetron Hcl Odt 4 Mg Tablet PO 4 mg Q6H PRN Administration Nausea And Vomiting Oxycodone/Acetaminophen 1 tablet 08/27/24 15:01 08/31/24 09:12 Oxycodone/Acetaminophen (*Crx) 5-325 Mg Tablet PO 1 tablet Q4H PRN Administration Pain Rated 7-10 Pravastatin Sodium 40 mg 08/26/24 09:00 08/31/24 09:03 Pravastatin Sodium 20 Mg Tablet PO 40 mg DAILY KARIME Administration Rivaroxaban 15 mg 08/27/24 17:00 08/30/24 16:20 Rivaroxaban 15 Mg Tablet PO 15 mg DAILY@1700 [facility] Administration Trazodone HCl 50 mg 08/26/24 21:00 08/30/24 20:16 Trazodone Hcl 50 Mg Tablet PO 50 mg QHS KARIME Administration Radiology Results: ITS Impressions Chest X-Ray 08/25/24 13:54 IMPRESSION: Cardiomegaly, pulmonary vascular congestion, pulmonary interstitial and subpleural edema and bilateral central and lower lung infiltrates, most likely due to congestive heart failure and pulmonary edema. Additional pneumonia or aspiration are not excluded Chest CT 08/26/24 10:10 IMPRESSION: 1. Mild pulmonary edema. 2. Small pleural effusions. Venous Doppler Study 08/28/24 22:00 IMPRESSION: Negative bilateral lower extremity venous US. No deep vein thrombosis. Labs Labs: Laboratory Results - last 24 hr 08/30/24 08/30/24 08/30/24 11:43 17:13 20:44 WBC RBC Hgb Hct MCV MCH MCHC RDW Plt Count MPV Sodium Potassium Chloride Carbon Dioxide Anion Gap BUN Creatinine Estim Creat Clear Calc Estimated GFR Glucose POC Capillary Glucose 118 H 146 H 122 H Calcium Total Bilirubin AST ALT Alkaline Phosphatase Total Protein Albumin 08/31/24 08/31/24 08/31/24 04:18 07:18 07:53 WBC 11.8 H RBC 2.84 L Hgb 9.4 L Hct 30.2 L MCV 106.3 H MCH 33.1 MCHC 31.1 L RDW 15.6 H Plt Count 203 MPV 10.7 H Sodium 135 L Potassium 3.4 Chloride 99 Carbon Dioxide 29 Anion Gap 7 BUN 54 H Creatinine 2.30 H Estim Creat Clear Calc 24 Estimated GFR 21 L Glucose 78 POC Capillary Glucose 100 84 Calcium 9.2 Total Bilirubin 0.9 AST 29 ALT 15 Alkaline Phosphatase 66 Total Protein 7.0 Albumin 3.1 L Quality VTE Prophylaxis VTE prophylaxis: pharmacologic ordered (on rivaroxaban)
[2024-08-31] MEDS: guaiFENesin 12 HR 600 MG TABCR 1200 MG PO ×2 (10:24→20:06)
[2024-08-31 11:44] LABS: Glucose Point of Care 106 mg/dl (65-105)
[2024-08-31] MEDS: ONDANSETRON HCL ODT 4 MG TABLET PO (12:33)
--- NOTE | 2024-08-31 13:57 | PM.IMPN ---
Progress Note: A&P Assessment and Plan (1) Suspected congestive heart failure: Code(s): R09.89 - Other specified symptoms and signs involving the circulatory and respiratory systems Status: Acute (2) Pneumonia: Qualifiers: Laterality: unspecified laterality Lung location: lower lobe of lung Pneumonia type: due to unspecified organism Qualified Code(s): J18.9 - Pneumonia, unspecified organism Code(s): J18.9 - Pneumonia, unspecified organism Status: Acute (3) Chronic kidney disease, stage IV (severe): Code(s): N18.4 - Chronic kidney disease, stage 4 (severe) Status: Acute (4) Chronic atrial fibrillation: Code(s): I48.20 - Chronic atrial fibrillation, unspecified Status: Acute (5) Chronic anticoagulation: Code(s): 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 Status: Acute (6) Essential (primary) hypertension: Code(s): I10 - Essential (primary) hypertension Status: Acute (7) CINDI on CPAP: Code(s): G47.33 - Obstructive sleep apnea (adult) (pediatric); Z99.89 - Dependence on other enabling machines and devices Status: Acute (8) Type 2 diabetes mellitus without complication, with long-term current use of insulin: Code(s): E11.9 - Type 2 diabetes mellitus without complications; 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 Status: Acute Plan CHF exacerbation Leg edema and on 1 liter oxygen, baseline is room air CT chest showed pulm edema continue lasix per cardiology Continue Coreg and lisinopril Cannot add spironolactone due to renal function monitor I and Os Bilateral leg stasis dermatitis vs cellulitis felt warm to palpation continue doxycycline until 09/04 Hypoglycemia BG 50 on 08/27 downgraded lantus to 14 u frmo 16 u continue monitor Pneumonia ruled out CT chest negative for pneumonia however will continue Abx for Cellulitis Chronic atrial fibrillation Xarelto decreased to 15mg nighttime per renal function CINDI continue CPAP HTN titrate home meds with clinical course DM2 SSi with accucheks, adjust with clinical course Continue lantus @14 u from 16 u monitor DVT prophylaxis on SCDs, Xarelto on hold for outpatient procedure tomorrow Subjective Date/time seen: 08/31/24 13:57 Interval history: No acute events overnight. Patient had episodes of hypoglycemia. Her Lantus was decreased from 14 units to 10 units. Her NovoLog has been decreased from 5 units to 3 units. Patient complains of nausea and reports not feeling good. Given Zofran. Holding discharge until tomorrow Review of Systems Review of Systems: 12 systems were reviewed and are negative except for as per HPI. Allergic/Immunologic: Allergic/Immunologic: Denies GI upset with certain foods Exam Narrative: General: Chronically ill-appearing female sitting up in bed in no distress. Weight: 109.1 kg. BMI: 41.3. HEENT: PERRL, EOMI. Sclera anicteric. Slightly pale conjunctiva. Oral mucosa moist. Crowded oropharynx. Neck: Supple. Exam limited due to neck circumference. No obvious jugular venous distention. Respiratory: Mildly tachypneic though she appears in no respiratory distress and is speaking in full sentences. Lung sounds are diminished at the bases with scattered crackles. Cardiovascular: Irregularly irregular rate and rhythm. Soft systolic murmur at the left sternal border. Gastrointestinal: Abdomen is soft, obese, nontender, and nondistended with positive bowel sounds. Skin: Warm. Skin is dry and scaly. Chronic skin changes of the bilateral lower legs due to stasis dermatitis without evidence of infection. Scattered, scaly lesions. Extremities: No cyanosis or clubbing. Bilateral lower extremity edema with some weeping. Neurological: Alert. Cranial nerves 2-12 are grossly intact. No gross focal deficits to casual conversation. Psychiatric: Pleasant and cooperative with normal mood and affect. Judgment and insight intact. Const: General: comfortable and no acute distress HENMT: Face/Nose/Sinus: Normal nares present Mouth: Yes moist mucous membranes Eyes: General: appearance normal, both eyes and all related structures Sclera: sclerae normal Neck: Neck: supple and no JVD Chest: Other: No reproducible chest wall pain to palpation Resp: Effort & Inspection: normal respiratory effort Auscultation: clear to auscultation bilaterally Cardio: Rate: regular rate Rhythm: regular rhythm and abnormal rhythm irregularly irregular Heart sounds: no murmurs Other: Chronic lower extremity GI: Inspection: non-distended Skin: General skin exam: normal color Other: Lower extremities are slightly erythematous, significant dry skin Neuro: General: gait normal Cranial nerves: Yes Normal hearing present Speech: normal speech and No Abnormal speech present Extrem: General: edema Other: Chronic lower extremity edema Psych: Mental Status: mental status grossly normal Affect: normal affect Objective Data Vital Signs Vital Signs: Vital Signs - 24 hr 08/30/24 16:04 08/30/24 16:00 08/30/24 20:16 Temperature 98.3 F Pulse Rate 78 88 75 Respiratory Rate 18 Blood Pressure 161/53 H Pulse Oximetry 96 Oxygen Delivery 08/30/24 20:00 08/30/24 20:00 08/30/24 20:00 Temperature 98.5 F Pulse Rate 83 65 Respiratory Rate 18 Blood Pressure 102/64 Pulse Oximetry 95 Oxygen Delivery Room Air 08/31/24 00:00 08/31/24 00:00 08/31/24 04:00 Temperature 98.2 F Pulse Rate 82 71 80 Respiratory Rate 18 Blood Pressure 158/68 H Pulse Oximetry 96 Oxygen Delivery 08/31/24 04:00 08/31/24 08:00 08/31/24 09:02 Temperature 98.9 F 97.7 F Pulse Rate 90 99 85 Respiratory Rate 18 17 Blood Pressure 127/60 154/47 H Pulse Oximetry 93 92 Oxygen Delivery 08/31/24 12:00 Temperature 98 F Pulse Rate 76 Respiratory Rate 18 Blood Pressure 141/60 H Pulse Oximetry 100 Oxygen Delivery Intake/Output Intake/Output: Intake & Output 08/28/24 08/29/24 08/30/24 08/31/24 23:59 23:59 23:59 23:59 Intake Total 2775 761 3761 980 Output Total 927 859 9306 200 Balance 447 -562 -443 389 Meds/Results Medications: Active Medications Generic Name Dose Route Start Last Admin Trade Name Palmerq PRN Reason Stop Dose Admin Acetaminophen 650 mg 08/26/24 05:33 08/28/24 10:48 Acetaminophen 325 Mg Tablet PO 650 mg Q4H PRN Administration Mild Pain (1-3) or Fever Allopurinol 200 mg 08/26/24 09:00 08/31/24 09:04 Allopurinol 100 Mg Tablet PO 200 mg DAILY KARIME Administration Amlodipine Besylate 10 mg 08/26/24 09:00 08/31/24 09:02 Amlodipine Besylate 10 Mg Tablet PO 10 mg DAILY KARIME Administration Aspirin 81 mg 08/26/24 09:00 08/31/24 09:03 Aspirin 81 Mg Enteric Tablet PO 81 mg DAILY KARIME Administration Carvedilol 25 mg 08/25/24 22:40 08/31/24 09:02 Carvedilol 25 Mg Tablet PO 25 mg Q12HR KARIME Administration Cyclobenzaprine HCl 10 mg 08/25/24 22:36 08/27/24 13:29 Cyclobenzaprine Hcl 10 Mg Tablet PO 10 mg TID PRN Administration muscle spasm Dextrose 12.5 gm 08/25/24 22:39 08/27/24 06:37 Dextrose 50% 25 Gm/50 Ml Syringe IV PUSH 12.5 gm PRN PRN Administration Hypoglycemia Protocol Doxycycline Hyclate 100 mg 08/26/24 06:00 08/31/24 06:27 Doxycycline Hyclate 100 Mg Tablet PO 09/04/24 06:01 100 mg Q12H KARIME Administration Ferrous Sulfate 325 mg 08/26/24 09:00 08/31/24 09:03 Ferrous Sulfate [address] BY MOUTH 325 mg DAILY KARIME Administration Furosemide 40 mg 08/29/24 09:00 08/31/24 09:02 Furosemide 40 Mg Tablet PO 40 mg BID KARIME Administration Glucagon 1 mg 08/25/24 22:39 Glucagon For Inj 1 Mg Vial IM PRN PRN Hypoglycemia Protocol Glucose 15 gm 08/25/24 22:39 Glucose Oral Gel 15 Gm Of Glucse In 37.5 Gm Tube PO PRN PRN Hypoglycemia Protocol Guaifenesin 1,200 mg 08/26/24 09:00 08/31/24 10:24 Guaifenesin 12 Hr 600 Mg Tabcr PO 1,200 mg Q12HR KARIME Administration Hydralazine HCl 10 mg 08/28/24 15:18 08/29/24 20:35 Hydralazine Hcl 20 Mg/Ml Vial IV PUSH 10 mg Q8H PRN Administration Blood Pressure - High Hydralazine HCl 50 mg 08/30/24 01:00 08/31/24 12:33 Hydralazine Hcl 50 Mg Tablet PO 50 mg Q6HR KARIME Administration Dextrose 1,000 mls @ 100 mls/hr 08/25/24 22:39 Dextrose 5% 1,000 Ml IVPB PRN PRN Hypoglycemia Protocol Insulin Aspart 3 units 08/31/24 17:00 Insulin Aspart (*Bkc) 100 Units/Ml SUB-Q TIDWM KARIME Insulin Glargine 10 units 08/31/24 21:00 Insulin Glargine (*Bkc) 100 Units/Ml SUB-Q HS [facility] Lisinopril 40 mg 08/29/24 09:00 08/31/24 09:03 Lisinopril 20 Mg Tablet PO 40 mg DAILY KARIME Administration Morphine Sulfate 2 mg 08/30/24 10:05 Morphine Sulfate (*Crx) 2 Mg/Ml Inj IV PUSH Q6H PRN Pain Rated 7-10 Ondansetron HCl 4 mg 08/29/24 10:55 08/31/24 12:33 Ondansetron Hcl Odt 4 Mg Tablet PO 4 mg Q6H PRN Administration Nausea And Vomiting Oxycodone/Acetaminophen 1 tablet 08/27/24 15:01 08/31/24 09:12 Oxycodone/Acetaminophen (*Crx) 5-325 Mg Tablet PO 1 tablet Q4H PRN Administration Pain Rated 7-10 Pravastatin Sodium 40 mg 08/26/24 09:00 08/31/24 09:03 Pravastatin Sodium 20 Mg Tablet PO 40 mg DAILY KARIME Administration Rivaroxaban 15 mg 08/27/24 17:00 08/30/24 16:20 Rivaroxaban 15 Mg Tablet PO 15 mg DAILY@1700 [facility] Administration Trazodone HCl 50 mg 08/26/24 21:00 08/30/24 20:16 Trazodone Hcl 50 Mg Tablet PO 50 mg QHS KARIME Administration Radiology Results: ITS Impressions Chest X-Ray 08/25/24 13:54 IMPRESSION: Cardiomegaly, pulmonary vascular congestion, pulmonary interstitial and subpleural edema and bilateral central and lower lung infiltrates, most likely due to congestive heart failure and pulmonary edema. Additional pneumonia or aspiration are not excluded Chest CT 08/26/24 10:10 IMPRESSION: 1. Mild pulmonary edema. 2. Small pleural effusions. Venous Doppler Study 08/28/24 22:00 IMPRESSION: Negative bilateral lower extremity venous US. No deep vein thrombosis. Labs Labs: Laboratory Results - last 24 hr 08/30/24 08/30/24 08/31/24 17:13 20:44 04:18 WBC 11.8 H RBC 2.84 L Hgb 9.4 L Hct 30.2 L MCV 106.3 H MCH 33.1 MCHC 31.1 L RDW 15.6 H Plt Count 203 MPV 10.7 H Sodium 135 L Potassium 3.4 Chloride 99 Carbon Dioxide 29 Anion Gap 7 BUN 54 H Creatinine 2.30 H Estim Creat Clear Calc 24 Estimated GFR 21 L Glucose 78 POC Capillary Glucose 146 H 122 H Calcium 9.2 Total Bilirubin 0.9 AST 29 ALT 15 Alkaline Phosphatase 66 Total Protein 7.0 Albumin 3.1 L 08/31/24 08/31/24 08/31/24 07:18 07:53 11:38 WBC RBC Hgb Hct MCV MCH MCHC RDW Plt Count MPV Sodium Potassium Chloride Carbon Dioxide Anion Gap BUN Creatinine Estim Creat Clear Calc Estimated GFR Glucose POC Capillary Glucose 100 84 106 H Calcium Total Bilirubin AST ALT Alkaline Phosphatase Total Protein Albumin Quality VTE Prophylaxis VTE prophylaxis: pharmacologic ordered (on rivaroxaban) Hospitalist MIPS Advance Care Plan I have confirmed that the patient's Advanced Care Plan is present, code status is documented, or surrogate decision maker is listed in patient medical record.: Yes Medication Reconciliation I have utilized all available resources to obtain, update and review the patients current medications (includes all prescriptions, OTC, herbals, cannabis, and nutritional supplements).: Yes
--- NOTE | 2024-08-31 14:02 | PCOTNOTE ---
Patient unavailable at this time for OT session. Patient having PT treatment session at this time.
[2024-08-31 16:27] LABS: Glucose Point of Care 112 mg/dl (65-105)
[2024-08-31] MEDS: CYCLOBENZAPRINE HCL 10 MG TABLET PO (16:36)
[2024-08-31] MEDS: RIVAROXABAN 15 MG TABLET PO (16:36)
[2024-08-31] MEDS: traZODone HCL 50 MG TABLET PO (20:06)
[2024-08-31 20:41] LABS: Glucose Point of Care 175 mg/dl (65-105)
[2024-08-31] MEDS: INSULIN GLARGINE (*BKC) 100 UNITS/ML 10 UNITS SUB-Q (21:30)
[2024-09-01] VITALS (7 sets, daily range): BP systolic 128–151; BP diastolic 58–72; PULSE 65–77; RESP 18–20; TEMP 36.4–36.9; O2SAT 91–99
[2024-09-01] MEDS: oxyCODONE/ACETAMINOPHEN (*CRX) 5-325 MG TABLET 1 TABLET PO ×2 (04:16→09:17)
[2024-09-01] MEDS: DOXYCYCLINE HYCLATE 100 MG TABLET PO (05:44)
[2024-09-01] MEDS: hydrALAZINE HCL 50 MG TABLET PO ×2 (05:44→12:47)
[2024-09-01 06:08] LABS: Hematocrit 28.2 % (37.0-47.0); Hemoglobin 8.8 g/dL (12.0-15.0); Mean Corpuscular HGB Conc 31.2 g/dl (32-36); Mean Corpuscular Hemoglobin 33.2 pg (26-34); Mean Corpuscular Volume 106.4 fl (80-100); Mean Platelet Volume 10.7 fl (7.4-10.4); Platelet Count Result 213 k/mm3 (150-375); Red Blood Count 2.65 M/mm3 (4.2-5.4); Red Cell Distribution Width 15.3 % (11.5-14.5); White Blood Count 13.5 K/mm3 (4.5-10.0)
[2024-09-01 06:19] LABS: Alanine Aminotransferase 15 U/L (6-35); Albumin Level 2.8 g/dL (3.5-5.1); Alkaline Phosphatase 84 U/L (38-126); Anion Gap 8 mmol/L (4-12); Aspartate Amino Transferase 32 U/L (14-36); Bilirubin,Total 0.9 mg/dL (0.2-1.3); Blood Urea Nitrogen 59 mg/dL (7-17); Calcium 9.3 mg/dL (8.4-10.2); Carbon Dioxide 28 mmol/L (22-30); Chloride 97 mmol/L (98-107); Estimated CRCL calculation 22 ml/min; Estimated Glomerular Filt Rate 19; Glucose 79 mg/dL (65-110); Potassium 3.3 mmol/L (3.4-5.0); Sodium 133 mmol/L (137-145)
[2024-09-01 08:20] LABS: Glucose Point of Care 85 mg/dl (65-105)
[2024-09-01 09:07] LABS: Add Urine Microscopic? YES; Appearance Urine Clear (Clear); Bacteria Urine None Seen /hpf; Bilirubin Urine Negative (Negative); Blood Urine Negative (Negative); Color Urine Yellow (Yellow); Glucose Urine UA Trace mg/dL (Negative); Ketones Urine Negative (Negative); Leukocyte Esterase Ur Negative LEU/UL (Negative); Nitrate Urine Negative (Negative); Non Pathogenic Casts 0-2; Protein Urine 3+ mg/dL (Negative); RBC Urine 0-2 /hpf (0-2); Squamous Epithelial Cell Urine Occasional /hpf (Few); Urobilinogen Urine 0.2 mg/dL (<2.0); WBC Urine 0-5 /hpf (0-3); pH Urine 5.5 (5.0-9.0)
[2024-09-01] MEDS: PRAVASTATIN SODIUM 20 MG TABLET 40 MG PO (09:15)
[2024-09-01] MEDS: amLODIPine BESYLATE 10 MG TABLET PO (09:15)
[2024-09-01] MEDS: carvediloL 25 MG TABLET PO (09:16)
[2024-09-01] MEDS: guaiFENesin 12 HR 600 MG TABCR 1200 MG PO (09:16)
[2024-09-01] MEDS: allopurinoL 100 MG TABLET 200 MG PO (09:16)
[2024-09-01] MEDS: ASPIRIN 81 MG ENTERIC TABLET PO (09:16)
[2024-09-01] MEDS: FUROSEMIDE 40 MG TABLET PO (09:17)
[2024-09-01] MEDS: lisinopriL 20 MG TABLET 40 MG PO (09:17)
[2024-09-01] MEDS: FERROUS SULFATE 325 MG TABLET DR BY MOUTH (09:17)
[2024-09-01] MEDS: ONDANSETRON HCL ODT 4 MG TABLET PO (09:18)
[2024-09-01] MEDS: CYCLOBENZAPRINE HCL 10 MG TABLET PO (09:18)
[2024-09-01 11:46] LABS: Glucose Point of Care 93 mg/dl (65-105)
--- NOTE | 2024-09-01 12:17 | P.DS_ITS ---
DS: Admitting Diagnosis Discharge Date 09/01/2024 Admitting Diagnosis Cellulitis DS: Discharge Diagnosis Discharge Diagnosis (1) Suspected congestive heart failure: Code(s): R09.89 - Other specified symptoms and signs involving the circulatory and respiratory systems Status: Acute (2) Pneumonia: Qualifiers: Laterality: unspecified laterality Lung location: lower lobe of lung Pneumonia type: due to unspecified organism Qualified Code(s): J18.9 - Pneumonia, unspecified organism Code(s): J18.9 - Pneumonia, unspecified organism Status: Acute (3) Chronic kidney disease, stage IV (severe): Code(s): N18.4 - Chronic kidney disease, stage 4 (severe) Status: Acute (4) Chronic atrial fibrillation: Code(s): I48.20 - Chronic atrial fibrillation, unspecified Status: Acute (5) Chronic anticoagulation: Code(s): Z79.01 - skilled nursing (current) use of anticoagulants Status: Acute (6) Essential (primary) hypertension: Code(s): I10 - Essential (primary) hypertension Status: Acute (7) CINDI on CPAP: Code(s): G47.33 - Obstructive sleep apnea (adult) (pediatric); Z99.89 - Dependence on other enabling machines and devices Status: Acute (8) Type 2 diabetes mellitus without complication, with long-term current use of insulin: Code(s): E11.9 - Type 2 diabetes mellitus without complications; 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 We advised to follow up with PCP for her diabetes and currently discontinuing all insulin which was initiated during hospitalization. continue monitor Pneumonia ruled out CT chest negative for pneumonia however will continue Abx for Cellulitis Chronic atrial fibrillation Xarelto decreased to 15mg nighttime per renal function Patient's Xarelto is on hold due to oncoming visited with pain management for possible 3rd translaminar versus transforaminal epidural steroid injection. DVT prophylaxis on SCDs, Xarelto on hold for outpatient procedure tomorrow DS: Summary Hospital Course Hospital Course: This is a 74-year-old female with history of stroke, atrial fibrillation on chronic anticoagulation, hypertension, dyslipidemia, chronic kidney disease, chronic anemia, obstructive sleep apnea, peripheral vascular disease, sick sinus syndrome status post permanent pacemaker implantation, and other comorbidities who presented to the emergency department via private vehicle with complaints of ?pain all over? and leg swelling. The patient provides the following history. She has not been feeling well for several days with generalized headache, cough productive of occasional clear sputum, myalgias, shortness of breath, orthopnea, and increasing lower extremity edema to the point where her legs are now weeping. She denies fever, chills, sweats, sinus congestion, sore throat, cough, chest pain, pleuritic pain, palpitations, nausea, vomiting, diarrhea, dysphagia, concerns for aspiration, dysuria, and calf pain. In the ED: She was afebrile on arrival. Blood pressures have been running in the 170s to 180s systolic. She is in atrial fibrillation is rate controlled in the 80s. Labs are significant for WBC count 13.4, hemoglobin 10.3, MCV 109.1, BUN 35, creatinine 2.30, proBNP 68247. Chest x-ray showed cardiomegaly with pulmonary vascular congestion, pulmonary interstitial in sub pleural edema, and bilateral central and lower lung infiltrates most likely due to congestive heart failure and pulmonary edema. CHF exacerbation Leg edema and on 1 liter oxygen, baseline is room air CT chest showed pulm edema continue lasix per cardiology Continue Coreg and lisinopril Cannot add spironolactone due to renal function monitor I and Os Bilateral leg stasis dermatitis vs cellulitis felt warm to palpation continue doxycycline until 09/04 Hypoglycemia BG 50 on 08/27 During hospitalization downgraded lantus to 14 u frmo 16 u Patient reports previously she was in hypoglycemic agent but was discontinued by the PCP. We advised to follow up with PCP for her diabetes and currently discontinuing all insulin which was initiated during hospitalization. continue monitor Pneumonia ruled out CT chest negative for pneumonia however will continue Abx for Cellulitis Chronic atrial fibrillation Xarelto decreased to 15mg nighttime per renal function Patient's Xarelto is on hold due to oncoming visited with pain management for possible 3rd translaminar versus transforaminal epidural steroid injection. CINDI continue CPAP HTN titrate home meds with clinical course DM2 Follow-up with the primary care Discharged with following instructions: Patient's Xarelto is on hold due to oncoming visited with pain management for possible 3rd translaminar versus transforaminal epidural steroid injection. We advise to continue Xarelto after the procedure at the discussion of pain management. Patient needs to follow up with primary care physician within week upon discharge. Patient reports previously she was in hypoglycemic agent but was discontinued by the PCP. We advised to follow up with PCP for her diabetes and currently discontinuing all insulin which was initiated during hospitalization. Continue doxycycline until 09/04. Status at Discharge Cognitive/behavioral status at discharge: Stable Time Spent with Patient Time attestation: Total time spent providing and/or coordinating discharge services:45 minutes Exam Narrative: General: Chronically ill-appearing female sitting up in bed in no distress. Weight: 109.1 kg. BMI: 41.3. HEENT: PERRL, EOMI. Sclera anicteric. Slightly pale conjunctiva. Oral mucosa moist. Crowded oropharynx. Neck: Supple. Exam limited due to neck circumference. No obvious jugular venous distention. Respiratory: Mildly tachypneic though she appears in no respiratory distress and is speaking in full sentences. Lung sounds are diminished at the bases with scattered crackles. Cardiovascular: Irregularly irregular rate and rhythm. Soft systolic murmur at the left sternal border. Gastrointestinal: Abdomen is soft, obese, nontender, and nondistended with positive bowel sounds. Skin: Warm. Skin is dry and scaly. Chronic skin changes of the bilateral lower legs due to stasis dermatitis without evidence of infection. Scattered, scaly lesions. Extremities: No cyanosis or clubbing. Bilateral lower extremity edema with some weeping. Neurological: Alert. Cranial nerves 2-12 are grossly intact. No gross focal deficits to casual conversation. Psychiatric: Pleasant and cooperative with normal mood and affect. Judgment and insight intact. Const: General: comfortable and no acute distress HENMT: Face/Nose/Sinus: Normal nares present Mouth: Yes moist mucous membranes Eyes: General: appearance normal, both eyes and all related structures Sclera: sclerae normal Neck: Neck: supple and no JVD Chest: Other: No reproducible chest wall pain to palpation Resp: Effort & Inspection: normal respiratory effort Auscultation: clear to auscultation bilaterally Cardio: Rate: regular rate Rhythm: regular rhythm and abnormal rhythm irregularly irregular Heart sounds: no murmurs Other: Chronic lower extremity GI: Inspection: non-distended Skin: General skin exam: normal color Other: Lower extremities are slightly erythematous, significant dry skin Neuro: General: gait normal Cranial nerves: Yes Normal hearing present Speech: normal speech and No Abnormal speech present Extrem: General: edema Other: Chronic lower extremity edema Psych: Mental Status: mental status grossly normal Affect: normal affect DS: Data Data Completed and Pending Labs on day of discharge: Labs from last 24 hours 09/01/24 09/01/24 09/01/24 11:39 08:24 08:14 WBC RBC Hgb Hct MCV MCH MCHC RDW Plt Count MPV Sodium Potassium Chloride Carbon Dioxide Anion Gap BUN Creatinine Estim Creat Clear Calc Estimated GFR Glucose POC Capillary Glucose 93 85 Calcium Total Bilirubin AST ALT Alkaline Phosphatase Total Protein Albumin Urine Color Yellow Urine Appearance Clear Urine pH 5.5 Ur Specific [place] 1.020 Urine Protein 3+ H Urine Glucose (UA) Trace H Urine Ketones Negative Ur Blood (Man) Negative Urine Nitrate Negative Urine Bilirubin Negative Urine Urobilinogen 0.2 Ur Leukocyte Esterase Negative Urine RBC 0-2 Urine WBC 0-5 Ur Squamous Epith Cells Occasional Urine Bacteria None seen Urine Casts 0-2 09/01/24 08/31/24 08/31/24 05:43 19:37 16:23 WBC 13.5 H RBC 2.65 L Hgb 8.8 L Hct 28.2 L MCV 106.4 H MCH 33.2 MCHC 31.2 L RDW 15.3 H Plt Count 213 MPV 10.7 H Sodium 133 L Potassium 3.3 L Chloride 97 L Carbon Dioxide 28 Anion Gap 8 BUN 59 H Creatinine 2.50 H Estim Creat Clear Calc 22 Estimated GFR 19 L Glucose 79 POC Capillary Glucose 175 H 112 H Calcium 9.3 Total Bilirubin 0.9 AST 32 ALT 15 Alkaline Phosphatase 84 Total Protein 6.0 L Albumin 2.8 L Urine Color Urine Appearance Urine pH Ur Specific [place] Urine Protein Urine Glucose (UA) Urine Ketones Ur Blood (Man) Urine Nitrate Urine Bilirubin Urine Urobilinogen Ur Leukocyte Esterase Urine RBC Urine WBC Ur Squamous Epith Cells Urine Bacteria Urine Casts Discharge Plan Discharge Attending physician on discharge: Harshil Cordero Consulting providers: Meir España Discharging Clinician: Harshil Cordero Patient Disposition: SNF Activity: as tolerated Diet: diabetic Discharge Instructions: Patient's Xarelto is on hold due to oncoming visited with pain management for possible 3rd translaminar versus transforaminal epidural steroid injection. We advise to continue Xarelto after the procedure at the discussion of pain management. Patient needs to follow up with primary care physician within week upon discharge. Patient reports previously she was in hypoglycemic agent but was discontinued by the PCP. We advised to follow up with PCP for her diabetes and currently discontinuing all insulin which was initiated during hospitalization. Continue doxycycline until 09/04. Patient Instructions: Antibiotic Form, Rivaroxaban (By mouth) Stand Alone Forms: General Discharge Information Discharge Medications: New pantoprazole 40 mg Tablet,Delayed Release (Dr/Ec) 40 mg PO QAM Qty: 20 0RF doxycycline hyclate 100 mg Tablet 100 mg PO Q12H Qty: 8 0RF furosemide [Lasix] 40 mg tablet 40 mg PO BID Qty: 30 0RF oxycodone-acetaminophen 5-325 mg tablet 1 tablet PO Q4H PRN (Reason: pain) Qty: 14 0RF hydralazine 50 mg tablet 50 mg PO QID Qty: 30 0RF Continued ondansetron 4 mg tablet,disintegrating 4 mg PO Q6H PRN (Reason: nausea and vomiting) Qty: 10 0RF ferrous sulfate [FeroSul] 325 mg (65 mg iron) tablet 325 mg PO DAILY aspirin [Adult Low Dose Aspirin] 81 mg tablet,delayed release (DR/EC) 81 mg PO DAILY Hold Instructions: Hold for 1 week. Resume on 07/07/2021 fenofibrate 150 mg capsule 150 mg PO DAILY Qty: 90 3RF pravastatin 40 mg tablet 40 mg PO DAILY Qty: 90 3RF lisinopril 30 mg tablet 30 mg PO DAILY Qty: 90 3RF cyclobenzaprine 10 mg tablet 10 mg PO TID PRN (Reason: muscle spasm) Qty: 90 11RF Hold Instructions: expensive allopurinol 100 mg tablet 200 mg PO DAILY Qty: 60 11RF carvedilol 25 mg tablet 25 mg PO Q12H Qty: 180 3RF trazodone 50 mg tablet 50 mg PO QHS Qty: 30 11RF Hold Instructions: fatigue amlodipine 10 mg tablet 10 mg PO DAILY Qty: 90 3RF cholecalciferol (vitamin D3) 1,250 mcg (50,000 unit) capsule 50,000 unit PO WEEKLY Qty: 4 2RF hydrochlorothiazide 25 mg tablet 25 mg PO DAILY Qty: 30 11RF Held Xarelto 20 mg Tablet 20 mg PO DAILY Hold Instructions: Resume on 09/12/24. Currently holding Xarelto for 3rd transforaminal versus trans laminar epidural steroid injection on 09/04/2024 . We advise to resume Xarelto after the procedure at the discretion of pain management Patient Comments: Paused for 3 days before she received a pain shot Rx Instructions: must administer with evening meal Date of admission: 08/26/24 15:28 Primary Care Provider: Ash,Joni Sneed Admitting Provider: Kye Cortes Attending physician on admission: Kye Cortes Condition: Stable
[2024-09-01] MEDS: PANTOPRAZOLE 40 MG TABLET PO (12:47)
[2024-09-01 22:39] LABS: Legionella pneumophila Ag Ur NOT DETECTED
== END 2024-09-01 15:00 | DRG 291 ==
LOC: ANHED 17:11 → ANH2MED 17:54
PROVIDERS: Internal Medicine; Physician Assistant; Admitting Provider Internal Medicine; Emergency Provider Preventive Medicine Aerospace Medicine; PCP Family Medicine; Visit Provider General Practice
DX: I13.0 Hypertensive heart and chronic kidney disease with heart failure and stage 1 through stage 4 chronic kidney disease, or unspecified chronic kidney disease (principal); I50.31 Acute diastolic (congestive) heart failure; N17.9 Acute kidney failure, unspecified; N18.4 Chronic kidney disease, stage 4 (severe); I48.20 Chronic atrial fibrillation, unspecified; I27.20 Pulmonary hypertension, unspecified; I49.5 Sick sinus syndrome; I87.2 Venous insufficiency (chronic) (peripheral); I69.393 Ataxia following cerebral infarction; E11.22 Type 2 diabetes mellitus with diabetic chronic kidney disease; E11.42 Type 2 diabetes mellitus with diabetic polyneuropathy; E11.51 Type 2 diabetes mellitus with diabetic peripheral angiopathy without gangrene; E11.649 Type 2 diabetes mellitus with hypoglycemia without coma; E53.8 Deficiency of other specified B group vitamins; E55.9 Vitamin D deficiency, unspecified; E78.5 Hyperlipidemia, unspecified; G89.29 Other chronic pain; M54.59 Other low back pain; G47.33 Obstructive sleep apnea (adult) (pediatric); H81.10 Benign paroxysmal vertigo, unspecified ear; Z20.822 Contact with and (suspected) exposure to COVID-19; F32.A Depression, unspecified; F41.9 Anxiety disorder, unspecified; F17.210 Nicotine dependence, cigarettes, uncomplicated; Z79.01 Long term (current) use of anticoagulants; Z79.82 Long term (current) use of aspirin; Z86.0101 Personal history of adenomatous and serrated colon polyps; Z95.0 Presence of cardiac pacemaker
CPT/HCPCS: 36415; 71045; 71046; 71250; 80048; 80053; 81001; 82607; 82728; 82746; 82948; 83540; 83550; 83605; 83735; 83880; 84145; 84439; 84443; 84480; 84484; 85025; 85027; 86140; 86738; 87086; 87449; 87636; 87641; 87899; 93005; 93306; 93970; 96365; 97110; 97161; 97166; 97530; 99285; A9270; G0378; J0360; J0692; J0696; J1756; J1815; J1940; J2270; J7050; Q9957